=== PATIENT | male | born 1935 | race Caucasian/White ===

== ENCOUNTER 2016-10-02 17:12 | Inpatient (IN) | payer OTHER ==
[~2016-10-02] VITALS: Ht 175.3 cm; Wt 96.5 kg
[~2016-10-02 17:12] MED LIST: ACET-1256 PO; ALPR-385 PO; ASPI81TA28 PO; CALC1CAP36 PO; CHOL2000 PO; CLOP1TAB15 PO; CRD200 PO; ELQ25 PO; GLIM1TAB PO; ISORDIL PO; LEVO25TA5 PO; LISI-461 PO; LSX/40 PO; NTRGSL/4 UT; OXYC-57 PO; PRAV80TA2 PO; SPIR25TA PO
[2016-10-02] MEDS ORDERED: CRD200 PO (17:47)
[2016-10-02] MEDS ORDERED: TPRSR/25 PO (17:47)
[2016-10-02] MEDS ORDERED: ISOS10TA2 PO (17:47)
[2016-10-02 17:59] LABS: BASO % 0.2 %; BASO ABS # 0.02 K/uL (0-0.2); COMPLETE YES; EOS % 0.6 %; HEMATOCRIT 41.2 % (42-52); LYMPH % 8.2 %; LYMPH ABS # 0.88 K/uL (1.2-3.4); MEAN CELL VOLUME 95.4 fL (80-100); MEAN CORPUSCULAR HEMOGLOBIN 33.6 pg (25-34); MEAN CORPUSCULAR HGB CONC 35.2 g/dl (32-36); MEAN PLATELET VOLUME 9.1 fL (7.4-10.4); MONO % 8.3 %; NEUT % 81.7 %; PLATELET COUNT 209 K/uL (130-400); RED BLOOD COUNT 4.32 M/uL (4.7-6.1)
--- NOTE | 2016-10-02 18:11 | DIAGNOSTIC IMAGING REPORT ---
CHEST ONE VIEW PORTABLE CLINICAL HISTORY: Chest pain. Shortness of breath. COMPARISON STUDY: Chest radiograph July 29, 2016. FINDINGS: Note is made of a left subclavian biventricular pacer/AICD, median sternotomy wires and clips from bypass grafting. There is no pneumothorax. There are small bilateral pleural effusions. Mild interstitial thickening suggests mild pulmonary edema. Note is made of moderate cardiomegaly. IMPRESSION: 1. Mild pulmonary edema and small bilateral pleural effusions. 2. Stable moderate cardiomegaly. Electronically signed by: Venancio Kim M.D. 10/02/2016 6:09 PM Dictated Date/Time: 10/02/2016 6:08 PM
[2016-10-02 18:13] LABS: PROTHROMBIN TIME (PATIENT) 10.7 SECONDS (9.0-12.0)
[2016-10-02 18:16] LABS: BUN/CREATININE RATIO 19.6 (10-20); CALCIUM 9.3 mg/dl (8.5-10.1); CREATININE 2.4 mg/dl (0.60-1.40); POTASSIUM 4.9 mmol/L (3.5-5.1)
[2016-10-02] MEDS ORDERED: FUROSEMIDE 40 MG/4 ML VIAL IV SCH (19:09)
[2016-10-02] MEDS ORDERED: ONDANSETRON INJ 2 MG/ML 2 ML VIAL IV PRN (19:15)
[2016-10-02] MEDS ORDERED: NITROGLYCERIN 0.4 MG SL PER TAB CHARGE SL PRN (19:15)
[2016-10-02] MEDS ORDERED: ALPRAZOLAM 0.5 MG TAB PO PRN (19:15)
[2016-10-02] MEDS ORDERED: GLUCOSE 40% GEL 15 GM TUBE PO PRN (19:30)
[2016-10-02] MEDS ORDERED: GLUCAGON FOR INJ 1 MG VIAL SQ PRN (19:30)
[2016-10-02] MEDS ORDERED: DEXTROSE 50% 50 ML SYR IV PRN (19:30)
[2016-10-02] MEDS ORDERED: GLUCOSE 10 TABS/TUBE PO PRN (19:30)
--- NOTE | 2016-10-02 19:38 | History and Physical ---
History & Physical Date & Time of Service: Oct 02, 2016 at 19:20 Chief Complaint: Sob, Chest Pain, Nausea Primary Care Physician: Sobeida Cabrera M.D. History of Present Illness Source: patient, family, clinic records, hospital records Patient seen and examined. 80 year old male with PMHx of CAD s/p CABGx4, Severe systolic CHF EF<15% s/p BIV pacer defibrillator, HN, DM2, PAF on eliquis, PVD, CKD stage 3, Hypothyroidism and other problems listed below presents to the ED complaining of chest pain x 4 days. Patient reports he has had this chest pain off and on for years since he had a CABG in 1990. He states that he was told that the wires were too tight. He states that when he lifts something heavy sometimes this happens. He reports 5 days ago the patient lifted a 5 gallon bucket of corn. He states the neck day the bottom of his sternum was sore and since then he has had constant sternal pain that he describes as squeezing and rates as an 8/10. He reports ice packs help this pain for a short time. 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 He states distances he could usually walk he now needs to stop twice to catch his breath. This is what prompted him to come to the ED. He states he occasionally has pain in the area where the pacemaker is but denies any defibrillator shocks. He denies fevers, chills, dizziness, URI symptoms, palpitations, orthopnea, PND, nausea, vomiting, diarrhea, dysuria, calf pain and edema. He denies weight gain. In the ED patient is mildly tachycardic, Luiza are negative x1 , EKG shows ventricular paced rhythm, CXR shows mild pulmonary edema and effusions. The patient is currently resting comfortably and has not had any pain since arrival. Past Medical/Surgical History Medical Problems: (1) CKD (chronic kidney disease) stage 3, GFR 30-59 ml/min Status: Chronic (2) Coronary artery disease Permanent Comment: s/p ID s/p CABG x 4 1990 Status: Chronic (3) Diabetes mellitus, type II Status: Chronic (4) Dyslipidemia Status: Chronic (5) History of ventricular tachycardia Status: Chronic (6) Hypertension Status: Chronic (7) PAD (peripheral artery disease) Permanent Comment: s/p left FUEL ASSEMBLER / SFA / popliteal arthrectomy and angioplasty left SFA stent Status: Chronic (8) Spinal stenosis of lumbar region Status: Chronic (9) Systolic CHF, chronic Permanent Comment: LVEF 15-20% by echo 2002 LVEF 25-29% by echo 06/08/13 Status: Chronic Surgical Problems: (1) Status post cardiac pacemaker procedure Permanent Comment: initially had single chamber pacer AICD, upgraded to BiV device in 2008, generator change in 03/2015 Status: Chronic (2) Status post coronary artery bypass grafting Status: Chronic (3) Status post lumbar surgery Status: Chronic (4) Status post tonsillectomy Status: Chronic Family History FH: diabetes mellitus FATHER FH: lung cancer FATHER Social History Smoking Status: Former Smoker Alcohol Use: none Drug Use: none Marital Status: Housing status: lives with family Occupational Status: retired Immunizations History of Influenza Vaccine: Yes Influenza Vaccine Date: Jun 20, 2015 History of Tetanus Vaccine?: Yes Tetanus Immunization Date: Jun 09, 2013 History of Pneumococcal: Yes Pneumococcal Date: Feb 21, 2015 History of Hepatitis B Vaccine: No Multi-Drug Resistant Organisms History of MDRO: No Allergies Coded Allergies: Ciprofloxacin (Verified Allergy, Unknown, UNKNOWN, 10/02/16) FROM ENDO PRE-PROCEDURE ORDERSET Home Medications Scheduled Acetaminophen (Tylenol), 1,000 MG PO BID Amiodarone HCl (Amiodarone HCl), 200 MG PO BID Apixaban (Eliquis), 2.5 MG PO BID Calcitriol (Calcitriol), 0.25 MCG PO QAM Cholecalciferol (Vitamin D3), 2,000 INTUNIT PO QPM Clopidogrel (Plavix), 75 MG PO QAM Furosemide (Lasix), 40 MG PO QAM Glimepiride (Amaryl), 1 MG PO QAM Isosorbide Dinitrate (Isordil), 10 MG PO BID Levothyroxine Sodium (Levothyroxine Sodium), 25 MCG PO QAM Lisinopril (Zestril), 5 MG PO QPM Metoprolol Succinate (Metoprolol Succinate ER), 12.5 MG PO HS Pravastatin Sodium (Pravastatin Sodium), 80 MG PO QPM Spironolactone (Aldactone), 12.5 MG PO QPM Scheduled PRN Alprazolam (Xanax), 1 MG PO BID PRN for Anxiety Nitroglycerin (Nitrostat), 0.4 MG UT UD PRN for Chest Pain Review of Systems Constitutional: No chills, No fever Eyes: No worsening of vision ENT: No nasal symptoms Respiratory: + dyspnea on exertion, + shortness of breath, No cough, No dyspnea at rest Cardiovascular: + chest pain, No PND, No edema, No orthopnea, No palpitations Abdomen: No constipation, No diarrhea, No nausea, No pain, No vomiting Musculoskeletal: No calf pain, No swelling Genitourinary - Male: No dysuria Neurologic: No numbness/tingling, No vertigo Psychiatric: No anxiety Endocrine: No fatigue Hematologic / Lymphatic: No abnormal bleeding/bruising, No clotting problems Integumentary: No itch, No rash Allergic / Immunologic: No environmental allergies Physical Exam Vital Signs Date Time Temp Pulse Resp B/P Pulse Ox O2 Delivery O2 Flow Rate FiO2 10/02/16 17:50 96 Room Air 10/02/16 17:48 96 Room Air 10/02/16 17:37 110 10/02/16 17:17 36.4 111 20 108/75 94 Room Air General Appearance: + pertinent finding (Pleasant WD/WN 80 year old male lying in bed in NAD with at bedside ) Head: normocephalic, atraumatic Eyes: PERRL, EOMI, sclerae normal ENT: hearing grossly normal, pharynx normal Neck: supple, no JVD, trachea midline Respiratory/Chest: chest non-tender, lungs clear, normal breath sounds, no respiratory distress, no accessory muscle use Cardiovascular: no edema, no gallop, no JVD, no murmur, normal peripheral pulses, + tachycardia (low 100s, regular) Abdomen/GI: normal bowel sounds, non tender, soft Back: normal inspection, no muscle spasm Extremities/Musculoskelatal: no calf tenderness, normal capillary refill, no pedal edema Neurologic/Psych: alert, oriented x 3 Skin: normal color, warm/dry, no rash Lymphatic: no adenopathy Diagnostics Laboratory Results Results Past 24 Hours Test 10/02/16 17:45 10/02/16 17:50 Range/Units White Blood Count 10.70 4.8-10.8 K/uL Red Blood Count 4.32 4.7-6.1 M/uL Hemoglobin 14.5 14.0-18.0 g/dL Hematocrit 41.2 42-52 % Mean Corpuscular Volume 95.4 80-100 fL Mean Corpuscular Hemoglobin 33.6 25-34 pg Mean Corpuscular Hemoglobin Concent 35.2 32-36 g/dl Platelet Count 209 130-400 K/uL Mean Platelet Volume 9.1 7.4-10.4 fL Neutrophils (%) (Auto) 81.7 % Lymphocytes (%) (Auto) 8.2 % Monocytes (%) (Auto) 8.3 % Eosinophils (%) (Auto) 0.6 % Basophils (%) (Auto) 0.2 % Neutrophils # (Auto) 8.74 1.4-6.5 K/uL Lymphocytes # (Auto) 0.88 1.2-3.4 K/uL Monocytes # (Auto) 0.89 0.11-0.59 K/uL Eosinophils # (Auto) 0.06 0-0.5 K/uL Basophils # (Auto) 0.02 0-0.2 K/uL RDW Standard Deviation 47.6 36.4-46.3 fL RDW Coefficient of Variation 13.7 11.5-14.5 % Immature Granulocyte % (Auto) 1.0 % Immature Granulocyte # (Auto) 0.11 0.00-0.02 K/uL Prothrombin Time 10.7 9.0-12.0 SECONDS Prothromb Time International Ratio 1.0 0.9-1.1 Activated Partial Thromboplast Time 25.9 21.0-31.0 SECONDS Partial Thromboplastin Ratio 1.0 Sodium Level 139 136-145 mmol/L Potassium Level 4.9 3.5-5.1 mmol/L Chloride Level 105 98-107 mmol/L Carbon Dioxide Level 20 21-32 mmol/L Anion Gap 14.0 3-11 mmol/L Blood Urea Nitrogen 47 7-18 mg/dl Creatinine 2.40 0.60-1.40 mg/dl Est Creatinine Clear Calc Drug Dose 28.9 ml/min Estimated GFR () 28.7 Estimated GFR (Non- 24.7 BUN/Creatinine Ratio 19.6 10-20 Random Glucose 210 70-99 mg/dl Calcium Level 9.3 8.5-10.1 mg/dl Bedside Troponin I 0.010 0-0.045 ng/ml Diagnostic Radiology CXR Per radiologist read: IMPRESSION: 1. Mild pulmonary edema and small bilateral pleural effusions. 2. Stable moderate cardiomegaly. EKG Ventricular paced 115 BPM Impression Assessment and Plan 80 year old male with severe ischemic cardiomyopathy presents to the ED complaining of chest pain x 5 days, SOB x 2 days. ACUTE ON CHRONIC SYSTOLIC HEART FAILURE -Admit to tele -CXR: with mild pulmonary edema and effusions -Recent echo with EF<15% -Will diuresis with IV Lasix 40mg BID, first dose now -interrogate pacemaker -Low sodium, AHA diet -I&Os, Daily weights -Cardiology consult placed - defer repeat Echo to cardiology. CHEST PAIN - H/O CAD s/p CABG -Luiza negative x1 -Serial Luiza, EKGs -continue Plavix, BB, Statin, ACEI -cardiology consult placed - follows with Arie Bhupendra as outpatient PAROXYSMAL AFIB -currently in paced rhythm, but tachy -continue BB, Amiodarone and Eliquis -monitor in tele CKD STAGE 3 -Crea 2.4 today has been running around 2 -Increased crea could be secondary to CHF -Will diuresis with Lasix 40mg IV BID -follow PRP closely for renal function changes -avoid nephrotoxic agents as able DM2 -recent A1c 6.6 -Hold po diabetic agents -SSI coverage -BSG AC HS -consistent carb diet HTN -stable -continue Lisinopril, spironolactone -monitor in tele HYPOTHYROIDISM -continue Synthroid -check TSH HLD -continue Statin DVT PROPHYLAXIS: Eliquis CODE STATUS: FULL CODE per my discussion with the patient DISPO:In my clinical judgment this beneficiary meets acute admission criteria, established by [facility], that includes being hospitalized through two midnights. discharge planning eval Patient seen in collaboration with Dr. Sullivan VTE Prophylaxis VTE Risk Assessment Done? Y/N: Yes Risk Level: Moderate Note ATTENDING ADDENDUM Record reviewed. Patient interviewed and examined. Care coordinated with Marlene Ulloa PA-C. Please refer to her documentation for patient's history. Briefly, 80 YO male with history of ischemic cardiomyopathy and other problems as noted. Presented to ED with worsening ROBERTSON. No fever or cough. EXAM: General- no acute distress VS- as noted HEENT- Neck- + JVD Lungs- clear to auscultation Heart- RRR, ? apical S3 Abdomen- + BS, soft, nontender Extremities- trace pretibial edema; no calf tenderness Neuro- alert DATA: Hgb 14. Troponin < 0.015. BUN / creat 45/2.4. Other lab studies as noted. CXR- cardiomegaly, pulmonary edema, small pleural effusions. EKG- ventricular paced rhythm at 115/min. ASSESSMENT AND PLAN: Acute on chronic left ventricular systolic heart failure. Tachycardia- ? mechanism. Baseline LVEF ~ 15%. Manage initially with IV furosemide. Continue lisinopril and spironolactone with caution in light of elevated creatinine. Consult Cardiology. Please refer to GHADA Ulloa's documentation for discussion of other issues. Carlos Sullivan MD .
--- NOTE | 2016-10-02 20:31 | EMERGENCY ROOM VISIT NOTE ---
History Report prepared by Erick: Jo Ann Power Under the Supervision of: Dr. Rufus Liang M.D. First contact with patient: 17:20 Chief Complaint: CARDIAC ASSESSMENT Stated Complaint: SOB, CHEST PAIN, NAUSEA History of Present Illness The patient is a 80 year old male who presents to the Emergency Room with complaints of worsening shortness of breath over the past 2 days. His shortness of breath is worse with exertion. He also complains of intermittent tightness that shoots across his chest. Recently, the patient developed some epigastric abdominal pain after picking up a 5 lb gallon of corn. He states that this pain feels similar to when he was told his sternal wires were too tight 15 years ago. The patient has a history of heart disease and a-flutter. He is on Eliquis. He has a defibrillator/pacemaker. Denies fever, cough, leg swelling, or other complaints. Source of History: patient Onset: 2 days Position: other (Global - SOB) Timing: worsening Modifying Factors (Worsening): exertion Associated Symptoms: + abdominal pain, + chest pain, No cough, No fevers Review of Systems See HPI for pertinent positives & negatives. A total of 10 systems reviewed and were otherwise negative. Past Medical & Surgical Medical Problems: (1) Acute systolic CHF (congestive heart failure) (2) CKD (chronic kidney disease) stage 3, GFR 30-59 ml/min (3) Coronary artery disease (4) Diabetes mellitus, type II (5) Dyslipidemia (6) History of ventricular tachycardia (7) Hypertension (8) PAD (peripheral artery disease) (9) Spinal stenosis of lumbar region (10) Systolic CHF, chronic Surgical Problems: (1) Status post cardiac pacemaker procedure (2) Status post coronary artery bypass grafting (3) Status post lumbar surgery (4) Status post tonsillectomy Family History FH: diabetes mellitus FATHER FH: lung cancer FATHER Social History Smoking Status: Former Smoker Alcohol Use: other Drug Use: none Marital Status: Housing Status: lives with significant other Occupation Status: retired Current/Historical Medications Scheduled Acetaminophen (Tylenol), 1,000 MG PO BID Amiodarone HCl (Amiodarone HCl), 200 MG PO BID Apixaban (Eliquis), 2.5 MG PO BID Calcitriol (Calcitriol), 0.25 MCG PO QAM Cholecalciferol (Vitamin D3), 2,000 INTUNIT PO QPM Clopidogrel (Plavix), 75 MG PO QAM Furosemide (Lasix), 40 MG PO QAM Glimepiride (Amaryl), 1 MG PO QAM Isosorbide Dinitrate (Isordil), 10 MG PO BID Levothyroxine Sodium (Levothyroxine Sodium), 25 MCG PO QAM Lisinopril (Zestril), 5 MG PO QPM Metoprolol Succinate (Metoprolol Succinate ER), 12.5 MG PO HS Pravastatin Sodium (Pravastatin Sodium), 80 MG PO QPM Spironolactone (Aldactone), 12.5 MG PO QPM Scheduled PRN Alprazolam (Xanax), 1 MG PO BID PRN for Anxiety Nitroglycerin (Nitrostat), 0.4 MG UT UD PRN for Chest Pain Allergies Coded Allergies: Ciprofloxacin (Verified Allergy, Unknown, UNKNOWN, 10/02/16) FROM ENDO PRE-PROCEDURE ORDERSET Physical Exam Vital Signs Date Time Temp Pulse Resp B/P Pulse Ox O2 Delivery O2 Flow Rate FiO2 10/02/16 19:47 111 20 123/83 96 Room Air 10/02/16 17:50 96 Room Air 10/02/16 17:48 96 Room Air 10/02/16 17:37 110 10/02/16 17:17 36.4 111 20 108/75 94 Room Air Physical Exam Constitutional: Vital signs reviewed. Eyes: Pupils are equal round reactive to light. Conjunctiva are noninjected. ENT: Pharynx is clear without erythema or exudate. Mucous membranes are moist. Neck supple without meningeal signs. Respiratory: Clear to auscultation bilaterally. Breath sounds are equal bilaterally. Cardiovascular: Tachycardic heart rate at 110 and regular rhythm. . GI: Soft, nondistended and nontender. Bowel sounds are present. Musculoskeletal: No peripheral edema. No lower extremity tenderness. Integumentary: No cyanosis. Neurological: The patient is awake and alert. No focal deficits. Psychiatric: Normal affect. Medical Decision & Procedures ER Provider Diagnostic Interpretation: X-ray results as stated below per interpretation by me and the radiologist: CHEST ONE VIEW PORTABLE CLINICAL HISTORY: Chest pain. Shortness of breath. COMPARISON STUDY: Chest radiograph July 29, 2016. FINDINGS: Note is made of a left subclavian biventricular pacer/AICD, median sternotomy wires and clips from bypass grafting. There is no pneumothorax. There are small bilateral pleural effusions. Mild interstitial thickening suggests mild pulmonary edema. Note is made of moderate cardiomegaly. IMPRESSION: 1. Mild pulmonary edema and small bilateral pleural effusions. 2. Stable moderate cardiomegaly. Electronically signed by: Venancio Kim M.D. 10/02/2016 6:09 PM Dictated Date/Time: 10/02/2016 6:08 PM Laboratory Results 10/02/16 17:45 Red Blood Count 4.32, Mean Corpuscular Volume 95.4, Mean Corpuscular Hemoglobin 33.6, Mean Corpuscular Hemoglobin Concent 35.2, Mean Platelet Volume 9.1, Neutrophils (%) (Auto) 81.7, Lymphocytes (%) (Auto) 8.2, Monocytes (%) (Auto) 8.3, Eosinophils (%) (Auto) 0.6, Basophils (%) (Auto) 0.2, Neutrophils # (Auto) 8.74, Lymphocytes # (Auto) 0.88, Monocytes # (Auto) 0.89, Eosinophils # (Auto) 0.06, Basophils # (Auto) 0.02 10/02/16 17:45 Test 10/02/16 17:45 10/02/16 17:50 White Blood Count 10.70 K/uL (4.8-10.8) Red Blood Count 4.32 M/uL (4.7-6.1) Hemoglobin 14.5 g/dL (14.0-18.0) Hematocrit 41.2 % (42-52) Mean Corpuscular Volume 95.4 fL (80-100) Mean Corpuscular Hemoglobin 33.6 pg (25-34) Mean Corpuscular Hemoglobin Concent 35.2 g/dl (32-36) Platelet Count 209 K/uL (130-400) Mean Platelet Volume 9.1 fL (7.4-10.4) Neutrophils (%) (Auto) 81.7 % Lymphocytes (%) (Auto) 8.2 % Monocytes (%) (Auto) 8.3 % Eosinophils (%) (Auto) 0.6 % Basophils (%) (Auto) 0.2 % Neutrophils # (Auto) 8.74 K/uL (1.4-6.5) Lymphocytes # (Auto) 0.88 K/uL (1.2-3.4) Monocytes # (Auto) 0.89 K/uL (0.11-0.59) Eosinophils # (Auto) 0.06 K/uL (0-0.5) Basophils # (Auto) 0.02 K/uL (0-0.2) RDW Standard Deviation 47.6 fL (36.4-46.3) RDW Coefficient of Variation 13.7 % (11.5-14.5) Immature Granulocyte % (Auto) 1.0 % Immature Granulocyte # (Auto) 0.11 K/uL (0.00-0.02) Prothrombin Time 10.7 SECONDS (9.0-12.0) Prothromb Time International Ratio 1.0 (0.9-1.1) Activated Partial Thromboplast Time 25.9 SECONDS (21.0-31.0) Partial Thromboplastin Ratio 1.0 Anion Gap 14.0 mmol/L (3-11) Est Creatinine Clear Calc Drug Dose 28.9 ml/min Estimated GFR () 28.7 Estimated GFR (Non- 24.7 BUN/Creatinine Ratio 19.6 (10-20) Calcium Level 9.3 mg/dl (8.5-10.1) Bedside Troponin I 0.010 ng/ml (0-0.045) Laboratory results as reviewed by me. ECG Indication: SOB/dyspnea Rate (beats per minute): 115 Rhythm: other (ventricularly paced) Findings: no acute ischemic change, other (occasional atrial paced complexes) ED Course 1723: The patient was evaluated in room B6. A complete history and physical exam was performed. 1818: I reassessed the patient. He was not having any dyspnea or chest discomfort at this time. He agreed with the treatment plan. 1820: I discussed the case with [facility]. The patient will be evaluated for further management. Medical Decision This is a 80-year-old male presents with chest pain and shortness breath. Differential diagnoses include unstable angina, AK, pneumonia, pleurisy, pneumothorax, pleural effusion, CHF. I did perform a limited focused review of portions of the patient's old chart on the electronic medical record. He was admitted for chest pain July of last year. He has a history of severe cardiomyopathy and AK. He was put on Eliquis for atrial flutter. I did evaluate the patient as noted above. IV access was established. The patient was placed on a continuous court monitor. He is slightly tachycardic. He is not currently having any chest discomfort and is not short of breath at rest. He does have a history of significant CHF with a very low EF with ischemic cardiomyopathy. I did order and personally review the patient' s 12-lead EKG and chest x-ray as described above. His chest x-ray demonstrates congestive changes. I did order and review the patient's blood work as noted in the electronic medical record. Troponin is negative. Creatinine is slightly elevated above baseline. I did discuss the test results with the patient. He is not currently having any symptoms. I did recommend hospitalization for further evaluation. I did discuss the case with the hospitalist and director of casework. Consults Time Called: 1817 Consulting Physician: [facility] Returned Call: 1820 I discussed the case with her. The patient will be evaluated for further management. Impression Primary Impression: Exertional chest pain Additional Impression: Chronic kidney disease Scribe Attestation The scribe's documentation has been prepared under my direct and personally reviewed by me in its entirety. I confirm that the note above accurately reflects all work, treatment, procedures, and medical decision making performed by me. Departure Information Dispostion Being Evaluated By Hospitalist Referrals Sobeida Cabrera M.D. (PCP) Patient Instructions My [facility] Problem Qualifiers
[2016-10-02] MEDS ORDERED: METOPROLOL SUCC 25MG EXT REL TAB PO SCH (21:00)
[2016-10-02] MEDS ORDERED: SPIRONOLACTONE 25 MG TAB PO SCH (21:00)
[2016-10-02 21:15] VITALS: BP 121/83; PULSE 113; TEMP 36.7; O2SAT 93; Ht 175.3 cm; Wt 96.5 kg
[2016-10-02] MEDS: LISINOPRIL 5 MG TAB PO SCH (21:39)
[2016-10-02] MEDS: APIXABAN 2.5 MG TAB PO SCH (21:39)
[2016-10-02] MEDS: CHOLECALCIFEROL 1000 INTER.UNIT TAB PO SCH (21:41)
[2016-10-02] MEDS: ISOSORBIDE DINITRATE 10 MG TAB PO SCH (21:41)
[2016-10-02] MEDS: PRAVASTATIN SOD 40 MG TAB PO SCH (21:41)
[2016-10-02] MEDS: AMIODARONE 200 MG TAB PO SCH (21:42)
[2016-10-02] MEDS: INSULIN ASPART 100 UNITS/ML 3 ML PEN SC SCH (21:46)
[2016-10-02 23:48] VITALS: BP 107/69; PULSE 114; TEMP 36.8; O2SAT 94
[2016-10-03] VITALS (9 sets, daily range): BP systolic 81–108; BP diastolic 47–70; PULSE 60–117; TEMP 36.7–37.2; O2SAT 91–95
[2016-10-03 01:24] LABS: CKMB/CK RATIO 2.6 (0-3.0)
[2016-10-03] MEDS: LEVOTHYROXINE 25 MCG TAB PO SCH (05:30)
[2016-10-03 06:17] LABS: HEMATOCRIT 40.5 % (42-52); MEAN CELL VOLUME 97.1 fL (80-100); MEAN CORPUSCULAR HEMOGLOBIN 32.6 pg (25-34); MEAN CORPUSCULAR HGB CONC 33.6 g/dl (32-36); MEAN PLATELET VOLUME 8.9 fL (7.4-10.4); PLATELET COUNT 189 K/uL (130-400); RED BLOOD COUNT 4.17 M/uL (4.7-6.1); WHITE BLOOD COUNT 8.94 K/uL (4.8-10.8)
[2016-10-03 06:47] LABS: BLOOD UREA NITROGEN 45 mg/dl (7-18); BUN/CREATININE RATIO 18.9 (10-20); CALCIUM 9.5 mg/dl (8.5-10.1); CARBON DIOXIDE 26 mmol/L (21-32); CHLORIDE 104 mmol/L (98-107); GLUCOSE 122 mg/dl (70-99); MAGNESIUM 2.6 mg/dl (1.8-2.4); POTASSIUM 4.6 mmol/L (3.5-5.1); SODIUM 140 mmol/L (136-145)
[2016-10-03 06:57] LABS: CKMB/CK RATIO 2.3 (0-3.0)
[2016-10-03] MEDS: ISOSORBIDE DINITRATE 10 MG TAB PO SCH ×2 (08:38→12:20)
[2016-10-03] MEDS: INSULIN ASPART 100 UNITS/ML 3 ML PEN SC SCH ×4 (08:39→20:14)
[2016-10-03] MEDS: FUROSEMIDE INJ 40 MG in SYRINGE 0 ML IV SCH ×2 (09:01→17:00)
[2016-10-03] MEDS: AMIODARONE 200 MG TAB PO SCH ×4 (09:02→20:12)
[2016-10-03] MEDS: APIXABAN 2.5 MG TAB PO SCH ×2 (09:02→20:12)
[2016-10-03] MEDS: CALCITRIOL 0.25 MCG CAP PO SCH (09:02)
[2016-10-03] MEDS: CLOPIDOGREL BISULFATE 75 MG TAB PO SCH (09:02)
--- NOTE | 2016-10-03 10:55 | CARDIOLOGY CONSULTATION ---
DATE OF CONSULTATION: 10/03/2016 REFERRING: Dr. Sullivan. PRIMARY CARE PHYSICIAN: Dr. Cabrera. INDICATIONS: Congestive heart failure, chest discomfort. HISTORY OF PRESENT ILLNESS: The patient is a 80-year-old male well known to cardiology whose history is notable for: 1. Longstanding severe ischemic cardiomyopathy with severe LV dysfunction, EF less than 20% with compensated class 3 systolic congestive heart failure, history of remote coronary bypass grafting x4 in 1990, history of pacer defibrillator implantation with subsequent upgrade to biventricular pacer defibrillator device in July 2009 with high lead thresholds and premature battery depletion. Underlying medical problems include atherosclerotic peripheral vascular disease status post prior percutaneous intervention left lower extremity in 2006, 2013 and in June 2016. The patient's acute intervention and last hospitalization was in June with mechanical arthrectomy and aspiration thrombectomy of the left common femoral artery. Underlying medical problems also include chronic renal insufficiency, type 2 diabetes mellitus, dyslipidemia, history of chronic lumbar pain. The patient presents this admission noting having been relatively stable recently, but presented with approximately 2-day history of worsening shortness of breath and chest pressure pain. The patient carries a history of chronic chest wall pain and discomfort, but felt symptoms were more pronounced and noted decline in exercise capacity acutely with associated fatigue. He has recently had reduction in Isordil dosing and addition of low dose beta natalia and felt medications if only fairly tolerated with increased nightmares at night after taking Toprol in the evening. He denies fevers, chills or productive cough. Notes no bleeding. Notes no melena, hematochezia, dysuria or hematuria. Feels weight has been stable. Notes no overt edema. Denies headache or visual changes. ALLERGIES: None. MEDICATIONS PRIOR TO HOSPITALIZATION: Per list were clopidogrel 75 mg p.o. every day, glimepiride 1 mg p.o. every day, pravastatin 80 mg p.o. per day, metoprolol succinate 12.5 mg at bedtime, isosorbide dinitrate 10 mg twice per day, furosemide 40 mg p.o. every day, lisinopril 5 mg p.o. every day, apixaban 2.5 mg twice per day, alprazolam p.r.n., levothyroxine 25 mcg p.o. every day, Rocaltrol 0.25 mcg p.o. every day, nitroglycerin sublingually p.r.n., spironolactone 12.5 mg p.o. every day, amiodarone 200 mg p.o. b.i.d., vitamin D, and Tylenol. PAST SURGICAL HISTORY: Notable for as described, coronary bypass grafting x4 in 1990, prior pacemaker insertion, initially in 2002 with an upgrade to biventricular pacer defibrillator in 2010, replacement of pacer defibrillator in March 2015 with high LV threshold, history of lumbar decompressive surgery, remote tonsillectomy, and multiple peripheral revascularization procedures with atherectomy in 2006, 2013 and 2015. FAMILY HISTORY: Noncontributory. SOCIAL HISTORY: The patient is a nonsmoker, nondrinker. He is active about his home when tolerated. PHYSICAL EXAMINATION: VITAL SIGNS: Heart rate 110-115, blood pressure is 100/64. HEENT: Normocephalic, atraumatic. Nares without discharge. Throat was clear. NECK: Supple without thyromegaly, lymphadenopathy. There is no distinct jugular venous distention at 30 degrees. LUNGS: Reveal mildly diminished breath sounds at the bases with few scattered crackles. CARDIOVASCULAR: Regular but tachycardic. There is no S3 gallop audible. PMI is displaced laterally with mild apical heave. Pacer defibrillator sites with minimal tenderness. ABDOMEN: Soft, nontender. EXTREMITIES: Without cyanosis or clubbing. There is no peripheral edema on examination. LABORATORY AND IMAGING DATA: EKG reveals ventricular paced rhythm, rate of 115 likely presenting underlying AFib/flutter with rapid ventricular response, rapid ventricular tracking. Sodium is 140, potassium is 4.6, chloride is 104, bicarb is 26, BUN is 45, and creatinine is 2.4 up from usual baseline at 2.0. TSH is 4.6. White cell count is 8.9, hemoglobin is 13.6. Chest x-ray reveals mild congestive heart failure and bilateral pleural effusions. Echocardiogram last performed in July 2016 demonstrates severe LV dysfunction with severe global hypokinesis, EF less than 15%. IMPRESSION: A 80-year-old male presents with acute decompensated congestive heart failure secondary to likely lapsed into atrial fibrillation/flutter with rapid ventricular pacing. No overt signs of acute myocardial ischemia or coronary syndrome. PLAN: We will discontinue Toprol due to complaints of nightmares and poor tolerance. We will increase amiodarone dosing to 4 times per day. Pacer device interrogation will be performed and reprogrammed to limit ventricular tracking at higher level rates. Continue anticoagulation with apixaban. Consider resuming higher dose as isosorbide if blood pressure allows. The patient has received IV furosemide times single dose with good clinical response and greater than 1 liter diuresis. We will hold IV diuretics after this evening pending clinical response to changes as above. MTDD
[2016-10-03] MEDS: ACETAMINOPHEN 325 MG TAB PO PRN ×2 (12:25→23:19)
[2016-10-03] MEDS ORDERED: PHARMACY GLYCEMIC MGMT CONSULT PRN (14:21)
--- NOTE | 2016-10-03 14:27 | Progress Note ---
Medicine Progress Note Date & Time of Visit: Oct 03, 2016 at 14:06. Subjective 80 yo man who presents to the ER with decreased exercise tolerance and chest pain. He has chronic substernal chest wall pain since CABG in 1990, however, this is more in the anterior left chest wall and is described as a tightness. There are no associated symptoms of diaphoresis, lightheadedness, nausea, vomiting, diarrhea, URI symptoms, headaches, abdominal pain. He also denies palpitations. He doesn't know what triggers the chest pain, but does seem to have it on exertion. He quantifies his exercise intolerance by saying that he could walk 15- 20 minutes without stopping just a few weeks ago and in the last few days he couldn't walk more than a few steps as he couldn't breathe. He denies swelling or weight gain. He denies orthopnea or PND although has nocturia which does wake him up at night. Currently doing well Has a small headache after PM adjustment today-expected Reports no chest pain at this time. Feels he can walk a little further today Cards made adjustments to meds-changed amio and stopped Toprol CE negative overnight Objective Last 8 Hrs Date Time Temp Pulse Resp B/P Pulse Ox O2 Delivery O2 Flow Rate FiO2 10/03/16 11:20 36.7 117 20 88/62 95 Room Air 10/03/16 09:53 91 Room Air 10/03/16 08:00 Room Air 10/03/16 07:53 36.9 92 20 100/64 91 Room Air Physical Exam: GEN: WNWD, in no acute distress, alert and appropriate HEENT: NC/AT, normal sclerae CARDIO: tachy rate, S1/2 heard without m/g/r LUNGS: CTA bilaterally, no crackles, rales or wheezes, good diaphragmatic excursion ABD: soft, non-tender, non-distended, no rebound or guarding EXTREMITY: no LE swelling or edema, extremities are warm and well-perfused NEURO: CN 2-12 grossly intact, sensation intact throughout MUSC: strength intact throughout, no gross focal deficits SKIN: warm and dry Laboratory Results: Last 24 Hours Test 10/02/16 17:45 10/02/16 17:50 10/02/16 21:03 10/03/16 00:25 White Blood Count 10.70 K/uL Red Blood Count 4.32 M/uL Hemoglobin 14.5 g/dL Hematocrit 41.2 % Mean Corpuscular Volume 95.4 fL Mean Corpuscular Hemoglobin 33.6 pg Mean Corpuscular Hemoglobin Concent 35.2 g/dl Platelet Count 209 K/uL Mean Platelet Volume 9.1 fL Neutrophils (%) (Auto) 81.7 % Lymphocytes (%) (Auto) 8.2 % Monocytes (%) (Auto) 8.3 % Eosinophils (%) (Auto) 0.6 % Basophils (%) (Auto) 0.2 % Neutrophils # (Auto) 8.74 K/uL Lymphocytes # (Auto) 0.88 K/uL Monocytes # (Auto) 0.89 K/uL Eosinophils # (Auto) 0.06 K/uL Basophils # (Auto) 0.02 K/uL RDW Standard Deviation 47.6 fL RDW Coefficient of Variation 13.7 % Immature Granulocyte % (Auto) 1.0 % Immature Granulocyte # (Auto) 0.11 K/uL Prothrombin Time 10.7 SECONDS Prothromb Time International Ratio 1.0 Activated Partial Thromboplast Time 25.9 SECONDS Partial Thromboplastin Ratio 1.0 Sodium Level 139 mmol/L Potassium Level 4.9 mmol/L Chloride Level 105 mmol/L Carbon Dioxide Level 20 mmol/L Anion Gap 14.0 mmol/L Blood Urea Nitrogen 47 mg/dl Creatinine 2.40 mg/dl Est Creatinine Clear Calc Drug Dose 28.9 ml/min Estimated GFR () 28.7 Estimated GFR (Non- 24.7 BUN/Creatinine Ratio 19.6 Random Glucose 210 mg/dl Calcium Level 9.3 mg/dl Bedside Troponin I 0.010 ng/ml Bedside Glucose 207 mg/dl Total Creatine Kinase 128 U/L Creatine Kinase MB 3.3 ng/ml Creatine Kinase MB Ratio 2.6 Troponin I < 0.015 ng/ml Test 10/03/16 06:00 10/03/16 06:44 10/03/16 10:48 White Blood Count 8.94 K/uL Red Blood Count 4.17 M/uL Hemoglobin 13.6 g/dL Hematocrit 40.5 % Mean Corpuscular Volume 97.1 fL Mean Corpuscular Hemoglobin 32.6 pg Mean Corpuscular Hemoglobin Concent 33.6 g/dl RDW Standard Deviation 48.7 fL RDW Coefficient of Variation 13.9 % Platelet Count 189 K/uL Mean Platelet Volume 8.9 fL Sodium Level 140 mmol/L Potassium Level 4.6 mmol/L Chloride Level 104 mmol/L Carbon Dioxide Level 26 mmol/L Anion Gap 10.0 mmol/L Blood Urea Nitrogen 45 mg/dl Creatinine 2.40 mg/dl Est Creatinine Clear Calc Drug Dose 28.6 ml/min Estimated GFR () 28.7 Estimated GFR (Non- 24.7 BUN/Creatinine Ratio 18.9 Random Glucose 122 mg/dl Calcium Level 9.5 mg/dl Magnesium Level 2.6 mg/dl Total Creatine Kinase 115 U/L Creatine Kinase MB 2.6 ng/ml Creatine Kinase MB Ratio 2.3 Troponin I < 0.015 ng/ml Thyroid Stimulating Hormone (TSH) 4.650 uIu/ml Bedside Glucose 135 mg/dl 204 mg/dl Assessment & Plan 80 year old male with severe ischemic cardiomyopathy presents to the ED complaining of chest pain x 5 days, SOB x 2 days. ACUTE ON CHRONIC SYSTOLIC HEART FAILURE -cont monitor on tele -CXR: with mild pulmonary edema and effusions -defer repeat TTE to Cardiology -Cont Lasix 40mg tonight, then hold on further diuresis per Cards recs -interrogated pacemaker and adjustments made today -Low sodium, AHA diet -I&Os, Daily standing weights -appreciate Cards team seeing him and making recs -adjust amio and Toprol was stopped -will increase Isordil as BP tolerates-currently SBP around 100 so will hold at current dose CHEST PAIN - H/O CAD s/p CABG -serial enzymes negative -EKG A-sensing, V-pacing with HR 117 and QTc 488 -continue Plavix, Statin, ACEI--BB held because of nightmares per cards team ( above) -defer workup to Cards team PAROXYSMAL AFIB -currently in paced rhythm, but tachy -continue BB, Amiodarone and Eliquis -adjustments made to pacer and amio today CKD STAGE 3 -Crea 2.4 today has been running around 2 -Increased crea could be secondary to CHF -cont with diuresis -follow PRP in am -avoid nephrotoxic agents as able DM2 -recent A1c 6.6 -Hold po diabetic agents -SSI coverage -BSG AC HS -consistent carb diet HTN -controlled and slightly low -continue low doses of Lisinopril, spironolactone -monitor in tele HYPOTHYROIDISM -continue Synthroid -check TSH HLD -continue Statin DVT PROPHYLAXIS: Eliquis CODE STATUS: FULL CODE per my discussion with the patient DO Joe Allison Hospitalist Current Inpatient Medications: Current Inpatient Medications Medications (Trade) Dose Ordered Sig/Mireille Route Start Time Stop Time Status Last Admin Dose Admin Acetaminophen (Tylenol Tab) 650 mg Q4H PRN PO 10/02/16 19:15 11/01/16 19:14 10/03/16 12:25 650 MG Ondansetron HCl (Zofran Inj) 4 mg Q6H PRN IV 10/02/16 19:15 11/01/16 19:14 Nitroglycerin 0.4 mg 0.4 mg UD PRN SL 10/02/16 19:15 11/01/16 19:14 Furosemide/Syringe (Lasix Inj/ Syringe) 4 ml @ 4 mls/min BID17 IV 10/03/16 09:00 11/02/16 08:59 Future Hold 10/03/16 09:01 4 MLS/MIN Alprazolam (Xanax Tab) 1 mg BID PRN PO 10/02/16 19:15 11/01/16 19:14 Apixaban (Eliquis Tab) 2.5 mg BID PO 10/02/16 21:00 11/01/16 20:59 10/03/16 09:02 2.5 MG Calcitriol (Rocaltrol Cap) 0.25 mcg QAM PO 10/03/16 09:00 11/02/16 08:59 10/03/16 09:02 0.25 MCG Clopidogrel Bisulfate (plAVix TAB) 75 mg QAM PO 10/03/16 09:00 11/02/16 08:59 10/03/16 09:02 75 MG Isosorbide Dinitrate (Isordil Tab) 10 mg BID@0700,1200 PO 10/02/16 21:00 11/01/16 20:59 10/03/16 12:20 10 MG Levothyroxine Sodium (Synthroid Tab) 25 mcg DAILYBB PO 10/03/16 06:00 11/02/16 08:59 10/03/16 05:30 25 MCG Spironolactone (Aldactone Tab) 12.5 mg DAILY@1700 PO 10/02/16 21:00 11/01/16 20:59 10/02/16 21:40 12.5 MG Cholecalciferol (Vitamin D Tab) 2,000 inter.unit QPM PO 10/02/16 21:00 11/01/16 20:59 10/02/16 21:41 2,000 INTER.UNIT Pravastatin Sodium (Pravachol Tab) 80 mg QPM PO 10/02/16 21:00 11/01/16 20:59 10/02/16 21:41 80 MG Insulin Aspart (novoLOG ASPART) SLIDING SCALE If C... ACHS SC 10/02/16 21:00 11/01/16 20:59 10/03/16 12:21 6 UNITS Glucose (Glucose 40% Gel) 15-30 GRAMS 15 GRAMS... UD PRN PO 10/02/16 19:30 11/01/16 19:29 Glucose (Glucose Chew Tab) 4-8 Tablets 4 Tabl... UD PRN PO 10/02/16 19:30 11/01/16 19:29 Dextrose (Dextrose 50% 50ML Syringe) 25-50ML OF 50% DW IV FOR... UD PRN IV 10/02/16 19:30 11/01/16 19:29 Glucagon (Glucagon Inj) 1 mg UD PRN SQ 10/02/16 19:30 11/01/16 19:29 Lisinopril (Zestril Tab) 5 mg QPM PO 10/02/16 21:00 11/01/16 20:59 10/02/16 21:39 5 MG Amiodarone HCl (Cordarone Tab) 200 mg QID PO 10/03/16 13:00 11/02/16 12:59
--- NOTE | 2016-10-03 15:03 | Pharmacy Progress Note ---
Glycemic Control Intl Consult Date of Service Oct 03, 2016. Scope Glycemic Pharmacist consulted by Dr Ojeda on 10/03/2016 for glycemic control and to write orders per [facility] inpatient glycemic control protocol Objective Weight (Kilograms): 96.700 Accuchecks BSG (last 24hrs): Test 10/02/16 17:45 10/02/16 21:03 10/03/16 06:00 10/03/16 06:44 Random Glucose 210 mg/dl (70-99) 122 mg/dl (70-99) Bedside Glucose 207 mg/dl (70-99) 135 mg/dl (70-99) Test 10/03/16 10:48 Bedside Glucose 204 mg/dl (70-99) Laboratory Data (last 24hrs) Test 10/02/16 17:45 10/03/16 06:00 Anion Gap 14.0 mmol/L 10.0 mmol/L BUN/Creatinine Ratio 19.6 18.9 Blood Urea Nitrogen 47 mg/dl 45 mg/dl Creatinine 2.40 mg/dl 2.40 mg/dl Potassium Level 4.9 mmol/L 4.6 mmol/L Sodium Level 139 mmol/L 140 mmol/L White Blood Count 10.70 K/uL 8.94 K/uL Red Blood Count 4.32 M/uL Hemoglobin 14.5 g/dL Hematocrit 41.2 % Mean Corpuscular Volume 95.4 fL Mean Corpuscular Hemoglobin 33.6 pg Mean Corpuscular Hemoglobin Concent 35.2 g/dl Platelet Count 209 K/uL Mean Platelet Volume 9.1 fL Neutrophils (%) (Auto) 81.7 % Lymphocytes (%) (Auto) 8.2 % Monocytes (%) (Auto) 8.3 % Eosinophils (%) (Auto) 0.6 % Basophils (%) (Auto) 0.2 % Neutrophils # (Auto) 8.74 K/uL Lymphocytes # (Auto) 0.88 K/uL Monocytes # (Auto) 0.89 K/uL Eosinophils # (Auto) 0.06 K/uL Basophils # (Auto) 0.02 K/uL HbA1c 6.6% on 07/29/2016 Recent Pertinent Medications Outpatient Anti-diabetic Regimen: * glimepiride 1 mg daily * A1c = 6.6 % 07/29/16 The patient is currently receiving: * Correctional Insulin: Novolog Correction per scale ACHS Goal Range: Low 100 mg/dL - High 140 mg/dL Correction Factor: 45 mg/dL/unit * Prandial insulin: Per carb ratio of 1 unit per 15 grams CHO consumed Risk Factors for Insulin Resistance: * Steroids: * Infection: * Pressors: * IVF: * Recent Surgery * Diet: type 2 diabetic diet, changing to NPO after midnight * Mechanical Ventilation: Assessment & Plan ASSESSMENT: * ADA & AACE recommend a goal blood sugar range 140-180 mg/dl for the majority of critically ill & non-critically ill patients. However, more stringent targets may be selected in individual cases. PLAN FOR INPATIENT GLYCEMIC CONTROL: * Holding outpatient oral diabetes medications * Correctional Insulin with NOVOLOG per scale ACHS or Q6hrs while NPO * Goal Range: Low 100 mg/dL - High 140 mg/dL * Correction Factor: 30 mg/dL/unit * Nutritional / Prandial insulin per carb ratio of 1 unit per 12 grams CHO consumed * Please note that the plan above was derived based on current level of insulin resistance and hospital stress. These recommendations are appropriate for inpatient admission only. Plan of care upon discharge will need to be reassessed to avoid potential outpatient hypo/hyperglycemia. Thank you.
[2016-10-03] MEDS: CHOLECALCIFEROL 1000 INTER.UNIT TAB PO SCH (20:13)
[2016-10-03] MEDS: PRAVASTATIN SOD 40 MG TAB PO SCH (20:13)
[2016-10-03] MEDS: LISINOPRIL 5 MG TAB PO SCH (20:14)
[2016-10-04 04:00] VITALS: BP 109/69; PULSE 67; TEMP 37.2; O2SAT 94
[2016-10-04] MEDS: LEVOTHYROXINE 25 MCG TAB PO SCH (05:11)
[2016-10-04 06:28] LABS: MEAN CELL VOLUME 95.7 fL (80-100); MEAN CORPUSCULAR HEMOGLOBIN 32.5 pg (25-34); MEAN CORPUSCULAR HGB CONC 33.9 g/dl (32-36); MEAN PLATELET VOLUME 9.2 fL (7.4-10.4); PLATELET COUNT 174 K/uL (130-400); RED BLOOD COUNT 3.97 M/uL (4.7-6.1); WHITE BLOOD COUNT 7.84 K/uL (4.8-10.8)
[2016-10-04 06:51] LABS: BUN/CREATININE RATIO 21.1 (10-20); CALCIUM 9.1 mg/dl (8.5-10.1); CREATININE 2.6 mg/dl (0.60-1.40); POTASSIUM 4.2 mmol/L (3.5-5.1)
[2016-10-04] MEDS: INSULIN ASPART 100 UNITS/ML 3 ML PEN SC SCH ×4 (07:00→21:03)
[2016-10-04 07:56] VITALS: BP 109/69; PULSE 73; TEMP 36.5; O2SAT 92
[2016-10-04] MEDS: APIXABAN 2.5 MG TAB PO SCH ×2 (08:33→21:01)
[2016-10-04] MEDS: AMIODARONE 200 MG TAB PO SCH ×2 (08:33→21:00)
[2016-10-04] MEDS: CLOPIDOGREL BISULFATE 75 MG TAB PO SCH (08:33)
[2016-10-04] MEDS: CALCITRIOL 0.25 MCG CAP PO SCH (08:34)
--- NOTE | 2016-10-04 10:36 | Pharmacy Progress Note ---
Glycemic: Assessment & Plan Date of Service Oct 04, 2016. Assessment & Plan Assessment * BSG's decreased from 204 to 140 mg/dL at dinner yesterday prior to tightening regimen * BSG's decreased from 140 to 108 mg/dL after one dose at current tighter regimen * Will loosen both correction factor and carb ratio slightly, but not quire to regimen that caused BSG's to increase to 204 mg/dL * No basal insulin needed for now Plan * Basal insulin: None * Correctional Insulin: Novolog Correction per scale ACHS Goal Range: Low 100 mg/dL - High 140 mg/dL Loosen Correction Factor: 35 mg/dL/unit * Prandial insulin: Loosen carb ratio of 1 unit per 14 grams CHO consumed Pharmacy will continue to monitor patient daily and write orders per [facility] inpatient glycemic control protocol. Thanks. * Please note that the plan above was derived based on current level of insulin resistance and hospital stress. These recommendations are appropriate for inpatient admission only. Plan of care upon discharge will need to be reassessed to avoid potential outpatient hypo/hyperglycemia.
[2016-10-04] MEDS: ACETAMINOPHEN 325 MG TAB PO PRN (10:43)
[2016-10-04 12:03] VITALS: BP 124/75; PULSE 62; TEMP 36.7; O2SAT 91
--- NOTE | 2016-10-04 12:56 | CARDIOLOGY PROGRESS NOTE ---
DATE: 10/04/2016 The patient seen and examined. Chart, medications, telemetry reviewed. OBJECTIVE: VITAL SIGNS: Heart rate is 62-80. Blood pressure is 124/75, O2 saturation is 91% on room air. NECK: Thick. There is no distinct jugular venous distention. LUNGS: Reveal diminished breath sounds, but no rhonchi, rale or wheeze. CARDIOVASCULAR: Regular with paced rhythm. ABDOMEN: Soft. EXTREMITIES: Without cyanosis or clubbing. Edema has significantly improved. LABORATORY DATA: Sodium is 140, potassium is 4.2, chloride is 105, bicarbonate 24, BUN is 55, creatinine is 2.6. EKG reveals ventricular paced rhythm with biventricular pacing rate 62. IMPRESSION: A 80-year-old male with history of severe ischemic cardiomyopathy and class III congestive heart failure, presented with acute decompensated systolic heart failure in part secondary to poor tolerance of atrial arrhythmia. Pacemaker has been reprogrammed with appropriate pacing, now rates in the 60s and 70s. Hold diuretics for time being given worsening renal insufficiency. We will resume isosorbide. Continue to hold spironolactone. Will continue amiodarone at 200 mg twice per day. Increase activity in hospital. The patient is anxious to be discharged, though overnight observation 1 more day may be warranted given worsening creatinine.
[2016-10-04] MEDS: ISOSORBIDE DINITRATE 10 MG TAB PO SCH (13:10)
[2016-10-04 15:30] VITALS: BP 137/75; PULSE 62; TEMP 36.8; O2SAT 94
[2016-10-04 19:38] VITALS: BP 135/79; PULSE 66; TEMP 36.7; O2SAT 93
[2016-10-04] MEDS: LISINOPRIL 5 MG TAB PO SCH (21:00)
[2016-10-04] MEDS: CHOLECALCIFEROL 1000 INTER.UNIT TAB PO SCH (21:00)
[2016-10-04] MEDS: PRAVASTATIN SOD 40 MG TAB PO SCH (21:01)
--- NOTE | 2016-10-04 21:27 | Progress Note ---
Medicine Progress Note Date & Time of Visit: Oct 04, 2016 at 16:37. Subjective feeling well denies CP/SOB has chronic substernal CP [place] adjusted meds and PM adjustment yesterday Ambulatory without walker at baseline and now Sugars are at goal Nephro consult pending with worsened creatinine. Saw [facility] last month in office baseline creat 1.6-1.8, now 2.6-->off lasix and spironolactone. Objective Last 8 Hrs Date Time Temp Pulse Resp B/P Pulse Ox O2 Delivery O2 Flow Rate FiO2 10/04/16 15:30 36.8 62 18 137/75 94 Room Air 10/04/16 12:03 36.7 62 22 124/75 91 Room Air 10/04/16 12:00 Room Air Physical Exam: GEN: WNWD, in no acute distress, alert and appropriate HEENT: NC/AT, normal sclerae CARDIO:reg rate, S1/2 heard without m/g/r LUNGS: CTA bilaterally, no crackles, rales or wheezes, good diaphragmatic excursion ABD: soft, non-tender, non-distended, no rebound or guarding EXTREMITY: no LE swelling or edema, extremities are warm and well-perfused NEURO: CN 2-12 grossly intact, sensation intact throughout MUSC: strength intact throughout, no gross focal deficits SKIN: warm and dry Laboratory Results: Last 24 Hours Test 10/03/16 20:04 10/04/16 05:20 10/04/16 06:26 10/04/16 10:48 Bedside Glucose 108 mg/dl 105 mg/dl 168 mg/dl White Blood Count 7.84 K/uL Red Blood Count 3.97 M/uL Hemoglobin 12.9 g/dL Hematocrit 38.0 % Mean Corpuscular Volume 95.7 fL Mean Corpuscular Hemoglobin 32.5 pg Mean Corpuscular Hemoglobin Concent 33.9 g/dl RDW Standard Deviation 47.9 fL RDW Coefficient of Variation 13.8 % Platelet Count 174 K/uL Mean Platelet Volume 9.2 fL Sodium Level 140 mmol/L Potassium Level 4.2 mmol/L Chloride Level 105 mmol/L Carbon Dioxide Level 24 mmol/L Anion Gap 11.0 mmol/L Blood Urea Nitrogen 55 mg/dl Creatinine 2.60 mg/dl Est Creatinine Clear Calc Drug Dose 26.4 ml/min Estimated GFR () 26.0 Estimated GFR (Non- 22.4 BUN/Creatinine Ratio 21.1 Random Glucose 107 mg/dl Calcium Level 9.1 mg/dl Test 10/04/16 16:20 Bedside Glucose 182 mg/dl Assessment & Plan 80 year old male with severe ischemic cardiomyopathy presents to the ED complaining of chest pain x 5 days, SOB x 2 days. ACUTE ON CHRONIC SYSTOLIC HEART FAILURE -CXR: with mild pulmonary edema and effusions -PM reprogrammed yesterday -continue holding Lasix and spironolactone in setting of acute renal insufficiency -Isosorbide was restarted by [employer] today, however, this does give him headaches , and he has been complaining of this. -defer to outpatient cards appointment to decrease dosage/frequency of this medication as needed -Low sodium, AHA diet -I&Os, Daily standing weights -Cont amio at 200mg PO BID and Toprol was stopped CHEST PAIN - H/O CAD s/p CABG-resolved -serial enzymes negative -EKG A-sensing, V-pacing with HR 117 and QTc 488 -continue Plavix, Statin, ACEI--BB held because of nightmares per cards team ( above) -no further workup necessary at this time PAROXYSMAL AFIB -currently in paced rhythm, but tachy -continue BB, Amiodarone and Eliquis -adjustments made to pacer and amio 10/03 CKD STAGE 3 -Crea 2.4, then 2.6 today with baseline 1.6-1.8 -hold diuretics -Nephro consult -follow PRP in am -avoid nephrotoxic agents as able DM2 -recent A1c 6.6 -Hold po diabetic agents -SSI coverage -BSG AC HS -consistent carb diet HTN -controlled and slightly low -hold lisinopril, sprionolactone and Lasix with renal insuff -monitor in tele HYPOTHYROIDISM -continue Synthroid -check TSH HLD -continue Statin DVT PROPHYLAXIS: Eliquis CODE STATUS: FULL CODE per my discussion with the patient Juani Ojeda DO [facility] Hospitalist Current Inpatient Medications: Current Inpatient Medications Medications (Trade) Dose Ordered Sig/Mireille Route Start Time Stop Time Status Last Admin Dose Admin Acetaminophen (Tylenol Tab) 650 mg Q4H PRN PO 10/02/16 19:15 11/01/16 19:14 10/04/16 10:43 650 MG Ondansetron HCl (Zofran Inj) 4 mg Q6H PRN IV 10/02/16 19:15 11/01/16 19:14 Nitroglycerin 0.4 mg 0.4 mg UD PRN SL 10/02/16 19:15 11/01/16 19:14 Furosemide/Syringe (Lasix Inj/ Syringe) 4 ml @ 4 mls/min BID17 IV 10/03/16 09:00 11/02/16 08:59 Future Hold 10/03/16 09:01 4 MLS/MIN Alprazolam (Xanax Tab) 1 mg BID PRN PO 10/02/16 19:15 11/01/16 19:14 Apixaban (Eliquis Tab) 2.5 mg BID PO 10/02/16 21:00 11/01/16 20:59 10/04/16 08:33 2.5 MG Calcitriol (Rocaltrol Cap) 0.25 mcg QAM PO 10/03/16 09:00 11/02/16 08:59 10/04/16 08:34 0.25 MCG Clopidogrel Bisulfate (plAVix TAB) 75 mg QAM PO 10/03/16 09:00 11/02/16 08:59 10/04/16 08:33 75 MG Isosorbide Dinitrate (Isordil Tab) 10 mg BID@0700,1200 PO 10/02/16 21:00 11/01/16 20:59 Future hold 10/04/16 13:10 10 MG Levothyroxine Sodium (Synthroid Tab) 25 mcg DAILYBB PO 10/03/16 06:00 11/02/16 08:59 10/04/16 05:11 25 MCG Cholecalciferol (Vitamin D Tab) 2,000 inter.unit QPM PO 10/02/16 21:00 11/01/16 20:59 10/03/16 20:13 2,000 INTER.UNIT Pravastatin Sodium (Pravachol Tab) 80 mg QPM PO 10/02/16 21:00 11/01/16 20:59 10/03/16 20:13 80 MG Insulin Aspart (novoLOG ASPART) SLIDING SCALE If C... ACHS SC 10/02/16 21:00 11/01/16 20:59 10/04/16 12:15 3 UNITS Glucose (Glucose 40% Gel) 15-30 GRAMS 15 GRAMS... UD PRN PO 10/02/16 19:30 11/01/16 19:29 Glucose (Glucose Chew Tab) 4-8 Tablets 4 Tabl... UD PRN PO 10/02/16 19:30 11/01/16 19:29 Dextrose (Dextrose 50% 50ML Syringe) 25-50ML OF 50% DW IV FOR... UD PRN IV 10/02/16 19:30 11/01/16 19:29 Glucagon (Glucagon Inj) 1 mg UD PRN SQ 10/02/16 19:30 11/01/16 19:29 Lisinopril (Zestril Tab) 5 mg QPM PO 10/02/16 21:00 11/01/16 20:59 10/03/16 20:14 5 MG Miscellaneous Information (Consult Glycemic Management Pharmacy) 1 ea UD PRN N/A 10/03/16 14:21 11/02/16 14:20 Amiodarone HCl (Cordarone Tab) 200 mg BID PO 10/04/16 21:00 11/03/16 20:59
[2016-10-05 00:22] VITALS: BP 107/68; PULSE 61; TEMP 36.9; O2SAT 92
[2016-10-05 03:52] VITALS: BP 115/73; PULSE 66; TEMP 36.8; O2SAT 91
[2016-10-05] MEDS: LEVOTHYROXINE 25 MCG TAB PO SCH (06:04)
[2016-10-05 06:10] LABS: HEMATOCRIT 40.7 % (42-52); MEAN CELL VOLUME 95.1 fL (80-100); MEAN CORPUSCULAR HEMOGLOBIN 32.5 pg (25-34); MEAN CORPUSCULAR HGB CONC 34.2 g/dl (32-36); MEAN PLATELET VOLUME 9.2 fL (7.4-10.4); PLATELET COUNT 199 K/uL (130-400); RED BLOOD COUNT 4.28 M/uL (4.7-6.1); WHITE BLOOD COUNT 12.53 K/uL (4.8-10.8)
[2016-10-05 06:38] LABS: BUN/CREATININE RATIO 22.2 (10-20); CALCIUM 8.9 mg/dl (8.5-10.1); CREATININE 2.6 mg/dl (0.60-1.40); POTASSIUM 4.7 mmol/L (3.5-5.1)
[2016-10-05 07:48] VITALS: BP 128/80; PULSE 72; TEMP 36.6; O2SAT 90
[2016-10-05] MEDS: ISOSORBIDE DINITRATE 10 MG TAB PO SCH ×2 (07:50→12:08)
--- NOTE | 2016-10-05 08:17 | NEPHROLOGY CONSULTATION ---
DATE OF CONSULTATION: 10/05/2016 ATTENDING OF RECORD: Dr. Ojeda. REASON FOR CONSULTATION: MIREILLE on kidney disease. HISTORY OF PRESENT ILLNESS: This is a 80-year-old male who I had last seen in my office 08/28/2016 for CKD stage 3 with creatinine in the 2s with no proteinuria and no hematuria with right kidney 11.2 cm and the left kidney 11.2 cm with mild cortical thinning. No history of myeloma. No tobacco history. The patient with CKD presumed to be from diabetes and hypertension as well as advanced age. The patient diabetes for over 10 years, hypertension for over 20 years, and does not have diabetic retinopathy. Does have significant heart disease with an IA about 20 years ago with defibrillator for over 10 years, bypass x3 about 20 years ago, does have significant history of spinal stenosis with 2 back surgeries in the past. The patient presented suddenly during this presentation with acute shortness of breath. The patient has had intermittent chest pain which he states that Dr. Morrell who did his surgery in the past thought it was associated with the wires. The patient stated to me that he was walking to the garage and developed acute shortness of breath and chest pain but is feeling much better. Latest echo showed EF of less than 15% and was given IV Lasix and a pacemaker was interrogated. Cardiology was consulted for the chest pain. Cardiology stated that the patient has a history of severe ischemic cardiomyopathy and class 3 congestive heart failure and presented with acute decompensated systolic heart failure in part secondary to poor tolerance of an atrial arrhythmia, pacemaker has been reprogrammed and now has a rate in the 60s-70s, resumed isosorbide, holding the spironolactone and was going to continue the amiodarone. REVIEW OF SYSTEMS: Positive intermittent chest pain. Positive shortness of breath which has improved. No fevers or chills. Did have a headache last night but blamed it on not eating. No nausea, vomiting; no diarrhea or constipation; no dysuria. Does have chronic back pain from spinal stenosis. No rash or itching. No blurry vision. All other review of systems otherwise negative. PAST MEDICAL HISTORY: CKD stage III with baseline creatinine in the low 2s, coronary artery disease with CABG, atrial fibrillation with a pacemaker, hypertension, diabetes, spinal stenosis. PAST SURGICAL HISTORY: AICD, CABG, spinal surgery, and tonsillectomy. FAMILY HISTORY: Significant for diabetes. SOCIAL HISTORY: Former smoker, no alcohol, no drugs. He and lives with family. CURRENT MEDICATIONS: Amiodarone 200 mg p.o. b.i.d., calcitriol 0.25 mcg daily, Plavix 75 mg daily, Synthroid 25 mcg daily, Eliquis 2.5 mg p.o. b.i.d., Isordil 10 mg p.o. b.i.d., vitamin D 2000 units daily, Pravachol 80 mg at night, sliding scale insulin. PHYSICAL EXAMINATION: VITAL SIGNS: Temperature 36.8, pulse 66, respiratory rate 18, blood pressure is 115/73, and satting 91% on room air. GENERAL: Awake, alert, oriented x3. EYES: No scleral icterus. ENT: Moist mucous membranes. NECK: Supple. PULMONARY: Clear to auscultation. CARDIAC: Irregularly irregular. ABDOMEN: Bowel sounds positive, soft, nontender. EXTREMITIES: No clubbing, cyanosis or edema. NEUROLOGIC: Nonfocal. DERM: No rash or ulcers noted. LABORATORIES: Sodium was 138, potassium 4.7, chloride is 104, bicarbonate is 24, BUN is 58, creatinine is 2.6, glucose is 161, and calcium 8.9. White count is 12, H\T\H 13 and 40, platelet count 199. INR is 1. IMAGING DATA: Chest x-ray shows mild pulmonary edema and small bilateral pleural effusion, stable moderate cardiomegaly. ASSESSMENT AND PLAN: MIREILLE on Chronic kidney disease with the patient who came in with creatinine 2.4 and has trended up to 2.6. The patient's baseline is 2. Diuretics are currently on hold. The patient was on Lasix 40 mg a day and spironolactone 12.5 mg a day. The patient does have a depressed ejection fraction and concerned if we continue to hold the diuretics that the patient may start to retain fluid. We would like to continue to hold the spironolactone for now and restart the Lasix at half the dose at 20 mg instead of 40 and have him recheck lab work on Saturday. If creatinine is trending down and/or stable, we will increase the Lasix to 40 mg a day and follow lab work and then eventually hopefully restart the spironolactone. Okay from the kidney standpoint for the patient to be discharged. The patient is very anxious to leave, stating that he has a wedding in [place] tomorrow. I did warn him of the fact that he just had significant shortness of breath during this hospitalization requiring appropriate diuresis and that if he develops any more shortness breath or chest pain to go to the local ER in [place]. I appreciate consultation. HAILEY
[2016-10-05] MEDS: APIXABAN 2.5 MG TAB PO SCH (08:31)
[2016-10-05] MEDS: CALCITRIOL 0.25 MCG CAP PO SCH (08:31)
[2016-10-05] MEDS: AMIODARONE 200 MG TAB PO SCH (08:31)
[2016-10-05] MEDS: CLOPIDOGREL BISULFATE 75 MG TAB PO SCH (08:31)
[2016-10-05] MEDS: INSULIN ASPART 100 UNITS/ML 3 ML PEN SC SCH ×2 (08:34→12:10)
[2016-10-05] MEDS ORDERED: FURO-85 PO (10:36)
--- NOTE | 2016-10-05 10:45 | Discharge Instructions ---
Discharge Instructions Admission Reason for Admission: Acute Systolic Chf, Chest Pain Discharge Discharge Diagnosis / Problem: CHF, chest pain Discharge Goals Goal(s): Prevent Disease Progression Activity Recommendations Activity Limitations: resume your previous activity . Instructions / Follow-Up Instructions / Follow-Up Call your Primary Care doctor if any of the following symptoms or problems start or get worse: * Shortness of breath or difficulty breathing * Wake up at night short of breath * Chest pain * Cough * Swelling of your hands, feet, or legs * More fatigued or tired with your normal activity * Palpitations - sudden fast heart beats WEIGHT * Weigh yourself every morning after using the bathroom. * Use the same scale. * Wear the same amount of clothing. * Write your weight down on a chart. * Call your Primary Care doctor if you gain more than 2-3 pounds in 1-2 days. MEDICATIONS * Use this discharge instruction sheet for medication instructions. * Take your medications at the time your doctor ordered. * Do not skip a dose of your medicines. * If you miss a dose of medicine, take it as soon as possible, but DO NOT DOUBLE A DOSE. * Read your medicine information when you get home. * Know all of the side effects of your medicine. If in doubt, ask your pharmacist * Call your Primary Care doctor's office if you have any side effects. * Be sure all of your doctors know what medicine and herbs you take (including cold, flu, and herbal medicine). Take the following with you to your follow-up doctor appointments: * Weight Chart * Medication List * List of questions Do not drink excessive alcohol, beer or wine. ADDITIONAL PROVIDER INSTRUCTIONS: 1. Please take all medications as instructed. 2. Your LASIX has been reduced to 20mg daily until further instructed by your kidney specialist, Dr. Dale, who will notify you after reviewing your bloodwork. 3. You will need to get non-fasting bloodwork taken sometime on Saturday, which will be sent to Dr. Dale's office in [place] where you are seen. 4. As you are travelling out of town this weekend, please remember you are on a reduced dose of diuretic and will need to seek immediate medical attention if you become acutely short of breath, or if your chest pain returns. 5. You were scheduled for a follow-up appointment with PCP, Dr. Cabrera, [place], 1/31 @ 12:50pm. Please bring all paperwork from this hospitalization to that appointment. 6. Please follow-up with your Group Fitness Manager as instructed after adjustments were made to your pacemaker settings. 7. It was a pleasure taking care of you! Call if you have any questions or problems. You can reach a [facility] hospitalist on duty at [facility] 24 hours a day by calling [phone]. Take care of yourself. Juani Ojeda, [facility] Hospitalist Current Hospital Diet Patient's current hospital diet: AHA Diet (Heart Healthy), Low Sodium Diet (2gm Na), Diabetes Type 2 Diet Discharge Diet Recommended Diet: AHA Diet (Heart Healthy), Low Sodium Diet (2gm Na), Diabetes Type 2 Diet Procedures Procedures Performed: Pacemaker adjustment Pending Studies Studies pending at discharge: no Laboratory Results Hemoglobin A1c Test 07/29/16 06:35 Range/Units Estimated Average Glucose 143 mg/dl Hemoglobin A1c 6.6 H 4.5-5.6 % Lipid Panel Test 07/29/16 06:35 Range/Units Triglycerides Level 251 H 0-150 mg/dl Cholesterol Level 146 0-200 mg/dl HDL Cholesterol 48 mg/dl Cholesterol/HDL Ratio 3.0 LDL Cholesterol, Calculated 48 mg/dl Medical Emergencies . Who to Call and When: Call 911 or go to the Emergency Room if: * If at any time you feel your situation is an emergency * You have tightness or pain in your chest that does not go away with rest or Nitroglycerin * You are very short of breath even with rest . Non-Emergent Contact Non-Emergency issues call your: Primary Care Provider . . "Provider Documentation" section prepared by Juani Ojeda. VTE Core Measure Inpt VTE Proph given/why not?: Other Anticoagulation (Eliquis)
--- NOTE | 2016-10-05 11:16 | PROGRESS NOTE ---
DATE: 10/05/2016 The patient seen and examined. Chart, medications, telemetry reviewed. SUBJECTIVE: He feels well, he has been ambulatory, walked in the hallway last night, notes substantial improvement from prehospitalization state. Dyspnea is much, much better. Notes no fevers, chills or productive cough. OBJECTIVE: VITAL SIGNS: Heart rate is 72, blood pressure is 128/80. NECK: Thick. There is no distinct jugular venous distention. LUNGS: Reveal diminished breath sounds but are predominantly clear. CARDIOVASCULAR: Regular. There is no S3 gallop. ABDOMEN: Soft. EXTREMITIES: Without cyanosis or clubbing. There is no peripheral edema. Pacer defibrillator site is without irritation. LABORATORY DATA: Sodium is 138, potassium is 4.7, chloride is 104, bicarb is 24, BUN is 58, creatinine is 2.6, glucose is 161. IMPRESSION: A 80-year-old male admitted with acute decompensated systolic heart failure as a response to poorly tolerated atrial arrhythmias. Defibrillator has been reprogrammed with appropriate heart rate response. Creatinine is stabilized at 2.6. RECOMMENDATIONS: We would recommend patient be discharged on prehospital medications with notable discontinuation of spironolactone. Emphasized CHF instructions in detail with the patient. He is already scheduled with [facility] on October 11. [facility]
[2016-10-05 11:35] VITALS: BP 102/61; PULSE 60; TEMP 36.6; O2SAT 94
--- NOTE | 2016-10-05 13:28 | Pharmacy Progress Note ---
Glycemic: Assessment & Plan Date of Service Oct 05, 2016. Assessment & Plan The patient received 12 units of insulin yesterday, with BSGs ranging from 105 - 220 mg/dL. It appears as though patient's insulin needs are somewhere around 15 units/day. Novolog parameters tightened slightly this morning to provide better glycemic control throughout the day. * Basal insulin: None required at this time * Correctional Insulin: Novolog Correction per scale ACHS Goal Range: Low 100 mg/dL - High 140 mg/dL Correction Factor: 30 mg/dL/unit * Prandial insulin: Per carb ratio of 1 unit per 12 grams CHO consumed Pharmacy will continue to monitor patient daily and write orders per [facility] inpatient glycemic control protocol. Thanks. * Please note that the plan above was derived based on current level of insulin resistance and hospital stress. These recommendations are appropriate for inpatient admission only. Plan of care upon discharge will need to be reassessed to avoid potential outpatient hypo/hyperglycemia.
--- NOTE | 2016-10-12 06:53 | Discharge Summary ---
Discharge Summary Admission Date: Oct 02, 2016 at 19:09 Discharge Date: Oct 05, 2016 Discharge Disposition: Home Principal Diagnosis: Acute on chronic systolic heart failure Severe ischemic cardiomyopathy s/p ICD h/o CAD s/p CABG Paroxysmal Atrial fibrillation Renal insufficiency (acute) in setting of CKD-Stage III Diabetes Mellitus II Hypertension Hyperlipidemia Hypothyroidism Procedures: PM adjustment Vaccinations: None. Consultations: Cardiology, Nephrology Pending Studies/Follow-Up: see instructions below Medication Reconciliation New Medications: Furosemide (Lasix) 20 Mg Tab 20 MG PO DAILY for 30 Days, #30 TAB Take this reduced Lasix dose until contacted by [facility], x. Continued Medications: Acetaminophen (Tylenol) 500 Mg Tab 1000 MG PO BID, TAB Alprazolam (Xanax) 1 Mg Tab 1 MG PO BID PRN for Anxiety, TAB Amiodarone HCl (Amiodarone HCl) 200 Mg Tab 200 MG PO BID, TAB Apixaban (Eliquis) 2.5 Mg Tab 2.5 MG PO BID for 30 Days, #60 TAB 6 Refills Calcitriol (Calcitriol) 0.25 Mcg Cap 0.25 MCG PO QAM Cholecalciferol (Vitamin D3) 2,000 Unit Cap 2000 INTUNIT PO QPM Clopidogrel (Plavix) 75 Mg Tab 75 MG PO QAM, TAB Glimepiride (Amaryl) 1 Mg Tab 1 MG PO QAM, TAB Isosorbide Dinitrate (Isordil) 10 Mg Tab 10 MG PO BID, #90 Levothyroxine Sodium (Levothyroxine Sodium) 25 Mcg Tab 25 MCG PO QAM Lisinopril (Zestril) 10 Mg Tab 5 MG PO QPM, TAB Nitroglycerin (Nitrostat) 0.4 Mg Tab 0.4 MG UT UD PRN for Chest Pain, BTL PLACE ONE TABLET UNDER THE TONGUE EVERY 5 MINUTES FOR UP TO 3 DOSES IF NEEDED FOR CHEST PAIN. Pravastatin Sodium (Pravastatin Sodium) 80 Mg Tab 80 MG PO QPM Discontinued Medications: Furosemide (Lasix) 40 Mg Tab 40 MG PO QAM, TAB Metoprolol Succinate (Metoprolol Succinate ER) 25 Mg Tabcr 12.5 MG PO HS, #16 Spironolactone (Aldactone) 25 Mg Tab 12.5 MG PO QPM, TAB Admission Information HPI (per Admitting provider): Patient seen and examined. 80 year old male with PMHx of CAD s/p CABGx4, Severe systolic CHF EF<15% s/p BIV pacer defibrillator, HN, DM2, PAF on eliquis, PVD, CKD stage 3, Hypothyroidism and other problems listed below presents to the ED complaining of chest pain x 4 days. Patient reports he has had this chest pain off and on for years since he had a CABG in 1990. He states that he was told that the wires were too tight. He states that when he lifts something heavy sometimes this happens. He reports 5 days ago the patient lifted a 5 gallon bucket of corn. He states the neck day the bottom of his sternum was sore and since then he has had constant sternal pain that he describes as squeezing and rates as an 8/10. He reports ice packs help this pain for a short time. 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 He states distances he could usually walk he now needs to stop twice to catch his breath. This is what prompted him to come to the ED. He states he occasionally has pain in the area where the pacemaker is but denies any defibrillator shocks. He denies fevers, chills, dizziness, URI symptoms, palpitations, orthopnea, PND, nausea, vomiting, diarrhea, dysuria, calf pain and edema. He denies weight gain. In the ED patient is mildly tachycardic, Luiza are negative x1 , EKG shows ventricular paced rhythm, CXR shows mild pulmonary edema and effusions. The patient is currently resting comfortably and has not had any pain since arrival. Physical Exam (per Admitting): General Appearance: + pertinent finding (Pleasant WD/WN 80 year old male lying in bed in NAD with at bedside ) Head: normocephalic, atraumatic Eyes: PERRL, EOMI, sclerae normal ENT: hearing grossly normal, pharynx normal Neck: supple, no JVD, trachea midline Respiratory/Chest: chest non-tender, lungs clear, normal breath sounds, no respiratory distress, no accessory muscle use Cardiovascular: no edema, no gallop, no JVD, no murmur, normal peripheral pulses, + tachycardia (low 100s, regular) Abdomen/GI: normal bowel sounds, non tender, soft Back: normal inspection, no muscle spasm Extremities/Musculoskelatal: no calf tenderness, normal capillary refill, no pedal edema Neurologic/Psych: alert, oriented x 3 Skin: normal color, warm/dry, no rash Lymphatic: no adenopathy Hospital Course 80 year old male with severe ischemic cardiomyopathy presents to the ED complaining of chest pain x 5 days, SOB x 2 days. ACUTE ON CHRONIC SYSTOLIC HEART FAILURE -CXR: with mild pulmonary edema and effusions -PM reprogrammed yesterday (as inpatient) -continue holding Lasix and spironolactone in setting of acute renal insufficiency -Isosorbide was restarted by TCHO today, however, this does give him headaches , and he has been complaining of this. -defer to outpatient cards appointment to decrease dosage/frequency of this medication as needed -Low sodium, AHA diet -I&Os, Daily standing weights -Cont amio at 200mg PO BID and Toprol was stopped 2/2 a side effect of nightmares CHEST PAIN - H/O CAD s/p CABG-resolved -serial enzymes negative -EKG A-sensing, V-pacing with HR 117 and QTc 488 -continue Plavix, Statin, ACEI--BB held because of nightmares per cards team ( above) -no further workup necessary at this time per Cardiology team PAROXYSMAL AFIB -currently in paced rhythm, but tachy --improved to the 60s with adjustment and continued amio -continue Amiodarone and Eliquis -adjustments made to pacer and amio 10/03 MIREILLE in CKD STAGE 3 -Crea 2.4, then 2.6 today with baseline 1.6-1.8 -hold diuretics -Nephro consult with recommendations to restart the Lasix at half of his home dose as there was concern that he may start to retain fluid if diuretics were held completely in the setting of his depressed ejection fraction. -Spironolactone was held to be restarted as an outpatient and labwork was ordered for Saturday (discharged on a Saturday) DM2 -recent A1c 6.6 -Hold po diabetic agents -SSI coverage -BSG AC HS -consistent carb diet HTN -controlled and slightly low -hold lisinopril, sprionolactone and Lasix with renal insuff HYPOTHYROIDISM -continue Synthroid -check TSH HLD -continue Statin On day of discharge the patient was asymptomatic, denying chest pain, shortness of breath or any headaches. He was tolerating PO and ambulating at baseline. He was afebrile and hemodynamically stable. He was asking to leave the hospital. He was cleared by both Cardiology and Nephrology to leave. Physical exam was unremarkable. As he was known to be going out of town for a wedding both myself and the Optoelectronic Technician warned him that he was just hospitalized for heart failure, and should he develop any more shortness of breath or chest pain , he would need to seek immediate medical attention. He verbalized understanding with intent to comply if that were the case. He was discharged home with instructions for labwork next week and close PCP follow-up. Total time spent on discharge = 60 minutes This includes examination of the patient, discharge planning, medication reconciliation, and communication with other providers. Discharge Instructions Discharge Instructions Admission Reason for Admission: Acute Systolic Chf, Chest Pain Discharge Discharge Diagnosis / Problem: CHF, chest pain Discharge Goals Goal(s): Prevent Disease Progression Activity Recommendations Activity Limitations: resume your previous activity . Instructions / Follow-Up Instructions / Follow-Up Call your Primary Care doctor if any of the following symptoms or problems start or get worse: * Shortness of breath or difficulty breathing * Wake up at night short of breath * Chest pain * Cough * Swelling of your hands, feet, or legs * More fatigued or tired with your normal activity * Palpitations - sudden fast heart beats WEIGHT * Weigh yourself every morning after using the bathroom. * Use the same scale. * Wear the same amount of clothing. * Write your weight down on a chart. * Call your Primary Care doctor if you gain more than 2-3 pounds in 1-2 days. MEDICATIONS * Use this discharge instruction sheet for medication instructions. * Take your medications at the time your doctor ordered. * Do not skip a dose of your medicines. * If you miss a dose of medicine, take it as soon as possible, but DO NOT DOUBLE A DOSE. * Read your medicine information when you get home. * Know all of the side effects of your medicine. If in doubt, ask your pharmacist * Call your Primary Care doctor's office if you have any side effects. * Be sure all of your doctors know what medicine and herbs you take (including cold, flu, and herbal medicine). Take the following with you to your follow-up doctor appointments: * Weight Chart * Medication List * List of questions Do not drink excessive alcohol, beer or wine. ADDITIONAL PROVIDER INSTRUCTIONS: 1. Please take all medications as instructed. 2. Your LASIX has been reduced to 20mg daily until further instructed by your kidney specialist, Dr. Dale, who will notify you after reviewing your bloodwork. 3. You will need to get non-fasting bloodwork taken sometime on Saturday, which will be sent to Dr. Dale's office in [place] where you are seen. 4. As you are travelling out of town this weekend, please remember you are on a reduced dose of diuretic and will need to seek immediate medical attention if you become acutely short of breath, or if your chest pain returns. 5. You were scheduled for a follow-up appointment with PCP, Dr. Cabrera, for , 10/09 @ 12:50pm. Please bring all paperwork from this hospitalization to that appointment. 6. Please follow-up with your Speed Belt Sander Tender as instructed after adjustments were made to your pacemaker settings. 7. It was a pleasure taking care of you! Call if you have any questions or problems. You can reach a [facility] Hospitalist on duty at [facility] 24 hours a day by calling [phone]. Take care of yourself. Juani Ojeda DO [facility] Additional Copies To Momo Dale DO; Sobeida Cabrera M.D.
[2016-11-11] MEDS ORDERED: LSX40 PO (12:09)
[2016-11-11] MEDS ORDERED: MCRK20 PO (12:09)
[2016-11-11] MEDS ORDERED: SPR25 PO (12:09)
[2016-12-01] MEDS ORDERED: LSX40 PO (09:39)
== END 2016-10-05 13:15 | disposition home or self-care (01) | DRG 291 ==
LOC: ENRESERVTM → ENRESERVDT → C.EDB 17:13 → C.2T 19:09
PROVIDERS: ADMIT Hospitalist; ATTEND Hospitalist
DX: I13.0 Hypertensive heart and chronic kidney disease with heart failure and stage 1 through stage 4 chronic kidney disease, or unspecified chronic kidney disease (principal); I50.23 Acute on chronic systolic (congestive) heart failure; N17.9 Acute kidney failure, unspecified; N18.3 Chronic kidney disease, stage 3 (moderate); I25.5 Ischemic cardiomyopathy; E11.9 Type 2 diabetes mellitus without complications; I25.10 Atherosclerotic heart disease of native coronary artery without angina pectoris; E78.5 Hyperlipidemia, unspecified; I73.9 Peripheral vascular disease, unspecified; M48.06 Spinal stenosis, lumbar region; E03.9 Hypothyroidism, unspecified; I48.0 Paroxysmal atrial fibrillation; I25.2 Old myocardial infarction; Z95.1 Presence of aortocoronary bypass graft; Z95.810 Presence of automatic (implantable) cardiac defibrillator; Z87.891 Personal history of nicotine dependence; Z83.3 Family history of diabetes mellitus; Z80.1 Family history of malignant neoplasm of trachea, bronchus and lung

== ENCOUNTER 2016-11-08 05:10 | Inpatient (IN) | payer OTHER ==
[~2016-11-08] VITALS: Ht 175.3 cm; Wt 92.4 kg
[~2016-11-08 05:10] MED LIST changes: -ASPI81TA28 PO; -ISORDIL PO; +ISOS10TA2 PO; -LSX/40 PO; -OXYC-57 PO; -SPIR25TA PO
[2016-11-08] MEDS ORDERED: APIX1TAB PO (05:55)
[2016-11-08] MEDS ORDERED: FRS/40 PO (05:58)
[2016-11-08 06:09] LABS: BUN/CREATININE RATIO 13.3 (10-20); CALCIUM 8.8 mg/dl (8.5-10.1); CREATININE 1.8 mg/dl (0.60-1.40); POTASSIUM 3.4 mmol/L (3.5-5.1)
[2016-11-08 06:15] LABS: ALB/GLOB RATIO 0.9 (0.9-2); CKMB/CK RATIO 1.7 (0-3.0)
--- NOTE | 2016-11-08 06:29 | DIAGNOSTIC IMAGING REPORT ---
CHEST ONE VIEW PORTABLE CLINICAL HISTORY: cough, sob COMPARISON STUDY: 10/02/2016 FINDINGS: There are postsurgical changes of midline sternotomy. The heart remains enlarged. There is a left subclavian pacer/defibrillator present. There is continued radiographic evidence of congestive failure with bilateral pleural effusions. There is no lobar consolidation.[ IMPRESSION: Stable cardiomegaly congestive failure and small bilateral pleural effusions. Electronically signed by: Abdi Cook M.D. 11/08/2016 6:27 AM Dictated Date/Time: 11/08/2016 6:27 AM
[2016-11-08 06:41] LABS: BASO % 0.2 %; BASO ABS # 0.02 K/uL (0-0.2); COMPLETE YES; EOS % 0.8 %; HEMATOCRIT 39.7 % (42-52); IG% 0.8 %; LYMPH % 4.1 %; LYMPH ABS # 0.49 K/uL (1.2-3.4); MEAN CELL VOLUME 95.2 fL (80-100); MEAN CORPUSCULAR HEMOGLOBIN 32.1 pg (25-34); MEAN CORPUSCULAR HGB CONC 33.8 g/dl (32-36); MEAN PLATELET VOLUME 8.3 fL (7.4-10.4); MONO % 9.2 %; NEUT % 84.9 %; PLATELET COUNT 204 K/uL (130-400); RED BLOOD COUNT 4.17 M/uL (4.7-6.1); WHITE BLOOD COUNT 11.93 K/uL (4.8-10.8)
[2016-11-08] MEDS ORDERED: FUROSEMIDE 40 MG/4 ML VIAL IV STA (07:21)
--- NOTE | 2016-11-08 07:34 | EMERGENCY ROOM VISIT NOTE ---
ED Visit Note First contact with patient: 05:23 I saw this patient with Raissa Bernabe PA-C. I agree with her decision making and treatment plan.
--- NOTE | 2016-11-08 07:39 | EMERGENCY ROOM VISIT NOTE ---
History First contact with patient: 05:23 Chief Complaint: RESPIRATORY PROBLEMS Stated Complaint: HARD TO BREATHE Nursing Triage Summary: Pt has had shortness of breath and cough for past week. History of Present Illness The patient is a 80 year old male who presents to the Emergency Room with complaints of trouble breathing for the past one week. The patient states that he has had a cough which is productive of greenish phlegm as well as shortness of breath over the past week. He states that when he is up getting dressed and performing normal daily activities, he has become winded much quicker than usual. He states he has had some pain across the front of his chest with coughing. He reports he has a defibrillator/pacemaker and was told that wires in the box would need to be replaced. His symptoms have gradually worsened over the past few days. He denies any history of asthma or COPD. He does not use oxygen at home. He denies any fevers/chills, abdominal pain, nausea, vomiting, headache or neck pain. He denies any leg pain or swelling. Review of Systems A complete 10-point Review of Systems was discussed with the patient, with pertinent positives and negatives listed in the History of Present Illness. All remaining Review of Systems questions can be considered negative unless otherwise specified. Past Medical/Surgical History Medical Problems: (1) Acute systolic CHF (congestive heart failure) (2) CKD (chronic kidney disease) stage 3, GFR 30-59 ml/min (3) Coronary artery disease (4) Diabetes mellitus, type II (5) Dyslipidemia (6) History of ventricular tachycardia (7) Hypertension (8) PAD (peripheral artery disease) (9) Spinal stenosis of lumbar region (10) Systolic CHF, chronic Surgical Problems: (1) Status post cardiac pacemaker procedure (2) Status post coronary artery bypass grafting (3) Status post lumbar surgery (4) Status post tonsillectomy Family History FH: diabetes mellitus FATHER FH: lung cancer FATHER Social History Smoking Status: Former Smoker Alcohol Use: other Drug Use: none Marital Status: Housing Status: lives with significant other Occupation Status: retired Current/Historical Medications Scheduled Acetaminophen (Tylenol), 1,000 MG PO BID Amiodarone HCl (Amiodarone HCl), 200 MG PO BID Apixaban (Eliquis), 2.5 MG PO BID Calcitriol (Calcitriol), 0.25 MCG PO QAM Cholecalciferol (Vitamin D3), 2,000 INTUNIT PO QPM Clopidogrel (Plavix), 75 MG PO QAM Furosemide (Lasix), 40 MG PO DAILY Glimepiride (Amaryl), 1 MG PO QAM Levothyroxine Sodium (Levothyroxine Sodium), 25 MCG PO QAM Lisinopril (Zestril), 5 MG PO QPM Pravastatin Sodium (Pravastatin Sodium), 80 MG PO QPM Scheduled PRN Alprazolam (Xanax), 1 MG PO BID PRN for Anxiety Nitroglycerin (Nitrostat), 0.4 MG UT UD PRN for Chest Pain Allergies Coded Allergies: Ciprofloxacin (Verified Allergy, Unknown, UNKNOWN, 11/08/16) FROM ENDO PRE-PROCEDURE ORDERSET Physical Exam Vital Signs Date Time Temp Pulse Resp B/P Pulse Ox O2 Delivery O2 Flow Rate FiO2 11/08/16 07:15 61 20 131/61 96 Nasal Cannula 2.0 11/08/16 06:08 60 20 140/75 94 Nasal Cannula 2.0 11/08/16 05:55 Nasal Cannula 2.0 11/08/16 05:37 Nasal Cannula 11/08/16 05:32 69 11/08/16 05:30 88 Room Air 11/08/16 05:16 36.6 81 22 131/75 94 Room Air Physical Exam VITALS: Vitals are noted on the nurse's note and reviewed by myself. Vital signs stable. GENERAL: This is a 80-year-old male, in no acute distress, nondiaphoretic, well- developed well-nourished. SKIN: Capillary reflex less than 2 seconds. HEENT: Normocephalic. PERRLA. EOMI. Nares patent. Mucous membranes moist. Neck is supple without nuchal rigidity. HEART: Regular rate and rhythm without murmurs gallops or rubs. LUNGS: Lungs sounds decreased in bilateral bases. No retractions or accessory muscle use. ABDOMEN: Positive bowel sounds x 4. Soft, nontender to palpation. NEURO: Patient was alert and oriented to person place and time. Medical Decision & Procedures ER Provider Diagnostic Interpretation: CHEST ONE VIEW PORTABLE FINDINGS: There are postsurgical changes of midline sternotomy. The heart remains enlarged. There is a left subclavian pacer/defibrillator present. There is continued radiographic evidence of congestive failure with bilateral pleural effusions. There is no lobar consolidation.[ IMPRESSION: Stable cardiomegaly congestive failure and small bilateral pleural effusions. Laboratory Results Test 11/08/16 05:40 11/08/16 05:52 Nucleated RBC Absolute Count (auto) 0.00 K/uL (0-0) Nucleated Red Blood Cells % 0.0 % Total Bilirubin 0.5 mg/dl (0.2-1) Aspartate Amino Transf (AST/SGOT) 15 U/L (15-37) Alanine Aminotransferase (ALT/SGPT) 19 U/L (12-78) Alkaline Phosphatase 70 U/L (45-117) Pro-B-Type Natriuretic Peptide 5923 pg/ml (0-1800) Total Protein 6.6 gm/dl (6.4-8.2) Albumin 3.2 gm/dl (3.4-5.0) Globulin 3.4 gm/dl (2.5-4.0) Albumin/Globulin Ratio 0.9 (0.9-2) Influenza Type A Antigen Neg for Influ A (NEG) Influenza Type B Antigen Neg for Influ B (NEG) Medications Administered Medications (Trade) Dose Ordered Sig/Mireille Route Start Time Stop Time Status Last Admin Dose Admin Furosemide (Lasix Inj) 40 mg NOW STAT IV 11/08/16 07:21 11/08/16 07:22 DC 11/08/16 07:36 40 MG Acetaminophen (Tylenol Tab) 650 mg Q4H PRN PO 11/08/16 08:45 12/08/16 08:44 11/10/16 01:35 650 MG Alprazolam (Xanax Tab) 1 mg BID PRN PO 11/08/16 08:45 12/08/16 08:44 11/10/16 01:35 1 MG ECG Rate (beats per minute): 61 Rhythm: other (paced rhythm) Findings: no acute ischemic change Medical Decision Differential diagnosis includes pneumonia, influenza, CHF exacerbation, COPD exacerbation, metabolic abnormality, pulmonary embolism, among others. The patient was evaluated as above. Labs were drawn and IV access obtained. He was placed on the cardiac cath rn. The patient is a 80-year-old male who presents complaining of shortness of breath. His O2 saturations did drop to 87% on room air, which is unusual for the patient. He was placed on 2 liters of oxygen. Chest X-ray showed evidence of CHF. BNP was significantly elevated. Labs were otherwise unremarkable. Decision was made to admit the patient and case was discussed with the hospitalist. The patient was independently evaluated by Dr. Thompson, ED attending physician, who agreed with my assessment and treatment plan. Impression Primary Impression: CHF exacerbation Departure Information Referrals Sobeida Cabrera M.D. (PCP) Patient Instructions My [facility] Problem Qualifiers Primary Impression: CHF exacerbation Congestive heart failure type: systolic Qualified Codes: I50.23 - Acute on chronic systolic (congestive) heart failure
[2016-11-08] MEDS ORDERED: ALUMINUM/MAGNESIUM/SIMETH (MAALOX MAX) 30 ML UDC PO PRN (08:45)
[2016-11-08] MEDS ORDERED: NITROGLYCERIN 0.4 MG SL PER TAB CHARGE UT PRN (08:45)
[2016-11-08] MEDS ORDERED: NITROGLYCERIN 0.4 MG SL PER TAB CHARGE SL PRN (08:45)
[2016-11-08] MEDS ORDERED: MAGNESIUM HYDROXIDE SUSP 30 ML UDC PO PRN (08:45)
[2016-11-08] MEDS ORDERED: ALPRAZOLAM 0.5 MG TAB PO PRN (08:45)
[2016-11-08] MEDS ORDERED: ONDANSETRON INJ 2 MG/ML 2 ML VIAL IV PRN (08:45)
[2016-11-08] MEDS ORDERED: GLUCOSE 10 TABS/TUBE PO PRN (09:15)
[2016-11-08] MEDS ORDERED: GLUCOSE 40% GEL 15 GM TUBE PO PRN (09:15)
[2016-11-08] MEDS ORDERED: GLUCAGON FOR INJ 1 MG VIAL SQ PRN (09:15)
[2016-11-08] MEDS ORDERED: DEXTROSE 50% 50 ML SYR IV PRN (09:15)
--- NOTE | 2016-11-08 09:39 | HISTORY & PHYSICAL EXAMINATION ---
DATE OF ADMISSION: 11/08/2016 CHIEF COMPLAINT: Shortness of breath. HISTORY OF PRESENT ILLNESS: This is a 80-year-old male with past medical history significant for chronic systolic CHF with EF of around 15%, status post biventricular defibrillator, history of CAD status post CABG, history of diabetes, hypertension, paroxysmal atrial fibrillation on Eliquis, peripheral vascular disease, chronic kidney disease stage III, hypothyroidism, diabetes, history of ventricular tachycardia presents with shortness of breath. The patient says for about last 1 week he is progressively getting short of breath which is worsening. In the last 2 days even getting up and dressing is making short of breath, has orthopnea. Not much swelling in the legs, has some cough but denies any fevers, chills, no dizziness, no blurred vision, no nausea, no vomiting, no abdominal pain, no diarrhea or constipation. Normal bladder movements. Appetite is not that great. He also says that his pacemaker battery life is low and also some of his pacer wires are not working as per him. Currently patient was hypoxic on room air when he came to the ER, saturating 88% on room air, on 2 liters nasal cannula saturating in mid 90s. ALLERGIES: CIPROFLOXACIN. PAST MEDICAL HISTORY: As mentioned above. PAST SURGICAL HISTORY: CABG in 1990, femoral popliteal artery revascularization with arthrectomy, status post biventricular pacemaker and defibrillator, tonsillectomy and adenoidectomy. MEDICATIONS: The patient is on amiodarone 200 mg p.o. b.i.d., Lasix 40 mg p.o. daily, Plavix 75 mg p.o. daily, glimepiride 1 mg p.o. daily, pravastatin 80 mg p.o. daily, lisinopril 5 mg p.o. daily, Eliquis 2.5 mg p.o. b.i.d., Xanax 1 mg p.o. q. 12 hours p.r.n., levothyroxine 25 mcg p.o. daily, calcitriol 0.25 1 capsule p.o. daily, Nitrostat 0.4 mg sublingual p.r.n., vitamin D 2000 units p.o. daily, Tylenol Extra-Strength 500 mg 1-2 tablets every 4-6 hours p.r.n. FAMILY HISTORY: Significant for father from lung cancer at age 75. Mother at age 76, had abdominal aortic aneurysm. Sister has breast cancer. SOCIAL HISTORY: . Former smoker, quit in . Smoked 2 packs a day for 15 years. . Quit alcohol in 1990. No drug use. REVIEW OF SYMPTOMS: As per HPI. Rest of review of systems negative. PHYSICAL EXAMINATION: GENERAL: The patient of moderate build, not in distress. VITAL SIGNS: Temperature 36.6, pulse 61, respiratory rate 20, blood pressure 131/61, oxygen 98% on room air and 96% on 2 liters. HEAD, EYES, EARS, NOSE, AND THROAT: No pallor, no icterus. Pupils equal, round, and reactive to light. NECK: No JVD, no neck masses, no carotid bruits. CARDIOVASCULAR: S1, S2 heard, regular rate and rhythm, no murmur, no gallop. RESPIRATORY SYSTEM: Normal AP diameter. No accessory muscle use. No wheezing, bibasilar crackles present. ABDOMEN: Soft, bowel sounds present. Nontender. No distention. CENTRAL NERVOUS SYSTEM: Cranial nerves II-XII grossly intact. Nonfocal. EXTREMITIES: Trace pedal edema present, no erythema seen. LABORATORIES: WBC 11.9, hemoglobin 13.4, hematocrit 39.7, platelets 204. sodium 145, potassium 3.4, chloride 107, CO2 27, BUN 34, creatinine 1.8, serum glucose 167, calcium 8.8, total bilirubin 0.5, AST 15, ALT 19, alkaline phosphatase 70, total creatinine kinase 86, troponin I less than 0.02. BNP 5900, influenza negative. Chest x-ray shows congestive failure and small bilateral pleural effusions. ASSESSMENT AND PLAN: This is a 80-year-old male who presents with shortness of breath. 1. Shortness of breath, hypoxia on room air, acute systolic congestive heart failure exacerbation, baseline EF around 15%, status post biventricular pacemaker. Last time in the hospital his Lasix was cut back from 40 to 20 secondary to renal failure and was placed back on 40 mg daily as an outpatient, but since about a week the patient is progressively getting short of breath and chest x-ray consistent with CHF exacerbation. We will place him on IV Lasix 40 twice daily and daily I's and O's and daily weights. Consult cardiology for further recommendation. The patient also has biventricular pacemaker and defibrillator implantation. As per the patient's , the battery is low and also some of the pacemaker wires are not working so we will do the pacemaker interrogation and further recommendations as per cardiology. 2. History of paroxysmal atrial fibrillation, rate controlled with amiodarone. Dose of amiodarone as per cardiology and is on Eliquis. 3. Diabetes. We will hold the glipizide. Place him on insulin sliding scale. Monitor blood sugars. 4. History of coronary artery disease status post coronary artery bypass graft. Continue his home medications of pravastatin, Plavix and nitrates p.r.n. His Toprol and Isordil on hold for side effects. 5. Hypothyroidism. Continue Synthroid. 6. Hyperlipidemia. Continue statin. 7. Hypertension. Continue lisinopril. 8. Chronic kidney disease stage III, baseline creatinine 1.8. We will monitor kidney function while on IV Lasix. If worsens, we will consult nephrology. 9. Deep venous thrombosis prophylaxis. On Eliquis. DISPOSITION: Admit to tele floor. PT and OT and social service help with discharge planning. LEVEL 1 FULL CODE only if the chance of recovery. MTDD
[2016-11-08 10:38] VITALS: BP 116/62; PULSE 60; TEMP 36.7; O2SAT 93; Ht 175.3 cm; Wt 92.4 kg
[2016-11-08] MEDS ORDERED: POTASSIUM CHLORIDE 20 MEQ TABCR PO ONE (10:47)
[2016-11-08] MEDS: APIXABAN 2.5 MG TAB PO SCH ×2 (12:27→20:55)
[2016-11-08] MEDS: AMIODARONE 200 MG TAB PO SCH ×2 (12:27→20:55)
[2016-11-08] MEDS: CALCITRIOL 0.25 MCG CAP PO SCH (12:28)
[2016-11-08] MEDS: LEVOTHYROXINE 25 MCG TAB PO SCH (12:28)
[2016-11-08] MEDS: CLOPIDOGREL BISULFATE 75 MG TAB PO SCH (12:28)
[2016-11-08] MEDS: INSULIN ASPART 100 UNITS/ML 3 ML PEN SC SCH ×3 (12:58→20:58)
--- NOTE | 2016-11-08 13:37 | Cardiology Consultation ---
Cardiology Consultation Date of Service Nov 08, 2016. (Neha Londono, CLAIR) Cardiology Consultation History of Present Illness: Ernst Cortez is a complex 80 year old male with significant past medical history for ischemic cardiomyopathy LVEF < 15%, chronic systolic HF, remote CABG, paroxysmal atrial fib/flutter on chronic anticoagulation, BiVICD in place with elevated lead thresholds causing depleted battery, currently at 5 months, significant peripheral vascular disease. He underwent nuclear stress testing last yaer in 11/2015 demonstrating old anterior, apical and anteroseptal and distal inferior infarct without sicklemia. Patient was Admitted to [facility] in Sep 2016 with tachypalpitations, chest pain, acute decompensated heart failure. Oral amiodarone increased. Toprol XL discontinued secondary to vivid dreams. Device reprogrammed due to atrial tach. He was given two doses of 40 mg IV furosemide; acute on chronic renal dysfunction observed. Furosemide decreased to 20 mg/day on discharge. Spironolactone held. He stopped secondary to lightheadedness and headaches. At cardio f/u, due to symptoms of acute CHF, furosemide was subsequently increased back to 40 mg daily. F/U appt volume status appeared improved/back to baseline. he was down 3 lbs without overt symptoms of volume overload. Patient reports over the last week worsening of his shortness of breath associated with cough and sputum production. He still PCP yesterday and was diagnosed with acute bronchitis and was given a prescription for an antibiotic. He started the antibiotic yesterday. However in the middle of the night the patient developed acute worsening of his shortness of breath resulting in transfer to the ER. Chest x-ray revealed small bilateral pleural effusions consistent with pulmonary vascular congestion similar to a chest x-ray in September,. he was mildly hypoxic on room air improved with supplemental O2. EKG demonstrated AV sequential pacing. His WBC is mildly elevated on admission. BNP elevated. renal dysfunction was stable. He was started on furosemide 40 mg IV twice daily. Pacemaker interrogation was completed this morning due to depleting battery and lead malfunction. rate response was adjusted to hopefully 80 and dyspnea. It appeared the patient was in persistent atrial tach with an atrial rate of 117 and a ventricular rate of 60. at time of consult patient is resting in bed comfortably. He states his shortness of breath has improved since admission. He notes mild substernal chest pressure but states this is not a new symptom for him. Chronic class II- III angina. Cardiac enxyames negative. No radiation of his discomfort. No sense of palpitations or tachy palpitations. Dizziness has resolved since stopping isosorbide last month. According to weight scales he has gained approx 8 lbs since discharge, but patient denies weight gain at home. He denies LE edema, orthopnea, PND. He notes abdominal fullness. No fever or chills. Review of Systems: See HPI for pertinent positives. All other 10 point review of systems is negative. Problem List: 1.Longstanding severe ischemic cardiomyopathy 2.Remote coronary bypass grafting x 4 in 1990 following myocardial infarction 3.Severe left ventricular systolic dysfunction with NYHA Class III+ congestive heart failure 4.Status post single chamber pacer defibrillator with upgrade to a BiV pacer defibrillator in 07/18 (Stroho device). Device with high RV/LV lead thresholds, resultant premature battery depletion. 5.Paroxysmal atrial fibrillation and flutter. 6.History of ventricular tachycardia. 7.Peripheral vascular disease status post percutaneous intervention of the left lower extremity in 2006, 05/2014, and 06/2016 percutaneous intervention, mechanical arthrectomy and aspiration thrombectomy of the left common femoral artery and 8.superficial femoral artery and left popliteal artery via right femoral access. 9.Status post lumbar spinal intervention times two, last by Dr. Reyna in May 2012 with multiple postoperative complications including delirium, SBO /ileus, and acute on chronic renal dysfunction. 10.Chronic renal insufficiency 11.Type 2 diabetes mellitus 12.Dyslipidemia. Additional Past Medical History: Cholelithiasis. Type II diabetes mellitus and lumbar spinal stenosis. Diverticulosis. Anxiety. Past Surgical History: Notable for T/A, bypass surgery, pacer & defibrillator implants, and lumbar spinal surgery x 2. Family History: Father with lung cancer at 75. Mother with what sounds like a ruptured AAA at 76. One sister with breast cancer. Social History: Prior smoker having quit in 1990 at the time of the [place]. He smoked up to 1 ppd x 10 years. Quit drinking alcohol in 1990. No illegal drug use. Retired from [employer]. . Five children without known CAD. Review of patient's allergies indicates: Ciprofloxacin Current Outpatient Prescriptions Reported Home Medications Medications Dose Route/Sig Max Daily Dose Days Date Category Dose Instructions Lasix (Furosemide) 40 Mg Tab 40 Mg PO DAILY 11/08/16 Reported Eliquis (Apixaban) 2.5 Mg Tab 2.5 Mg PO BID 11/08/16 Reported Amiodarone HCl 200 Mg Tab 200 Mg PO BID 10/02/16 Reported Xanax (Alprazolam) 1 Mg Tab 1 Mg PO BID PRN 10/31/15 Reported Vitamin D3 (Cholecalciferol) 2,000 Unit Cap 2,000 Intunit PO QPM 11/02/14 Reported Levothyroxine Sodium 25 Mcg Tab 25 Mcg PO QAM 11/02/14 Reported Plavix (Clopidogrel Bisulfate) 75 Mg Tab 75 Mg PO QAM 11/02/14 Reported Tylenol (Acetaminophen) 500 Mg Tab 1,000 Mg PO BID 11/02/14 Reported Nitrostat (Nitroglycerin) 0.4 Mg Tab 0.4 Mg UT UD PRN 04/05/[address] ONE TABLET UNDER THE TONGUE EVERY 5 MINUTES FOR UP TO 3 DOSES IF NEEDED FOR CHEST PAIN. Pravastatin Sodium 80 Mg Tab 80 Mg PO QPM 04/05/14 Reported Calcitriol 0.25 Mcg Cap 0.25 Mcg PO QAM 03/25/14 Reported Amaryl (Glimepiride) 1 Mg Tab 1 Mg PO QAM 05/19/12 Reported Zestril (Lisinopril) 10 Mg Tab 5 Mg PO QPM 04/25/12 Reported PHYSICAL EXAMINATION: Last 8 Hrs Date Time Temp Pulse Resp B/P Pulse Ox O2 Delivery O2 Flow Rate FiO2 11/08/16 09:35 60 18 120/70 95 11/08/16 09:00 60 24 136/70 96 Nasal Cannula 2.0 11/08/16 08:54 61 11/08/16 07:15 61 20 131/61 96 Nasal Cannula 2.0 11/08/16 06:08 60 20 140/75 94 Nasal Cannula 2.0 11/08/16 05:55 Nasal Cannula 2.0 11/08/16 05:37 Nasal Cannula 11/08/16 05:32 69 11/08/16 05:30 88 Room Air 11/08/16 05:16 36.6 81 22 131/75 94 Room Air General: A&Ox3. NAD. Moderately obese. L HEENT: Normocephalic. Atraumatic. PER. Neck: +JVD at 30-40 degrees. No carotid bruits. Heart: RRR at 60 bpm. Soft systolic murmur. No rub. No gallop. Lungs: Diminished but possible faint rales b/l bases. Abdomen: +BS. Soft. No masses or organomegaly. Extremities: No clubbing, cyanosis, or edema. Pulses: radial=2/4. No lower extremity pulses appreciated. Data: EKG on admission: AV dual-paced rhythm Abnormal ECG When compared with ECG of 04-OCT-2016 06:30, No significant change was found Chest Xray On admission: IMPRESSION: Stable cardiomegaly congestive failure and small bilateral pleural effusions. device interrogation completed today per [employer] rep demonstrates approximate 5 months of battery longevity with persistent atrial tachycardia with atrial rate of 117 beats per minute and ventricular rate of approximately 60 beats per minute with intermittently elevated rates ranging 90-110. Rate activity response was adjusted per [employer] rep to try and 8 with dyspnea on exertion. Chronically elevated RV and LV lead thresholds noted. July 28, 2016 TTE Interpretation Summary ([facility]): The left ventricle is moderately dilated. Left ventricular systolic function is severely reduced. There is severe global hypokinesis of the left ventricle. Apical wall motion abnormality may reflect pacemaker activation. Ejection Fraction = <15%. MPRESSION: Markedly complex 80 year old male 1. Acute on chronic biventricular heart failure with LVEF < 15% -continue supplemetnal O2 -continue IV furosemide today -monitor I+O's -low salt/sodium diet -fluid restriction of 1500 ml 2. Atrial tach, persistent, noted on device interrogation -atrial rate approx 117 -ventricular rate 60 -consider EP eval with cardioversion? On chronic anticoagulation therapy with history of PAF 3. Ischemic cardiomyopathy with BiV ICD in place and elevated RV/LV thresholds. -5 months battery longevity until gen change needed -high risk to replace/add leads 4. CAD - remote CABG -intolerant of past beta blockers - Metoprolol -intolerant of isordil -on lisinopril, ASA, Plavix -chronic angina -non ischemic nuclear stress test 11/2015. Case discussed with Dr. Villalpando. Will follow as hospital course progresses. (Neha Londono, PAVivianeC) Cardiology Attending Physician: Patient seen and examined at the bedside. Resting comfortably and lying flat. Easily awakens to verbal stimuli. Feeling better since admission. Received one dose of IV lasix. ICD interrogation reveals persistent atrial tachycardia with atrial rate of approximately 117 BPM. Patient denies chest discomfort or palpitations. No atrial therapies were delivered because current atrial rate is below detection threshold. PE: VSS, Gen NAD, chronically ill. Heart: Irregular, Normal S1S2, 1/6 DRAKE. Lungs : clear B/L, no rales or wheeze. Abd: soft , NT, ND, normal BS. Ext: trace B/L pedal edema. A/P: Agree with above PA-C history, physical exam, assessment and plan. Continue IV diuretic therapy. Case discussed with lot worker. Will attempt over-drive pacing of atrial tachycardia with [employer] rep in AM to restore sinus rhythm. Continue amiodarone BID. No need for repeat echocardiogram at this time. David Villalpando DO, FACC (Rufus Villalpando, DO)
[2016-11-08 14:50] VITALS: BP 90/54; PULSE 60; TEMP 36.8; O2SAT 90
[2016-11-08 17:22] LABS: CKMB/CK RATIO 2.8 (0-3.0)
[2016-11-08] MEDS: FUROSEMIDE INJ 40 MG in SYRINGE 0 ML IV SCH (17:52)
[2016-11-08 18:02] VITALS: BP 159/88
[2016-11-08] MEDS: PRAVASTATIN SOD 40 MG TAB PO SCH (20:55)
[2016-11-08] MEDS: CHOLECALCIFEROL 1000 INTER.UNIT TAB PO SCH (20:56)
[2016-11-08] MEDS: LISINOPRIL 5 MG TAB PO SCH (20:56)
[2016-11-08 23:13] VITALS: BP 146/78; PULSE 69; TEMP 37.3; O2SAT 92
[2016-11-09] VITALS (8 sets, daily range): BP systolic 112–138; BP diastolic 72–83; PULSE 64–75; TEMP 36.7–37.1; O2SAT 90–95
[2016-11-09 01:04] LABS: CKMB/CK RATIO 1.9 (0-3.0)
[2016-11-09] MEDS: ACETAMINOPHEN 325 MG TAB PO PRN (04:15)
[2016-11-09] MEDS: LEVOTHYROXINE 25 MCG TAB PO SCH (06:22)
[2016-11-09 08:22] LABS: BASO % 0.2 %; BASO ABS # 0.02 K/uL (0-0.2); COMPLETE YES; EOS % 1.5 %; HEMATOCRIT 38.8 % (42-52); IG% 0.6 %; LYMPH ABS # 0.76 K/uL (1.2-3.4); MEAN CELL VOLUME 95.3 fL (80-100); MEAN CORPUSCULAR HEMOGLOBIN 31.9 pg (25-34); MEAN CORPUSCULAR HGB CONC 33.5 g/dl (32-36); MEAN PLATELET VOLUME 8.3 fL (7.4-10.4); MONO % 5.6 %; NEUT % 85.1 %; PLATELET COUNT 209 K/uL (130-400); RED BLOOD COUNT 4.07 M/uL (4.7-6.1); WHITE BLOOD COUNT 10.83 K/uL (4.8-10.8)
[2016-11-09 08:59] LABS: BUN/CREATININE RATIO 15.2 (10-20); CALCIUM 9.2 mg/dl (8.5-10.1); CREATININE 1.6 mg/dl (0.60-1.40); MAGNESIUM 2.3 mg/dl (1.8-2.4); POTASSIUM 3.7 mmol/L (3.5-5.1)
[2016-11-09] MEDS: INSULIN ASPART 100 UNITS/ML 3 ML PEN SC SCH ×4 (09:11→20:59)
[2016-11-09] MEDS: FUROSEMIDE INJ 40 MG in SYRINGE 0 ML IV SCH ×2 (09:11→17:27)
[2016-11-09] MEDS: CALCITRIOL 0.25 MCG CAP PO SCH (09:12)
[2016-11-09] MEDS: CLOPIDOGREL BISULFATE 75 MG TAB PO SCH (09:12)
[2016-11-09] MEDS: APIXABAN 2.5 MG TAB PO SCH ×2 (09:12→20:57)
[2016-11-09] MEDS: AMIODARONE 200 MG TAB PO SCH ×2 (09:12→20:57)
[2016-11-09] MEDS: POTASSIUM CHLORIDE 20 MEQ TABCR PO SCH (09:13)
[2016-11-09 09:25] LABS: ESTIMATED AVERAGE GLUCOSE 146 mg/dl; HA1C FLAG Normal (Normal)
--- NOTE | 2016-11-09 09:33 | Cardiology Follow-Up ---
Subjective General Date of Service: Nov 09, 2016. Chief Complaint: SOB Pt evaluation today including: conversation w/ patient, physical exam, chart review, lab review, review of studies, conversation w/ learning and development consultant, review of inpatient medication list History of Present Illness Patient feeling better today. Less dyspneic with exertion. No SOB at rest. No chest pain. Abdominal bloating improved. Edema improved and at baseline. No orthopnea, PND. Minimal cough. No sputum production Allergies Coded Allergies: Ciprofloxacin (Verified Allergy, Unknown, UNKNOWN, 11/08/16) FROM ENDO PRE-PROCEDURE ORDERSET Social History Smoking Status: Former Smoker Hx Tobacco Use In Past Year?: Yes Hx Alcohol Use - Type And Amou: No Hx Substance Use - Type And Am: No Problem List Medical Problems: (1) CHF exacerbation Status: Acute (2) Chronic kidney disease Status: Acute (3) Exertional chest pain Status: Acute (4) Left sided chest pain Status: Acute Review of Systems Respiratory: + cough, + dyspnea on exertion, + shortness of breath, No dyspnea at rest, No hemoptysis, No sputum, No wheezing Cardiac: No PND, No chest pain, No edema, No orthopnea, No palpitations Physical Exam Vital Signs Last Vital Signs Documentation Date Time Temp Pulse Resp B/P Pulse Ox O2 Delivery O2 Flow Rate FiO2 11/09/16 07:52 37.1 64 16 121/72 94 11/09/16 04:05 Nasal Cannula 2.0 Physical Exam Constitutional: General Apperance: overweight Level of Distress: NAD, chronically ill Psychiatric: Mental Status: active & alert Orientation: to time, to place, to person Head: normocephalic, atraumatic Eyes: Pupils: PERRLA ENMT: normal ENT inspection Neck: supple Lungs: Auscultation: no rales/crackles, deminished air movement, inspiratory wheezing, expiratory wheezing Cardiovascular: Heart Auscultation: RRR, II/ DRAKE Peripheral Pulses: Bruits: none appreciated Dorsalis Pedis Pulse: normal on the left, normal on the right Abdomen: Bowel Sounds: normal Inspection & Palpation: soft, non-distended Extremities: edema (trace ankle edema L>R) Assessment and Plan Assessment and Plan Markedly complex 80 year old male 1. Acute on chronic biventricular heart failure with LVEF < 15% -Improving with good diuresis. -Down 7 kg since admission ? accuracy. Unfortunately I+O's have not been measured. -continue IV furosemide today -monitor I+O's -low salt/sodium diet -fluid restriction of 1500 ml -likely will need higher dose diuretics on discharge (home dose furosemide 40 mg daily) -previously on spironolactone, discontinue due to prior [place]. Consider resuming and reducing potassium 2. Atrial tach, persistent, noted on device interrogation. history of afib/ flutter -atrial rate approx 117 -ventricular rate 60 -EP consult placed and evaluated this AM with medtronic rep. Adjustments made. Unable to convert to NSR. Lower rate increased to 70 bpm See consult. -continue Amiodarone 200 mg BID. continue anticoagulation. Intolerant of past trials of beta blockers. 3. Ischemic cardiomyopathy with BiV ICD in place and elevated RV/LV thresholds. -5 months battery longevity until gen change needed -continue home meds 4. CAD - remote CABG -intolerant of past beta blockers - Metoprolol -intolerant of isordil -on lisinopril, ASA, Plavix -chronic angina -non ischemic nuclear stress test 11/2015 with large scar. Case discussed with Dr. Villalpando. Will follow as hospital course progresses. Cardiology Attending Physician: Patient seen and examined at the bedside. Unable to overdrive pace via ICD this AM. Base rate increased to 70 BPM and LV lead out put increased. Patient denies chest discomfort or palpitations. Overall feels better. ROBERTSON improved. No orthopnea or PND. PE: VSS, Gen NAD, chronically ill. Heart: Irregular, Normal S1S2, 1/6 DRAKE. Lungs : clear B/L, no rales or wheeze. Abd: soft , NT, ND, normal BS. Ext: trace B/L pedal edema. A/P: Agree with above PA-C history, physical exam, assessment and plan. Increase outpatient oral lasix to 40mg BID. Close outpatient heart failure clinic follow up next week in [place] with repeat BMP. Consider resuming aldactone pending review of repeat BMP. David Villalpando DO, [facility] Laboratory Results Last 24 Hours Test 11/08/16 11:38 11/08/16 16:25 11/08/16 16:51 11/08/16 20:20 Bedside Glucose 145 mg/dl 113 mg/dl 179 mg/dl Total Creatine Kinase 88 U/L Creatine Kinase MB 2.5 ng/ml Creatine Kinase MB Ratio 2.8 Troponin I 0.026 ng/ml Test 11/09/16 00:30 11/09/16 07:17 11/09/16 08:01 Total Creatine Kinase 86 U/L Creatine Kinase MB 1.6 ng/ml Creatine Kinase MB Ratio 1.9 Troponin I 0.024 ng/ml Bedside Glucose 145 mg/dl White Blood Count 10.83 K/uL Red Blood Count 4.07 M/uL Hemoglobin 13.0 g/dL Hematocrit 38.8 % Mean Corpuscular Volume 95.3 fL Mean Corpuscular Hemoglobin 31.9 pg Mean Corpuscular Hemoglobin Concent 33.5 g/dl Platelet Count 209 K/uL Mean Platelet Volume 8.3 fL Neutrophils (%) (Auto) 85.1 % Lymphocytes (%) (Auto) 7.0 % Monocytes (%) (Auto) 5.6 % Eosinophils (%) (Auto) 1.5 % Basophils (%) (Auto) 0.2 % Neutrophils # (Auto) 9.21 K/uL Lymphocytes # (Auto) 0.76 K/uL Monocytes # (Auto) 0.61 K/uL Eosinophils # (Auto) 0.16 K/uL Basophils # (Auto) 0.02 K/uL RDW Standard Deviation 47.8 fL RDW Coefficient of Variation 13.7 % Immature Granulocyte % (Auto) 0.6 % Immature Granulocyte # (Auto) 0.07 K/uL Sodium Level 143 mmol/L Potassium Level 3.7 mmol/L Chloride Level 106 mmol/L Carbon Dioxide Level 27 mmol/L Anion Gap 10.0 mmol/L Blood Urea Nitrogen 24 mg/dl Creatinine 1.60 mg/dl Est Creatinine Clear Calc Drug Dose 42.3 ml/min Estimated GFR () 46.8 Estimated GFR (Non- 40.4 BUN/Creatinine Ratio 15.2 Random Glucose 133 mg/dl Calcium Level 9.2 mg/dl Magnesium Level 2.3 mg/dl
--- NOTE | 2016-11-09 14:52 | CARDIOLOGY CONSULTATION ---
DATE OF CONSULTATION: 11/09/2016 REFERRING PHYSICIAN: Dr. Villalpando. REASON FOR CONSULTATION: Persistent atrial tachycardia BiV defibrillator not functioning right. HISTORY OF PRESENT ILLNESS: This is a 80-year-old gentleman who we know well from our office. He has a significant past medical history for ischemic cardiomyopathy with an ejection fraction about 5%, chronic systolic heart failure, [place] Heart Association Class 3, remote CABG, biventricular ICD placed with elevated RV and LV thresholds causing significant quick early battery depletion, peripheral vascular disease, paroxysmal atrial fibrillation flutter, on Eliquis as well as recently started on amiodarone. He was admitted to the [facility] secondary to acute heart failure. He was found to be also in persistent atrial tachycardia. Fortunately though he is no longer tracking it as he has reprogrammed his defibrillator back in October to DDIR so he is no longer tracking the atrial tach, which is at an atrial rate of 117 beats per minute. He has been successfully diuresed and is almost ready for discharge; however electrophysiology was consulted due to thoughts about maybe if we can get him out of this atrial tachycardia. PAST MEDICAL AND SURGICAL HISTORY: Ischemic cardiomyopathy, ejection fraction less than 5%; coronary artery disease, history of CABG in 1990, chronic systolic congestive heart failure, [place] Heart Association Class 3-4; biventricular pacemaker initially implanted in July 2009 with elevated RV and LV thresholds recent gen change about 2 years ago. Paroxysmal atrial flutter, atrial fib on Eliquis. History of ventricular tachycardia. Peripheral vascular disease, history of PCI to the left lower extremity in 2006, 2013 and 2015. Spinal lumbar interventions in May 2012, chronic kidney disease, type 2 diabetes, hyperlipidemia, also had postoperative complications from the spinal intervention, delirium, small-bowel obstruction due to an ileus and acute on chronic renal dysfunction, cholelithiasis, diverticulosis and anxiety. FAMILY HISTORY: Father of lung cancer at 75. Mother due to AAA rupture in 1975. He has 1 sister with breast cancer. SOCIAL HISTORY: Prior tobacco use, quit in 1990. Alcohol use, quit in 1990. No illegal drug use. ALLERGIES: CIPRO. OUTPATIENT MEDICATIONS: Include Lasix, Eliquis, amiodarone, Xanax, vitamin D3, Synthroid, Plavix, Tylenol, pravastatin, calcium, glyburide and lisinopril. REVIEW OF SYSTEMS: All other 10-point review of systems were reviewed and are essentially negative. See HPI for pertinent positives, which include fatigue, shortness of breath, lower extremity swelling. No chest pain, lightheadedness or dizziness. PHYSICAL EXAMINATION: VITAL SIGNS: Temperature 37.1 degrees Celsius, heart rate 64, respirations 16, blood pressure 121/72, oxygen saturation 94% on 2 liters nasal cannula. On telemetry, he is ventricular pacing, but there is intermittent BiV capture and RV only capture. GENERAL: Awake, alert and oriented x3 in no acute distress, lying on the bed comfortably. HEENT: Normocephalic, atraumatic. Extraocular motion intact. Sclerae are nonicteric. Mucous membranes moist. NECK: Supple, no JVD appreciated. CARDIOVASCULAR: On telemetry, he is paced. PULMONARY: No acute respiratory distress upon appearance, no using secondary respiratory muscles. ABDOMEN: Obese. EXTREMITIES: No edema. SKIN: Intact. PERTINENT TESTING: Biventricular ICD interrogation done today performed by me along with the local rep and interpreted independently by me. The patient has a [employer] XT ASSIST[employer] SCIENTIST-D [employer] BiV ICD, which was implanted in March 2015. His RV lead is from 2004 and his LV and atrial lead are from 2008. On presenting rhythm, he was in atrial tachycardia with the atrial rate at 510 milliseconds, which is about 117 beats per minute and ventricular pacing with some fusion complexes coming through. His base rate is 60, upper tracking rate is 120. He is programmed DDIR. With lead testing today we tested the LV lead and found that he is with 6 volts and 1.5 milliseconds threshold, which is right where it is programmed at, so I think there is some undersensing failure to LV capture going on as well. What I initially did was try to burst pace the atrium at a faster rate than his atrial tach to see if we could break it; however, I was not able to do this after multiple attempts at 480, 495 and 500 milliseconds. We even tried doing ramp and burst giving extra stimuli and there was no success in breaking his atrial tachycardia. I did reprogram his lower rate from 60-70 which allowed for the less fusion and more ventricular pacing and then we reprogrammed his LV output 8 and 1.2 milliseconds as he was having intermittent LV capture and this allowed for a better LV BiV pacing. LABORATORY STUDIES: Hematology, WBC is 10.8, hemoglobin 13, hematocrit 38.8, platelets 209. Chemistry with sodium 143, potassium 3.7, chloride 106, carbon dioxide 27, BUN 24, creatinine 1.6, magnesium 2.3, calcium 9.2. Chest x-ray from November 08 reveals stable cardiomegaly and small bilateral effusions. EKG on admission is AV paced. Echocardiogram from July 2016, moderately dilated LV with severely reduced dysfunction, pretty much global, ejection fraction is about 5%. IMPRESSION: 1. Persistent probably permanent atrial tachycardia at an atrial rate of 117 beats per minute. 2. Intermittent LV capture thereby reducing the amount of biventricular pacing secondary to worsening LV capture threshold. 3. Elevated RV capture threshold. 4. Ischemic cardiomyopathy, ejection fraction less than 5% with a biventricular ICD with early depletion occurring. 5. Coronary artery disease. 6. PAF and flutter on amiodarone and Eliquis. PLAN: I have reprogrammed the patient's device to increase his base rate to 70, which allowed for less fusion beats to occur and promoting ventricular pacing. In addition, I increased the program rate of his LV to 8 and 1.25 since his thresholds today is at 6 and 1.5. This will promote more BiV pacing. Lastly, I was unable to break his atrial tachycardia by trying to burst pace today. He will follow up with me in the office when it comes close to generator change, it is going to be a complicated decision since he has low EF, he is at a high risk, even if we could try to alter his leads and add an LV lead, not sure if his current LV lead is chronically in there and will not come out as nicely, he can be at increased morbidity for this, but we should look at some type of option. I will probably recommend doing a peripheral venogram at first, so we can ensure that his subclavian vein is even patent, but we will discuss this further with the patient as time gets closer towards the generator change. Thank you for allowing me to participate in this patient's care. HAILEY
--- NOTE | 2016-11-09 18:27 | Progress Note ---
Internal Med Progress Note Date of Service: Nov 09, 2016. Provider Documentation: SUBJECTIVE: resting comfortably ambulating in room says sob is better denies chest pain afebrile wants to go home OBJECTIVE: Vital Signs-as noted below Exam: General-alert and awake and oriented. Not in distress ENT-normal hearing Neck-no neck masses Lungs-cta b/l no wheezing bibasilar crackles present Heart-s1 and s2 heard, regular rate and rhythm no murmurs Abdomen-soft bowel sounds present non tender no distension Extremities-mild pedal edema no erythema Neuro-alert and awake moves extremities Lab data as noted below. ASSESSMENT & PLAN: This is a 80-year-old male who presents with shortness of breath. 1. Shortness of breath, hypoxia on room air, acute systolic congestive heart failure exacerbation, baseline EF around 15%, status post biventricular pacemaker. started on iv Lasix 40mg bid improving plan to increase out patient Lasix to 40mg bid daily weights appreciate cardiology inputs to follow up with EP for ICD battery change pt/ot 2. History of paroxysmal atrial fibrillation, rate controlled with amiodarone. Dose of amiodarone as per cardiology and is on Eliquis. stable. 3. Diabetes. We will hold the glipizide. Place him on insulin sliding scale. Monitor blood sugars.Fairly controlled. 4. History of coronary artery disease status post coronary artery bypass graft. Continue his home medications of pravastatin, Plavix and nitrates p.r.n. His Toprol and Isordil on hold for side effects.stable. 5. Hypothyroidism. Continue Synthroid. 6. Hyperlipidemia. Continue statin. 7. Hypertension. Continue lisinopril. 8. Chronic kidney disease stage III, baseline creatinine 1.8. We will monitor kidney function while on IV Lasix. If worsens, we will consult nephrology.Cr 1.6 today. 9. Deep venous thrombosis prophylaxis. On Eliquis. DISPOSITION monitor in tele to be determined await pt/ot Vital Signs: Date Time Temp Pulse Resp B/P Pulse Ox O2 Delivery O2 Flow Rate FiO2 11/09/16 16:00 93 Room Air 11/09/16 15:26 36.7 73 20 138/74 90 Room Air 11/09/16 12:00 95 Room Air 11/09/16 11:31 36.8 71 16 128/83 92 11/09/16 08:00 94 Nasal Cannula 2.0 11/09/16 07:52 37.1 64 16 121/72 94 11/09/16 04:05 Nasal Cannula 2.0 11/09/16 04:00 36.9 71 18 134/75 90 Room Air 11/09/16 00:05 Nasal Cannula 2.0 11/08/16 23:13 37.3 69 18 146/78 92 Nasal Cannula 2.0 11/08/16 20:00 Nasal Cannula 2.0 Lab Results: Results Past 24 Hours Test 11/08/16 20:20 11/09/16 00:30 11/09/16 07:17 11/09/16 08:01 Range/Units Bedside Glucose 179 145 70-99 mg/dl Total Creatine Kinase 86 39-308 U/L Creatine Kinase MB 1.6 0.5-3.6 ng/ml Creatine Kinase MB Ratio 1.9 0-3.0 Troponin I 0.024 0-0.045 ng/ml White Blood Count 10.83 4.8-10.8 K/uL Red Blood Count 4.07 4.7-6.1 M/uL Hemoglobin 13.0 14.0-18.0 g/dL Hematocrit 38.8 42-52 % Mean Corpuscular Volume 95.3 80-100 fL Mean Corpuscular Hemoglobin 31.9 25-34 pg Mean Corpuscular Hemoglobin Concent 33.5 32-36 g/dl Platelet Count 209 130-400 K/uL Mean Platelet Volume 8.3 7.4-10.4 fL Neutrophils (%) (Auto) 85.1 % Lymphocytes (%) (Auto) 7.0 % Monocytes (%) (Auto) 5.6 % Eosinophils (%) (Auto) 1.5 % Basophils (%) (Auto) 0.2 % Neutrophils # (Auto) 9.21 1.4-6.5 K/uL Lymphocytes # (Auto) 0.76 1.2-3.4 K/uL Monocytes # (Auto) 0.61 0.11-0.59 K/uL Eosinophils # (Auto) 0.16 0-0.5 K/uL Basophils # (Auto) 0.02 0-0.2 K/uL RDW Standard Deviation 47.8 36.4-46.3 fL RDW Coefficient of Variation 13.7 11.5-14.5 % Immature Granulocyte % (Auto) 0.6 % Immature Granulocyte # (Auto) 0.07 0.00-0.02 K/uL Sodium Level 143 136-145 mmol/L Potassium Level 3.7 3.5-5.1 mmol/L Chloride Level 106 98-107 mmol/L Carbon Dioxide Level 27 21-32 mmol/L Anion Gap 10.0 3-11 mmol/L Blood Urea Nitrogen 24 7-18 mg/dl Creatinine 1.60 0.60-1.40 mg/dl Est Creatinine Clear Calc Drug Dose 42.3 ml/min Estimated GFR () 46.8 Estimated GFR (Non- 40.4 BUN/Creatinine Ratio 15.2 10-20 Random Glucose 133 70-99 mg/dl Estimated Average Glucose 146 mg/dl Hemoglobin A1c 6.7 4.5-5.6 % Calcium Level 9.2 8.5-10.1 mg/dl Magnesium Level 2.3 1.8-2.4 mg/dl Test 11/09/16 11:28 11/09/16 16:28 Range/Units Bedside Glucose 124 141 70-99 mg/dl
[2016-11-09] MEDS: CHOLECALCIFEROL 1000 INTER.UNIT TAB PO SCH (20:57)
[2016-11-09] MEDS: LISINOPRIL 5 MG TAB PO SCH (20:57)
[2016-11-09] MEDS: PRAVASTATIN SOD 40 MG TAB PO SCH (20:57)
[2016-11-10] VITALS (9 sets, daily range): BP systolic 105–131; BP diastolic 57–82; PULSE 64–73; TEMP 36.5–37; O2SAT 90–98
[2016-11-10] MEDS: ACETAMINOPHEN 325 MG TAB PO PRN (01:35)
[2016-11-10] MEDS: LEVOTHYROXINE 25 MCG TAB PO SCH (06:04)
[2016-11-10 07:44] LABS: BASO % 0.3 %; BASO ABS # 0.03 K/uL (0-0.2); COMPLETE YES; EOS % 1.4 %; HEMATOCRIT 39.7 % (42-52); IG% 0.7 %; LYMPH % 9.2 %; LYMPH ABS # 0.96 K/uL (1.2-3.4); MEAN CELL VOLUME 96.8 fL (80-100); MEAN CORPUSCULAR HEMOGLOBIN 32.4 pg (25-34); MEAN CORPUSCULAR HGB CONC 33.5 g/dl (32-36); MEAN PLATELET VOLUME 8.6 fL (7.4-10.4); MONO % 6.9 %; NEUT % 81.5 %; PLATELET COUNT 211 K/uL (130-400); WHITE BLOOD COUNT 10.46 K/uL (4.8-10.8)
[2016-11-10 08:16] LABS: BUN/CREATININE RATIO 15.5 (10-20); CALCIUM 8.9 mg/dl (8.5-10.1); CREATININE 1.6 mg/dl (0.60-1.40); MAGNESIUM 2.4 mg/dl (1.8-2.4); POTASSIUM 3.4 mmol/L (3.5-5.1)
[2016-11-10] MEDS: CLOPIDOGREL BISULFATE 75 MG TAB PO SCH (08:16)
[2016-11-10] MEDS: FUROSEMIDE INJ 40 MG in SYRINGE 0 ML IV SCH (08:16)
[2016-11-10] MEDS: POTASSIUM CHLORIDE 20 MEQ TABCR PO SCH (08:17)
[2016-11-10] MEDS: APIXABAN 2.5 MG TAB PO SCH ×2 (08:17→22:34)
[2016-11-10] MEDS: CALCITRIOL 0.25 MCG CAP PO SCH (08:17)
[2016-11-10] MEDS: AMIODARONE 200 MG TAB PO SCH ×2 (08:17→22:34)
[2016-11-10] MEDS: INSULIN ASPART 100 UNITS/ML 3 ML PEN SC SCH ×4 (08:24→22:36)
--- NOTE | 2016-11-10 11:32 | CARDIOLOGY PROGRESS NOTE ---
DATE: 11/10/2016 DATE: 11/10/2016. The patient seen and examined. Chart, medications, telemetry reviewed. SUBJECTIVE: The patient feels improved this morning is lying flat, comfortable without worsening shortness of breath. Notes no dizziness or lightheadedness. Notes no sense of tachypalpitations. Has been ambulatory in room without difficulty. Telemetry and EKG demonstrates biventricular pacing, intermittent atrial pacing. OBJECTIVE: VITAL SIGNS: Heart rate 70, blood pressure is 130/82. NECK: Thick. There is no jugular venous distention. No carotid bruits. LUNGS: Clear to auscultation. CARDIOVASCULAR EXAMINATION: Regular with paced rhythm. ABDOMEN: Soft. EXTREMITIES: Reveal trivial pedal edema only. LABORATORY DATA: Sodium is 144, potassium is 3.4, chloride is 105, bicarbonate is 28, BUN is 25, creatinine is 1.6, glucose is 134, hemoglobin is 13.3. IMPRESSION: Complex 80-year-old male admitted with acute on chronic biventricular heart failure with severe LV dysfunction, now improved after IV diuretics, atrial arrhythmia adjustments and increase in baseline rate of biventricular pacing. RECOMMENDATIONS: Increase oral furosemide to 40 mg twice per day. Reduce potassium supplement 20 mEq per day with reinstitution if spironolactone at 12.5 mg per day. Anticipates follow up through heart failure clinic on Saturday at [facility]. As patient ambulates in room he may be discharged to home if clinically stable from cardiac standpoint.
[2016-11-10] MEDS ORDERED: SPIRONOLACTONE 25 MG TAB PO ONE (13:00)
[2016-11-10] MEDS: FUROSEMIDE 40 MG TAB PO SCH (17:47)
--- NOTE | 2016-11-10 18:57 | Progress Note ---
Internal Med Progress Note Date of Service: Nov 10, 2016. Provider Documentation: SUBJECTIVE: resting comfortably says ambulating in room fine no chest pain no nausea want to go home OBJECTIVE: Vital Signs-as noted below Exam: General-alert and awake and oriented. Not in distress ENT-normal hearing Neck-no neck masses Lungs-cta b/l no wheezing mild bibasilar crackles present Heart-s1 and s2 heard, regular rate and rhythm no murmurs Abdomen-soft bowel sounds present non tender no distension Extremities-mild pedal edema no erythema Neuro-alert and awake moves extremities Lab data as noted below. ASSESSMENT & PLAN: This is a 80-year-old male who presents with shortness of breath. 1. Shortness of breath, hypoxia on room air, acute systolic congestive heart failure exacerbation, baseline EF around 15%, status post biventricular pacemaker. started on iv Lasix 40mg bid improving plan to increase out patient Lasix to 40mg bid daily weights appreciate cardiology inputs to follow up with EP for ICD battery change Lasix changed to p 40mg bid today spirolactone added pt/ot 2. History of paroxysmal atrial fibrillation, rate controlled with amiodarone. Dose of amiodarone as per cardiology and is on Eliquis. stable. 3. Diabetes. We will hold the glipizide. Place him on insulin sliding scale. Monitor blood sugars.147/134/148/143 4. History of coronary artery disease status post coronary artery bypass graft. Continue his home medications of pravastatin, Plavix and nitrates p.r.n. His Toprol and Isordil on hold for side effects.stable. 5. Hypothyroidism. Continue Synthroid. 6. Hyperlipidemia. Continue statin. 7. Hypertension. Continue lisinopril. 8. Chronic kidney disease stage III, baseline creatinine 1.8. We will monitor kidney function while on IV Lasix. If worsens, we will consult nephrology.Cr 1.6 today. 9. Deep venous thrombosis prophylaxis. On Eliquis. DISPOSITION monitor in tele possible d/c in am or Saturday Vital Signs: Date Time Temp Pulse Resp B/P Pulse Ox O2 Delivery O2 Flow Rate FiO2 11/10/16 16:00 98 Nasal Cannula 2.0 11/10/16 15:32 36.8 71 16 127/71 94 Room Air 11/10/16 12:00 97 Nasal Cannula 2.0 11/10/16 11:24 36.5 70 16 128/77 95 11/10/16 08:00 98 Nasal Cannula 2.0 11/10/16 07:35 36.8 70 16 130/82 91 Nasal Cannula 2.0 11/10/16 04:00 36.7 73 20 106/65 91 Room Air 11/10/16 00:09 37.0 64 18 105/57 97 Room Air 11/10/16 00:00 Room Air 11/09/16 20:00 Room Air 11/09/16 19:33 37.1 75 20 112/73 90 Room Air Lab Results: Results Past 24 Hours Test 11/09/16 20:26 11/10/16 07:18 11/10/16 07:19 11/10/16 11:09 Range/Units Bedside Glucose 164 134 148 70-99 mg/dl White Blood Count 10.46 4.8-10.8 K/uL Red Blood Count 4.10 4.7-6.1 M/uL Hemoglobin 13.3 14.0-18.0 g/dL Hematocrit 39.7 42-52 % Mean Corpuscular Volume 96.8 80-100 fL Mean Corpuscular Hemoglobin 32.4 25-34 pg Mean Corpuscular Hemoglobin Concent 33.5 32-36 g/dl Platelet Count 211 130-400 K/uL Mean Platelet Volume 8.6 7.4-10.4 fL Neutrophils (%) (Auto) 81.5 % Lymphocytes (%) (Auto) 9.2 % Monocytes (%) (Auto) 6.9 % Eosinophils (%) (Auto) 1.4 % Basophils (%) (Auto) 0.3 % Neutrophils # (Auto) 8.53 1.4-6.5 K/uL Lymphocytes # (Auto) 0.96 1.2-3.4 K/uL Monocytes # (Auto) 0.72 0.11-0.59 K/uL Eosinophils # (Auto) 0.15 0-0.5 K/uL Basophils # (Auto) 0.03 0-0.2 K/uL RDW Standard Deviation 48.6 36.4-46.3 fL RDW Coefficient of Variation 13.7 11.5-14.5 % Immature Granulocyte % (Auto) 0.7 % Immature Granulocyte # (Auto) 0.07 0.00-0.02 K/uL Sodium Level 144 136-145 mmol/L Potassium Level 3.4 3.5-5.1 mmol/L Chloride Level 105 98-107 mmol/L Carbon Dioxide Level 28 21-32 mmol/L Anion Gap 11.0 3-11 mmol/L Blood Urea Nitrogen 25 7-18 mg/dl Creatinine 1.60 0.60-1.40 mg/dl Est Creatinine Clear Calc Drug Dose 42.7 ml/min Estimated GFR () 46.8 Estimated GFR (Non- 40.4 BUN/Creatinine Ratio 15.5 10-20 Random Glucose 147 70-99 mg/dl Calcium Level 8.9 8.5-10.1 mg/dl Magnesium Level 2.4 1.8-2.4 mg/dl Test 11/10/16 16:00 Range/Units Bedside Glucose 143 70-99 mg/dl
[2016-11-10] MEDS: PRAVASTATIN SOD 40 MG TAB PO SCH (22:34)
[2016-11-10] MEDS: CHOLECALCIFEROL 1000 INTER.UNIT TAB PO SCH (22:35)
[2016-11-10] MEDS: LISINOPRIL 5 MG TAB PO SCH (22:35)
[2016-11-11 00:16] VITALS: BP 143/79; PULSE 71; TEMP 36.9; O2SAT 92
[2016-11-11 04:00] VITALS: BP 110/62; PULSE 71; TEMP 36.9; O2SAT 97
[2016-11-11] MEDS: LEVOTHYROXINE 25 MCG TAB PO SCH (06:02)
[2016-11-11 07:07] VITALS: BP 99/64; PULSE 70; TEMP 36.6; O2SAT 92
[2016-11-11 07:37] LABS: BASO % 0.4 %; BASO ABS # 0.05 K/uL (0-0.2); COMPLETE YES; EOS % 1.6 %; HEMATOCRIT 42.1 % (42-52); IG% 1.2 %; LYMPH % 11.2 %; LYMPH ABS # 1.37 K/uL (1.2-3.4); MEAN CELL VOLUME 96.1 fL (80-100); MEAN CORPUSCULAR HEMOGLOBIN 32.9 pg (25-34); MEAN CORPUSCULAR HGB CONC 34.2 g/dl (32-36); MEAN PLATELET VOLUME 8.5 fL (7.4-10.4); NEUT % 78.6 %; PLATELET COUNT 296 K/uL (130-400); RED BLOOD COUNT 4.38 M/uL (4.7-6.1); WHITE BLOOD COUNT 12.23 K/uL (4.8-10.8)
[2016-11-11] MEDS: CLOPIDOGREL BISULFATE 75 MG TAB PO SCH (07:47)
[2016-11-11] MEDS: APIXABAN 2.5 MG TAB PO SCH (07:48)
[2016-11-11] MEDS: AMIODARONE 200 MG TAB PO SCH (07:48)
[2016-11-11] MEDS: INSULIN ASPART 100 UNITS/ML 3 ML PEN SC SCH ×2 (07:53→12:01)
[2016-11-11] MEDS: CALCITRIOL 0.25 MCG CAP PO SCH (08:20)
[2016-11-11] MEDS: FUROSEMIDE 40 MG TAB PO SCH (08:20)
[2016-11-11 08:21] LABS: BLOOD UREA NITROGEN 29 mg/dl (7-18); BUN/CREATININE RATIO 16.8 (10-20); CARBON DIOXIDE 25 mmol/L (21-32); CHLORIDE 104 mmol/L (98-107); GLUCOSE 207 mg/dl (70-99); SODIUM 141 mmol/L (136-145)
[2016-11-11] MEDS ORDERED: POTASSIUM CHLORIDE 20 MEQ TABCR PO SCH (09:00)
[2016-11-11] MEDS ORDERED: SPIRONOLACTONE 25 MG TAB PO SCH (09:00)
[2016-11-11 09:03] LABS: MAGNESIUM 2.4 mg/dl (1.8-2.4)
[2016-11-11 11:24] VITALS: BP 114/70; PULSE 72; TEMP 36.9; O2SAT 94
[2016-11-11] MEDS ORDERED: LSX40 PO (12:09)
[2016-11-11] MEDS ORDERED: SPR25 PO (12:09)
[2016-11-11] MEDS ORDERED: MCRK20 PO (12:09)
--- NOTE | 2016-11-11 12:13 | Discharge Instructions ---
Discharge Instructions Admission Reason for Admission: Acute Systolic Chf Discharge Discharge Diagnosis / Problem: ACUTE SYSTOLIC CHF Discharge Goals Goal(s): Decrease discomfort, Improve function Activity Recommendations Activity Limitations: resume your previous activity . Instructions / Follow-Up Instructions / Follow-Up FOLLOWUP WITH FAMILY DOCTOR Sobeida Metz ON November AT 2:50PM. FOLLOWUP WITH CARDIOLOGY SCHEDULED ON SATURDAY. LAB: BMP WITH MG LEVELS IN ONE WEEK AND FOLLOW RESULTS WITH FAMILY DOCTOR Call your Primary Care doctor if any of the following symptoms or problems start or get worse: * Shortness of breath or difficulty breathing * Wake up at night short of breath * Chest pain * Cough * Swelling of your hands, feet, or legs * More fatigued or tired with your normal activity * Palpitations - sudden fast heart beats WEIGHT * Weigh yourself every morning after using the bathroom. * Use the same scale. * Wear the same amount of clothing. * Write your weight down on a chart. * Call your Primary Care doctor if you gain more than 2-3 pounds in 1-2 days. MEDICATIONS * Use this discharge instruction sheet for medication instructions. * Take your medications at the time your doctor ordered. * Do not skip a dose of your medicines. * If you miss a dose of medicine, take it as soon as possible, but DO NOT DOUBLE A DOSE. * Read your medicine information when you get home. * Know all of the side effects of your medicine. If in doubt, ask your pharmacist * Call your Primary Care doctor's office if you have any side effects. * Be sure all of your doctors know what medicine and herbs you take (including cold, flu, and herbal medicine). Take the following with you to your follow-up doctor appointments: * Weight Chart * Medication List * List of questions Do not drink excessive alcohol, beer or wine. Current Hospital Diet Patient's current hospital diet: AHA Diet (Heart Healthy), Diabetes Type 2 Diet Discharge Diet Recommended Diet: AHA Diet (Heart Healthy), Diabetes Type 2 Diet Pending Studies Studies pending at discharge: no Laboratory Results Hemoglobin A1c Test 11/09/16 08:01 Range/Units Estimated Average Glucose 146 mg/dl Hemoglobin A1c 6.7 H 4.5-5.6 % Medical Emergencies . Who to Call and When: Call 911 or go to the Emergency Room if: * If at any time you feel your situation is an emergency * You have tightness or pain in your chest that does not go away with rest or Nitroglycerin * You are very short of breath even with rest . Non-Emergent Contact Non-Emergency issues call your: Primary Care Provider . . "Provider Documentation" section prepared by Darius Quinones. VTE Core Measure Inpt VTE Proph given/why not?: Other Anticoagulation (ELIQUIS)
[2016-11-11 12:26] VITALS: BP 114/70; PULSE 72; TEMP 36.9; O2SAT 94
--- NOTE | 2016-11-11 12:47 | PROGRESS NOTE ---
DATE: 11/11/2016 CARDIOLOGY CONSULTATION FOLLOWUP NOTE The patient seen and examined. Chart, medications, telemetry reviewed. SUBJECTIVE: He had a good night. No complaints, sleeping, lying flat without difficulty. Notes no worsening shortness of breath. Notes no dizziness or lightheadedness. OBJECTIVE: VITAL SIGNS: Heart rate is 70 and paced, blood pressure is 99/64. NECK: Thin. There is no jugular venous distention. LUNGS: Clear to auscultation. CARDIOVASCULAR: Regular. There is no S3 gallop. ABDOMEN: Soft. EXTREMITIES: Free of edema. LABORATORY DATA: Sodium is 141, potassium is 4.0, chloride is 104, bicarb is 25, BUN is 29, creatinine is 1.7. IMPRESSION: A 80-year-old male with history of severe ischemic cardiomyopathy and severe left ventricular dysfunction with class 3-4 congestive heart failure, admitted with acute decompensated systolic heart failure, now clinically improved. Pacer defibrillator has been adjusted to optimize therapies. PLAN: Discharge to home on increased diuretic dosing at 40 mg furosemide twice per day, resumption of low-dose spironolactone at 12.5 mg per day and 20 mg potassium per day is anticipated. Follow up with cardiology congestive heart failure clinic on Saturday in [place]. [facility]
--- NOTE | 2016-11-11 19:28 | Progress Note ---
Internal Med Progress Note Date of Service: Nov 11, 2016. Provider Documentation: SUBJECTIVE: resting comfortably ambulating in room fine denies chest pain or sob Ok to go home OBJECTIVE: Vital Signs-as noted below Exam: General-alert and awake and oriented. Not in distress ENT-normal hearing Neck-no neck masses Lungs-cta b/l no wheezing mild bibasilar crackles present Heart-s1 and s2 heard, regular rate and rhythm no murmurs Abdomen-soft bowel sounds present non tender no distension Extremities-mild pedal edema no erythema Neuro-alert and awake moves extremities Lab data as noted below. ASSESSMENT & PLAN: This is a 80-year-old male who presents with shortness of breath. 1. Shortness of breath, hypoxia on room air, acute systolic congestive heart failure exacerbation, baseline EF around 15%, status post biventricular pacemaker. started on iv Lasix 40mg bid improving plan to increase out patient Lasix to 40mg bid daily weights appreciate cardiology inputs to follow up with EP for ICD battery change Lasix changed to p 40mg bid today spirolactone added f/u labs with pcp. stable 2. History of paroxysmal atrial fibrillation, rate controlled with amiodarone. Dose of amiodarone as per cardiology and is on Eliquis. stable. 3. Diabetes. We will hold the glipizide. Place him on insulin sliding scale. Monitor blood sugars.147/134/148/143 4. History of coronary artery disease status post coronary artery bypass graft. Continue his home medications of pravastatin, Plavix and nitrates p.r.n. His Toprol and Isordil on hold for side effects.stable. 5. Hypothyroidism. Continue Synthroid. 6. Hyperlipidemia. Continue statin. 7. Hypertension. Continue lisinopril. 8. Chronic kidney disease stage III, baseline creatinine 1.8. We will monitor kidney function while on IV Lasix. If worsens, we will consult nephrology.Cr 1.7 today. 9. Deep venous thrombosis prophylaxis. On Eliquis. Discharged home Vital Signs: Date Time Temp Pulse Resp B/P Pulse Ox O2 Delivery O2 Flow Rate FiO2 11/11/16 12:26 36.9 72 17 94 Room Air 11/11/16 11:24 36.9 72 17 114/70 94 Room Air 11/11/16 08:00 Room Air 11/11/16 07:07 36.6 70 17 99/64 92 Nasal Cannula 2.0 11/11/16 04:11 Nasal Cannula 2.0 11/11/16 04:00 36.9 71 18 110/62 97 11/11/16 00:16 36.9 71 18 143/79 92 2.0 11/11/16 00:02 Nasal Cannula 2.0 11/10/16 20:00 Room Air 11/10/16 19:32 36.8 72 16 131/67 90 Room Air Lab Results: Results Past 24 Hours Test 11/10/16 20:34 11/11/16 06:37 11/11/16 06:41 11/11/16 08:39 Range/Units Bedside Glucose 148 213 70-99 mg/dl White Blood Count 12.23 4.8-10.8 K/uL Red Blood Count 4.38 4.7-6.1 M/uL Hemoglobin 14.4 14.0-18.0 g/dL Hematocrit 42.1 42-52 % Mean Corpuscular Volume 96.1 80-100 fL Mean Corpuscular Hemoglobin 32.9 25-34 pg Mean Corpuscular Hemoglobin Concent 34.2 32-36 g/dl Platelet Count 296 130-400 K/uL Mean Platelet Volume 8.5 7.4-10.4 fL Neutrophils (%) (Auto) 78.6 % Lymphocytes (%) (Auto) 11.2 % Monocytes (%) (Auto) 7.0 % Eosinophils (%) (Auto) 1.6 % Basophils (%) (Auto) 0.4 % Neutrophils # (Auto) 9.61 1.4-6.5 K/uL Lymphocytes # (Auto) 1.37 1.2-3.4 K/uL Monocytes # (Auto) 0.86 0.11-0.59 K/uL Eosinophils # (Auto) 0.19 0-0.5 K/uL Basophils # (Auto) 0.05 0-0.2 K/uL RDW Standard Deviation 48.4 36.4-46.3 fL RDW Coefficient of Variation 13.8 11.5-14.5 % Immature Granulocyte % (Auto) 1.2 % Immature Granulocyte # (Auto) 0.15 0.00-0.02 K/uL Sodium Level 141 136-145 mmol/L Potassium Level 4.0 3.5-5.1 mmol/L Chloride Level 104 98-107 mmol/L Carbon Dioxide Level 25 21-32 mmol/L Anion Gap 12.0 3-11 mmol/L Blood Urea Nitrogen 29 7-18 mg/dl Creatinine 1.70 0.60-1.40 mg/dl Est Creatinine Clear Calc Drug Dose 39.6 ml/min Estimated GFR () 43.5 Estimated GFR (Non- 37.5 BUN/Creatinine Ratio 16.8 10-20 Random Glucose 207 70-99 mg/dl Calcium Level 9.0 8.5-10.1 mg/dl Magnesium Level 2.4 1.8-2.4 mg/dl Test 11/11/16 11:00 Range/Units Bedside Glucose 141 70-99 mg/dl
--- NOTE | 2016-11-11 19:30 | Discharge Summary ---
Discharge Summary Date of Service Nov 11, 2016. Discharge Summary Admission Date: Nov 08, 2016 at 08:49 Discharge Date: Nov 11, 2016 Discharge Disposition: Home Principal Diagnosis: ACUTE ON CHRONIC SYSTOLIC CHF Secondary Diagnoses/Problems: chronic systolic CHF with EF of around 15%, status post biventricular defibrillator, history of CAD status post CABG, history of diabetes, hypertension, paroxysmal atrial fibrillation on Eliquis, peripheral vascular disease, chronic kidney disease stage III, hypothyroidism, diabetes, history of ventricular tachycardia Procedures: CXR: Stable cardiomegaly congestive failure and small bilateral pleural effusions. Consultations: CARDIOLOGY Medication Reconciliation New Medications: Furosemide (Furosemide) 40 Mg Tab 40 MG PO BID17, #60 TAB 2 Refills Potassium Chloride (Klor-Con M20) 20 Meq Tabcr 20 MEQ PO QAM, #30 2 Refills Spironolactone (Spironolactone) 25 Mg Tab 12.5 MG PO QAM for 30 Days, #15 TAB 2 Refills Continued Medications: Acetaminophen (Tylenol) 500 Mg Tab 1000 MG PO BID, TAB Alprazolam (Xanax) 1 Mg Tab 1 MG PO BID PRN for Anxiety, TAB Amiodarone HCl (Amiodarone HCl) 200 Mg Tab 200 MG PO BID, TAB Apixaban (Eliquis) 2.5 Mg Tab 2.5 MG PO BID, TAB Calcitriol (Calcitriol) 0.25 Mcg Cap 0.25 MCG PO QAM Cholecalciferol (Vitamin D3) 2,000 Unit Cap 2000 INTUNIT PO QPM Clopidogrel (Plavix) 75 Mg Tab 75 MG PO QAM, TAB Glimepiride (Amaryl) 1 Mg Tab 1 MG PO QAM, TAB Levothyroxine Sodium (Levothyroxine Sodium) 25 Mcg Tab 25 MCG PO QAM Lisinopril (Zestril) 10 Mg Tab 5 MG PO QPM, TAB Nitroglycerin (Nitrostat) 0.4 Mg Tab 0.4 MG UT UD PRN for Chest Pain, BTL PLACE ONE TABLET UNDER THE TONGUE EVERY 5 MINUTES FOR UP TO 3 DOSES IF NEEDED FOR CHEST PAIN. Pravastatin Sodium (Pravastatin Sodium) 80 Mg Tab 80 MG PO QPM Discontinued Medications: Furosemide (Lasix) 40 Mg Tab 40 MG PO DAILY, TAB Admission Information HPI (per Admitting provider): This is a 80-year-old male with past medical history significant for chronic systolic CHF with EF of around 15%, status post biventricular defibrillator, history of CAD status post CABG, history of diabetes, hypertension, paroxysmal atrial fibrillation on Eliquis, peripheral vascular disease, chronic kidney disease stage III, hypothyroidism, diabetes, history of ventricular tachycardia presents with shortness of breath. The patient says for about last 1 week he is progressively getting short of breath which is worsening. In the last 2 days even getting up and dressing is making short of breath, has orthopnea. Not much swelling in the legs, has some cough but denies any fevers, chills, no dizziness, no blurred vision, no nausea, no vomiting, no abdominal pain, no diarrhea or constipation. Normal bladder movements. Appetite is not that great. He also says that his pacemaker battery life is low and also some of his pacer wires are not working as per him. Currently patient was hypoxic on room air when he came to the ER, saturating 88% on room air, on 2 liters nasal cannula saturating in mid 90s. Physical Exam (per Admitting): GENERAL: The patient of moderate build, not in distress. VITAL SIGNS: Temperature 36.6, pulse 61, respiratory rate 20, blood pressure 131/61, oxygen 98% on room air and 96% on 2 liters. HEAD, EYES, EARS, NOSE, AND THROAT: No pallor, no icterus. Pupils equal, round, and reactive to light. NECK: No JVD, no neck masses, no carotid bruits. CARDIOVASCULAR: S1, S2 heard, regular rate and rhythm, no murmur, no gallop. RESPIRATORY SYSTEM: Normal AP diameter. No accessory muscle use. No wheezing, bibasilar crackles present. ABDOMEN: Soft, bowel sounds present. Nontender. No distention. CENTRAL NERVOUS SYSTEM: Cranial nerves II-XII grossly intact. Nonfocal. EXTREMITIES: Trace pedal edema present, no erythema seen. Hospital Course This is a 80-year-old male who presents with shortness of breath. 1. Shortness of breath, hypoxia on room air, acute systolic congestive heart failure exacerbation, baseline EF around 15%, status post biventricular pacemaker. started on iv Lasix 40mg bid improving plan to increase out patient Lasix to 40mg bid daily weights appreciate cardiology inputs to follow up with EP for ICD battery change Lasix changed to p 40mg bid today spirolactone added f/u labs with pcp. stable 2. History of paroxysmal atrial fibrillation, rate controlled with amiodarone. Dose of amiodarone as per cardiology and is on Eliquis. stable. 3. Diabetes. We will hold the glipizide. Place him on insulin sliding scale. Monitor blood sugars.147/134/148/143 4. History of coronary artery disease status post coronary artery bypass graft. Continue his home medications of pravastatin, Plavix and nitrates p.r.n. His Toprol and Isordil on hold for side effects.stable. 5. Hypothyroidism. Continue Synthroid. 6. Hyperlipidemia. Continue statin. 7. Hypertension. Continue lisinopril. 8. Chronic kidney disease stage III, baseline creatinine 1.8. We will monitor kidney function while on IV Lasix. If worsens, we will consult nephrology.Cr 1.7 today. 9. Deep venous thrombosis prophylaxis. On Eliquis. Discharged home Total time spent on discharge = 40MINUTES This includes examination of the patient, discharge planning, medication reconciliation, and communication with other providers. Discharge Instructions Please take this sheet to every appointment for the next month Discharge Instructions Admission Reason for Admission: Acute Systolic Chf Discharge Discharge Diagnosis / Problem: ACUTE SYSTOLIC CHF Discharge Goals Goal(s): Decrease discomfort, Improve function Activity Recommendations Activity Limitations: resume your previous activity . Instructions / Follow-Up Instructions / Follow-Up FOLLOWUP WITH FAMILY DOCTOR Sobeida Metz ON November AT 2:50PM. FOLLOWUP WITH CARDIOLOGY SCHEDULED ON SATURDAY. LAB: BMP WITH MG LEVELS IN ONE WEEK AND FOLLOW RESULTS WITH FAMILY DOCTOR Call your Primary Care doctor if any of the following symptoms or problems start or get worse: * Shortness of breath or difficulty breathing * Wake up at night short of breath * Chest pain * Cough * Swelling of your hands, feet, or legs * More fatigued or tired with your normal activity * Palpitations - sudden fast heart beats WEIGHT * Weigh yourself every morning after using the bathroom. * Use the same scale. * Wear the same amount of clothing. * Write your weight down on a chart. * Call your Primary Care doctor if you gain more than 2-3 pounds in 1-2 days. MEDICATIONS * Use this discharge instruction sheet for medication instructions. * Take your medications at the time your doctor ordered. * Do not skip a dose of your medicines. * If you miss a dose of medicine, take it as soon as possible, but DO NOT DOUBLE A DOSE. * Read your medicine information when you get home. * Know all of the side effects of your medicine. If in doubt, ask your pharmacist * Call your Primary Care doctor's office if you have any side effects. * Be sure all of your doctors know what medicine and herbs you take (including cold, flu, and herbal medicine). Take the following with you to your follow-up doctor appointments: * Weight Chart * Medication List * List of questions Do not drink excessive alcohol, beer or wine. Current Hospital Diet Patient's current hospital diet: AHA Diet (Heart Healthy), Diabetes Type 2 Diet Discharge Diet Recommended Diet: AHA Diet (Heart Healthy), Diabetes Type 2 Diet Pending Studies Studies pending at discharge: no Laboratory Results Hemoglobin A1c Test 11/09/16 08:01 Range/Units Estimated Average Glucose 146 mg/dl Hemoglobin A1c 6.7 H 4.5-5.6 % Medical Emergencies . Who to Call and When: Call 911 or go to the Emergency Room if: * If at any time you feel your situation is an emergency * You have tightness or pain in your chest that does not go away with rest or Nitroglycerin * You are very short of breath even with rest . Non-Emergent Contact Non-Emergency issues call your: Primary Care Provider . . "Provider Documentation" section prepared by Darius Quinones. VTE Core Measure Inpt VTE Proph given/why not?: Other Anticoagulation (ELIQUIS)
[2016-12-01] MEDS ORDERED: LSX40 PO (09:39)
== END 2016-11-11 14:29 | disposition home or self-care (01) | DRG 291 ==
LOC: ENRESERVTM → ENRESERVDT → C.EDB 05:11 → C.MED 08:49 → C.2T 11-10 18:50
PROVIDERS: ADMIT Internal Medicine; ATTEND Internal Medicine
PROC: 4B02XSZ Measurement of Cardiac Pacemaker, External Approach (ICD-10-PCS; principal; 2016-11-08)
PROC: 4B02XSZ Measurement of Cardiac Pacemaker, External Approach (ICD-10-PCS; 2016-11-09)
DX: I13.0 Hypertensive heart and chronic kidney disease with heart failure and stage 1 through stage 4 chronic kidney disease, or unspecified chronic kidney disease (principal); I50.23 Acute on chronic systolic (congestive) heart failure; I47.1 Supraventricular tachycardia; T82.111A Breakdown (mechanical) of cardiac pulse generator (battery), initial encounter; I48.92 Unspecified atrial flutter; I12.9 Hypertensive chronic kidney disease with stage 1 through stage 4 chronic kidney disease, or unspecified chronic kidney disease; N18.3 Chronic kidney disease, stage 3 (moderate); I48.0 Paroxysmal atrial fibrillation; E03.9 Hypothyroidism, unspecified; I25.10 Atherosclerotic heart disease of native coronary artery without angina pectoris; E11.22 Type 2 diabetes mellitus with diabetic chronic kidney disease; I25.5 Ischemic cardiomyopathy; I73.9 Peripheral vascular disease, unspecified; E78.5 Hyperlipidemia, unspecified; Y83.1 Surgical operation with implant of artificial internal device as the cause of abnormal reaction of the patient, or of later complication, without mention of misadventure at the time of the procedure; Z87.891 Personal history of nicotine dependence; Z95.1 Presence of aortocoronary bypass graft; Z90.89 Acquired absence of other organs; Z98.890 Other specified postprocedural states; Z83.3 Family history of diabetes mellitus; Z80.3 Family history of malignant neoplasm of breast; Z80.1 Family history of malignant neoplasm of trachea, bronchus and lung; Z82.49 Family history of ischemic heart disease and other diseases of the circulatory system; Z79.01 Long term (current) use of anticoagulants; Z79.02 Long term (current) use of antithrombotics/antiplatelets; Z79.84 Long term (current) use of oral hypoglycemic drugs; Z79.899 Other long term (current) drug therapy

== ENCOUNTER 2016-11-28 09:45 | Inpatient (IN) | payer OTHER ==
[~2016-11-28] VITALS: Ht 175.3 cm; Wt 91.3 kg
[~2016-11-28 09:45] MED LIST changes: +APIX1TAB PO; -ELQ25 PO; -ISOS10TA2 PO; +LSX40 PO; +MCRK20 PO; +SPR25 PO
--- NOTE | 2016-11-28 10:14 | EMERGENCY ROOM VISIT NOTE ---
History Report prepared by Erick: Liborio Oakes Under the Supervision of: Dr. Rodolfo Crowell M.D. First contact with patient: 09:55 Chief Complaint: ABNORMAL LABS Stated Complaint: ABNORMAL LAB TESTS FROM [facility] History of Present Illness The patient is an 81 year old male who presents to the Emergency Room with complaints of abnormal labs drawn yesterday. He states that he is currently in minimal discomfort. The patient states that he was at [facility] yesterday, and they called him today saying that he should come to the ED for evaluation. The patient states that he has been feeling poor the past couple of weeks leading him to get evaluated. He is additionally complaining bilateral flank pain and some diarrhea. The patient denies any fevers, chills, nausea, or vomiting. Per his , the patient has been very weak, and he has been sleeping a lot. The patient additionally states that he was recently put on Lasix, and he is worried if he has been taking all of the correct medications. Source of History: patient, spouse/significant other Onset: yesterday Position: other (global) Symptom Intensity: minimal Quality: other (abnormal labs) Timing: constant Associated Symptoms: + diarrhea, + weakness, No chills, No fevers, No nausea , No vomiting Note: Associated symptoms: flank pain Review of Systems All systems have been listed, reviewed, and are negative other than those previously mentioned. Please see Additional Medical History Sheet. Past Medical & Surgical Medical Problems: (1) Acute systolic CHF (congestive heart failure) (2) MIREILLE (acute kidney injury) (3) CKD (chronic kidney disease) stage 3, GFR 30-59 ml/min (4) Coronary artery disease (5) Diabetes mellitus, type II (6) Dyslipidemia (7) History of ventricular tachycardia (8) Hypertension (9) PAD (peripheral artery disease) (10) Spinal stenosis of lumbar region (11) Systolic CHF, chronic Surgical Problems: (1) Status post cardiac pacemaker procedure (2) Status post coronary artery bypass grafting (3) Status post lumbar surgery (4) Status post tonsillectomy Family History FH: diabetes mellitus FATHER FH: lung cancer FATHER Social History Smoking Status: Former Smoker Alcohol Use: other Drug Use: none Marital Status: Housing Status: lives with significant other Occupation Status: retired Current/Historical Medications Scheduled Acetaminophen (Tylenol), 1,000 MG PO BID Amiodarone HCl (Amiodarone HCl), 200 MG PO BID Apixaban (Eliquis), 2.5 MG PO BID Calcitriol (Calcitriol), 0.25 MCG PO QAM Cholecalciferol (Vitamin D3), 2,000 INTUNIT PO QPM Clopidogrel (Plavix), 75 MG PO QAM Furosemide (Furosemide), 40 MG PO BID17 Glimepiride (Amaryl), 1 MG PO QAM Levothyroxine Sodium (Levothyroxine Sodium), 25 MCG PO QAM Lisinopril (Zestril), 5 MG PO QPM Potassium Chloride (Klor-Con M20), 20 MEQ PO QAM Pravastatin Sodium (Pravastatin Sodium), 80 MG PO QPM Spironolactone (Spironolactone), 12.5 MG PO QAM Scheduled PRN Alprazolam (Xanax), 1 MG PO BID PRN for Anxiety Nitroglycerin (Nitrostat), 0.4 MG UT UD PRN for Chest Pain Allergies Coded Allergies: Ciprofloxacin (Verified Allergy, Unknown, UNKNOWN, 11/08/16) FROM ENDO PRE-PROCEDURE ORDERSET Physical Exam Vital Signs Date Time Temp Pulse Resp B/P Pulse Ox O2 Delivery O2 Flow Rate FiO2 11/28/16 14:15 70 21 11/28/16 14:00 99/61 11/28/16 13:45 71 22 100 11/28/16 13:43 73 18 100/66 94 Room Air 11/28/16 13:42 100/66 11/28/16 13:36 70 11/28/16 13:15 70 19 11/28/16 13:00 98/64 11/28/16 12:45 70 21 11/28/16 12:30 96/63 11/28/16 12:15 70 19 97 11/28/16 12:01 70 16 101/51 97 Room Air 11/28/16 12:01 101/51 11/28/16 11:45 71 16 94/54 97 11/28/16 11:30 79/42 11/28/16 11:15 70 21 95 11/28/16 10:59 93/55 11/28/16 10:30 85/55 11/28/16 10:15 71 21 98 11/28/16 10:14 72 11/28/16 10:11 130/64 11/28/16 09:48 36.7 74 103/61 97 Room Air Physical Exam GENERAL: Patient awake, alert, oriented x 3. Patient follows commands. Patient does not appear toxic. Patient is adequately hydrated and well- nourished. SKIN: No erythema, pallor, cyanosis or rash HEENT: Normal head, pupils equal, reactive to light and accommodation. Ears normal. Oral cavity has upper and lower dentures. Posterior pharynx appears normal. Neck: Without adenopathy, no neck vein distention. CHEST: Midsternal well healed scar. Pacemaker defibrillator on the left upper chest wall. LUNGS: Clear to auscultation. No wheezes, no rales, no rhonchi. HEART: No murmurs. No gallops. No rubs ABDOMEN: Mid abdominal hernia. No rebound, no hepatomegaly or splenomegaly. EXTREMITIES: Chronic bruising of both arms. No signs of trauma. No pedal or pretibial edema. No calf or thigh tenderness. NEUROLOGIC: Cranial nerves II-XII within normal limits. No gross motor sensory function deficits. Medical Decision & Procedures ER Provider Diagnostic Interpretation: X ray results are stated below per my interpretation and the radiologist's interpretation. CHEST 2 VIEWS ROUTINE HISTORY: weakness COMPARISON: Chest 11/08/2016. FINDINGS: No pneumothorax. Right midlung zone calcified granulomas. The heart remains enlarged. Poststernotomy changes and a left-sided pacemaker/defibrillator. The pulmonary edema has essentially resolved. No new focal lung consolidations to suggest pneumonia. Bibasilar interstitial thickening which is likely chronic. Lumbar spine fusion hardware is partially visualized. There is an old anterior wedge-shaped compression deformity at T12. IMPRESSION: Stable cardiomegaly. The pulmonary edema has resolved in the interval. Electronically signed by: Dinh Veras M.D. 11/28/2016 10:50 AM Dictated Date/Time: 11/28/2016 10:48 AM Laboratory Results 11/28/16 10:20 Red Blood Count 4.48, Mean Corpuscular Volume 95.8, Mean Corpuscular Hemoglobin 33.5, Mean Corpuscular Hemoglobin Concent 35.0, Mean Platelet Volume 9.3, Neutrophils (%) (Auto) 83.3, Lymphocytes (%) (Auto) 5.1, Monocytes (%) (Auto) 9.6, Eosinophils (%) (Auto) 0.9, Basophils (%) (Auto) 0.2, Neutrophils # (Auto) 11.81, Lymphocytes # (Auto) 0.72, Monocytes # (Auto) 1.36, Eosinophils # (Auto) 0.13, Basophils # (Auto) 0.03 11/28/16 10:20 Test 11/28/16 10:10 11/28/16 10:20 11/28/16 13:21 Urine Color YELLOW Urine Appearance CLEAR (CLEAR) Urine pH 5.5 (4.5-7.5) Urine Specific [place] 1.020 (1.000-1.030) Urine Protein NEG (NEG) Urine Glucose (UA) NEG (NEG) Urine Ketones NEG (NEG) Urine Occult Blood NEG (NEG) Urine Nitrite NEG (NEG) Urine Bilirubin NEG (NEG) Urine Urobilinogen NEG (NEG) Urine Leukocyte Esterase SMALL (NEG) Urine RBC 0-4 /hpf (0-4) Urine WBC 5-10 /hpf (0-5) Urine Epithelial Cells 0-5 /lpf (0-5) Urine Bacteria 1+ (NEG) Urine Hyaline Casts 5-10 /lpf (0-5) White Blood Count 14.18 K/uL (4.8-10.8) Red Blood Count 4.48 M/uL (4.7-6.1) Hemoglobin 15.0 g/dL (14.0-18.0) Hematocrit 42.9 % (42-52) Mean Corpuscular Volume 95.8 fL (80-100) Mean Corpuscular Hemoglobin 33.5 pg (25-34) Mean Corpuscular Hemoglobin Concent 35.0 g/dl (32-36) Platelet Count 224 K/uL (130-400) Mean Platelet Volume 9.3 fL (7.4-10.4) Neutrophils (%) (Auto) 83.3 % Lymphocytes (%) (Auto) 5.1 % Monocytes (%) (Auto) 9.6 % Eosinophils (%) (Auto) 0.9 % Basophils (%) (Auto) 0.2 % Neutrophils # (Auto) 11.81 K/uL (1.4-6.5) Lymphocytes # (Auto) 0.72 K/uL (1.2-3.4) Monocytes # (Auto) 1.36 K/uL (0.11-0.59) Eosinophils # (Auto) 0.13 K/uL (0-0.5) Basophils # (Auto) 0.03 K/uL (0-0.2) RDW Standard Deviation 47.7 fL (36.4-46.3) RDW Coefficient of Variation 13.7 % (11.5-14.5) Immature Granulocyte % (Auto) 0.9 % Immature Granulocyte # (Auto) 0.13 K/uL (0.00-0.02) Prothrombin Time 11.1 SECONDS (9.0-12.0) Prothromb Time International Ratio 1.0 (0.9-1.1) Activated Partial Thromboplast Time 28.0 SECONDS (21.0-31.0) Partial Thromboplastin Ratio 1.1 Anion Gap 8.0 mmol/L (3-11) Estimated GFR () 19.4 Estimated GFR (Non- 16.7 BUN/Creatinine Ratio 24.7 (10-20) Calcium Level 8.9 mg/dl (8.5-10.1) Total Bilirubin 0.7 mg/dl (0.2-1) Aspartate Amino Transf (AST/SGOT) 87 U/L (15-37) Alanine Aminotransferase (ALT/SGPT) 127 U/L (12-78) Alkaline Phosphatase 88 U/L (45-117) Troponin I < 0.015 ng/ml (0-0.045) Total Protein 7.0 gm/dl (6.4-8.2) Albumin 3.8 gm/dl (3.4-5.0) Globulin 3.2 gm/dl (2.5-4.0) Albumin/Globulin Ratio 1.2 (0.9-2) Procalcitonin 0.16 ng/mL (0-0.5) Bedside Lactic Acid Venous 1.83 mmol/L (0.90-1.70) Laboratory results as stated above per my review. ECG Indication: other (abnormal labs) Rate (beats per minute): 73 Rhythm: other (Ventricular paced) Findings: no acute ischemic change, no ectopy ED Course 0958: Past medical records reviewed. The patient was evaluated in room B10. A complete history and physical examination was performed. 1245: I discussed the patient's case with Kristyn Batista PA-C. She is going to evaluate the patient for further treatment. 1251: I revaluated the patient, and he was resting Medical Decision Nurses notes reviewed. Medical history sheet reviewed. Differential diagnosis includes but is not limited to: weakness, metabolic disorder, anemia, congestive heart failure. The patient was sent here after having labs drawn yesterday. The labs were significantly different than in the past. Additional labs obtained today. Please see above. The patient's potassium is elevated. His BUN and creatinine are also significantly elevated from the recent past. The patient's white count is also elevated. Patient appears to be in renal failure. He has been taking increased amounts of Lasix recently. He does not appear to have pulmonary edema/congestive failure. I discussed care with the patient, his and the hospitalist. Consults Time Called: 1240 Consulting Physician: Kristyn Russo PA-C Returned Call: [id number] I discussed the patient's case with Kristyn Batista PA-C. She is going to evaluate the patient for further treatment. Impression Primary Impression: Renal failure Additional Impressions: Hyperkalemia Leukocytosis Scribe Attestation The scribe's documentation has been prepared under my direction and personally reviewed by me in its entirety. I confirm that the note above accurately reflects all work, treatment, procedures, and medical decision making performed by me. Departure Information Dispostion Being Evaluated By Hospitalist Referrals Sobeida Cabrera M.D. (PCP) Patient Instructions My [facility] Problem Qualifiers
[2016-11-28 10:33] LABS: BASO % 0.2 %; BASO ABS # 0.03 K/uL (0-0.2); COMPLETE YES; EOS % 0.9 %; HEMATOCRIT 42.9 % (42-52); IG% 0.9 %; LYMPH % 5.1 %; LYMPH ABS # 0.72 K/uL (1.2-3.4); MEAN CELL VOLUME 95.8 fL (80-100); MEAN CORPUSCULAR HEMOGLOBIN 33.5 pg (25-34); MEAN PLATELET VOLUME 9.3 fL (7.4-10.4); MONO % 9.6 %; NEUT % 83.3 %; PLATELET COUNT 224 K/uL (130-400); RED BLOOD COUNT 4.48 M/uL (4.7-6.1); WHITE BLOOD COUNT 14.18 K/uL (4.8-10.8)
[2016-11-28 10:43] LABS: PARTIAL THROMBOPLASTIN RATIO 1.1; PROTHROMBIN TIME (PATIENT) 11.1 SECONDS (9.0-12.0)
[2016-11-28 10:47] LABS: ALT/SGPT 127 U/L (12-78); AST/SGOT 87 U/L (15-37); BLOOD UREA NITROGEN 81 mg/dl (7-18); BUN/CREATININE RATIO 24.7 (10-20); CALCIUM 8.9 mg/dl (8.5-10.1); CARBON DIOXIDE 26 mmol/L (21-32); CHLORIDE 103 mmol/L (98-107); GLUCOSE 168 mg/dl (70-99); POTASSIUM 5.7 mmol/L (3.5-5.1); SODIUM 137 mmol/L (136-145)
[2016-11-28 10:50] LABS: MANUAL MICROSCOPIC REQUIRED? YES; URINE APPEARANCE CLEAR (CLEAR); URINE BILIRUBIN NEG (NEG); URINE COLOR YELLOW; URINE NITRITE NEG (NEG); URINE PH 5.5 (4.5-7.5); UROBILINOGEN NEG (NEG)
[2016-11-28 10:51] LABS: ALB/GLOB RATIO 1.2 (0.9-2); ALKALINE PHOSPHATASE 88 U/L (45-117)
--- NOTE | 2016-11-28 10:51 | DIAGNOSTIC IMAGING REPORT ---
CHEST 2 VIEWS ROUTINE HISTORY: weakness COMPARISON: Chest 11/08/2016. FINDINGS: No pneumothorax. Right midlung zone calcified granulomas. The heart remains enlarged. Poststernotomy changes and a left-sided pacemaker/defibrillator. The pulmonary edema has essentially resolved. No new focal lung consolidations to suggest pneumonia. Bibasilar interstitial thickening which is likely chronic. Lumbar spine fusion hardware is partially visualized. There is an old anterior wedge-shaped compression deformity at T12. IMPRESSION: Stable cardiomegaly. The pulmonary edema has resolved in the interval. Electronically signed by: Dinh Veras M.D. 11/28/2016 10:50 AM Dictated Date/Time: 11/28/2016 10:48 AM
[2016-11-28 11:01] LABS: REVIEW REQ? NO
[2016-11-28 11:26] LABS: URINE BACTERIA 1+ (NEG); URINE RBC 0-4 /hpf (0-4)
[2016-11-28 11:29] LABS: ZZUR CULT IF INDIC CLEAN CATCH YES
[2016-11-28] MEDS ORDERED: DEXTROSE 50% 50 ML SYR IV PRN (14:15)
[2016-11-28] MEDS ORDERED: GLUCOSE 10 TABS/TUBE PO PRN (14:15)
[2016-11-28] MEDS ORDERED: GLUCAGON FOR INJ 1 MG VIAL SQ PRN (14:15)
[2016-11-28] MEDS ORDERED: GLUCOSE 40% GEL 15 GM TUBE PO PRN (14:15)
[2016-11-28] MEDS ORDERED: ONDANSETRON INJ 2 MG/ML 2 ML VIAL IV PRN (14:15)
[2016-11-28] MEDS ORDERED: NITROGLYCERIN 0.4 MG SL PER TAB CHARGE UT PRN (14:15)
[2016-11-28] MEDS ORDERED: ALPRAZOLAM 0.5 MG TAB PO PRN (14:15)
[2016-11-28] MEDS ORDERED: HEPARIN SOD 5000 UNIT/0.5 ML CARP SQ SCH (14:15)
[2016-11-28] MEDS ORDERED: ACETAMINOPHEN 325 MG TAB PO PRN (14:15)
[2016-11-28 16:55] VITALS: BP 131/82; PULSE 80; TEMP 36.5; O2SAT 95
[2016-11-28 17:15] VITALS: BP 131/82; PULSE 80; TEMP 36.5; Ht 175.3 cm; Wt 91.3 kg
[2016-11-28] MEDS: INSULIN ASPART 100 UNITS/ML 3 ML PEN SC SCH ×2 (17:52→21:00)
--- NOTE | 2016-11-28 17:54 | History and Physical ---
History & Physical Date & Time of Service: Nov 28, 2016 at 14:15 Chief Complaint: Abnormal Lab Tests From [facility] Primary Care Physician: Sobeida Cabrera M.D. History of Present Illness Source: patient This is a 80 y/o male with PMHx of CAD s/p CABG, Severe systolic CHF EF<15% s/p BIV pacer defibrillator, HTN, DM2, PAF on eliquis, PVD, CKD stage 3, Hypothyroidism and other problems listed below presents to the ED due to abnormal outpatient labs. Pt was admitted to [facility] from 11/08-11/11 with acute CHF exacerbation. Pt was discharged home with new rx for Spironolactone and Lasix was increased from 40mg daily to 40mg BID. Pt reports that he has not been feeling well for the past couple weeks. He is complaining of feeling dizzy and off-balance when he ambulates. Patient did fall once while taking out the trash last week. He is now using a cane which helps with his stability. adds that patient has been very tired/weak and sleeps 18 hours of the day. He was experiencing some diarrhea last week however it seems to be improving. Pt was seen by the cardiology PA-C yesterday. Pt received a call this morning that his blood work was abnormal and he was to go to the ED for further evaluation. Pt denies fever/chills, diaphoresis, chest pain, palpitations, SOB, abd pain, N/V, bladder issues, LE edema or calf pain. In the ED, vitals are stable. Pt is afebrile with leukocytosis >14k. POC lactic acid 1.83. K+ 5.7. UA 1+ bacteria. CXR no acute process. Pt is currently comfortable and will be admitted for further evaluation and treatment. Past Medical/Surgical History Medical Problems: (1) CKD (chronic kidney disease) stage 3, GFR 30-59 ml/min Status: Chronic (2) Coronary artery disease Permanent Comment: s/p [place] s/p CABG x 1990 Status: Chronic (3) Diabetes mellitus, type II Status: Chronic (4) Dyslipidemia Status: Chronic (5) History of ventricular tachycardia Status: Chronic (6) Hypertension Status: Chronic (7) PAD (peripheral artery disease) Permanent Comment: s/p left DESIGN ARCHITECT / SFA / popliteal arthrectomy and angioplasty left SFA stent Status: Chronic (8) Spinal stenosis of lumbar region Status: Chronic (9) Systolic CHF, chronic Permanent Comment: LVEF 15-20% by echo 2002 LVEF 25-29% by echo 06/08/13 Status: Chronic Surgical Problems: (1) Status post cardiac pacemaker procedure Permanent Comment: initially had single chamber pacer AICD, upgraded to BiV device in 2008, generator change in 03/2015 Status: Chronic (2) Status post coronary artery bypass grafting Status: Chronic (3) Status post lumbar surgery Status: Chronic (4) Status post tonsillectomy Status: Chronic Family History FH: diabetes mellitus FATHER FH: lung cancer FATHER Social History Smoking Status: Former Smoker (30 pack year history; quit 1989) Alcohol Use: none Drug Use: none Marital Status: Housing status: lives with family Occupational Status: retired Immunizations History of Influenza Vaccine: Yes Influenza Vaccine Date: Jun 20, 2015 History of Tetanus Vaccine?: Yes Tetanus Immunization Date: Jun 09, 2013 History of Pneumococcal: Yes Pneumococcal Date: Feb 21, 2015 History of Hepatitis B Vaccine: No Multi-Drug Resistant Organisms History of MDRO: No Allergies Coded Allergies: Ciprofloxacin (Verified Allergy, Unknown, UNKNOWN, 11/08/16) FROM ENDO PRE-PROCEDURE ORDERSET Home Medications Scheduled Acetaminophen (Tylenol), 1,000 MG PO BID Amiodarone HCl (Amiodarone HCl), 200 MG PO BID Apixaban (Eliquis), 2.5 MG PO BID Calcitriol (Calcitriol), 0.25 MCG PO QAM Cholecalciferol (Vitamin D3), 2,000 INTUNIT PO QPM Clopidogrel (Plavix), 75 MG PO QAM Furosemide (Furosemide), 40 MG PO BID17 Glimepiride (Amaryl), 1 MG PO QAM Levothyroxine Sodium (Levothyroxine Sodium), 25 MCG PO QAM Lisinopril (Zestril), 5 MG PO QPM Potassium Chloride (Klor-Con M20), 20 MEQ PO QAM Pravastatin Sodium (Pravastatin Sodium), 80 MG PO QPM Spironolactone (Spironolactone), 12.5 MG PO QAM Scheduled PRN Alprazolam (Xanax), 1 MG PO BID PRN for Anxiety Nitroglycerin (Nitrostat), 0.4 MG UT UD PRN for Chest Pain Review of Systems Constitutional: + fatigue, + weakness, No chills, No fever, No sweats Eyes: No worsening of vision ENT: No hearing loss, No nasal symptoms Respiratory: No cough, No shortness of breath Cardiovascular: No chest pain, No claudication, No edema, No palpitations Abdomen: + diarrhea (resolving), No constipation, No nausea, No pain, No vomiting Musculoskeletal: No calf pain, No swelling Genitourinary - Male: No dysuria Neurologic: + weakness Psychiatric: No depression symptoms Endocrine: + fatigue Hematologic / Lymphatic: No abnormal bleeding/bruising Integumentary: No new/changing skin lesions Physical Exam Vital Signs Date Time Temp Pulse Resp B/P Pulse Ox O2 Delivery O2 Flow Rate FiO2 11/28/16 13:43 73 18 100/66 94 Room Air 11/28/16 13:36 70 11/28/16 12:01 70 16 101/51 97 Room Air 11/28/16 10:14 72 11/28/16 09:48 36.7 74 103/61 97 Room Air General Appearance: WD/WN, no apparent distress, + pertinent finding (Pt is laying in bed with at bedside ) Head: normocephalic, atraumatic Eyes: normal inspection ENT: hearing grossly normal Neck: supple Respiratory/Chest: chest non-tender, lungs clear, normal breath sounds, no respiratory distress Cardiovascular: regular rate, rhythm, no edema, no murmur Abdomen/GI: normal bowel sounds, non tender, soft Back: normal inspection Extremities/Musculoskelatal: normal inspection, no calf tenderness, no pedal edema Neurologic/Psych: alert, normal mood/affect, oriented x 3 Skin: normal color, warm/dry Diagnostics Laboratory Results Results Past 24 Hours Test 11/28/16 10:10 11/28/16 10:20 11/28/16 13:21 11/28/16 14:01 Range/Units Urine Color YELLOW Urine Appearance CLEAR CLEAR Urine pH 5.5 4.5-7.5 Urine Specific [place] 1.020 1.000-1.030 Urine Protein NEG NEG Urine Glucose (UA) NEG NEG Urine Ketones NEG NEG Urine Occult Blood NEG NEG Urine Nitrite NEG NEG Urine Bilirubin NEG NEG Urine Urobilinogen NEG NEG Urine Leukocyte Esterase SMALL NEG Urine RBC 0-4 0-4 /hpf Urine WBC 5-10 0-5 /hpf Urine Epithelial Cells 0-5 0-5 /lpf Urine Bacteria 1+ NEG Urine Hyaline Casts 5-10 0-5 /lpf White Blood Count 14.18 4.8-10.8 K/uL Red Blood Count 4.48 4.7-6.1 M/uL Hemoglobin 15.0 14.0-18.0 g/dL Hematocrit 42.9 42-52 % Mean Corpuscular Volume 95.8 80-100 fL Mean Corpuscular Hemoglobin 33.5 25-34 pg Mean Corpuscular Hemoglobin Concent 35.0 32-36 g/dl Platelet Count 224 130-400 K/uL Mean Platelet Volume 9.3 7.4-10.4 fL Neutrophils (%) (Auto) 83.3 % Lymphocytes (%) (Auto) 5.1 % Monocytes (%) (Auto) 9.6 % Eosinophils (%) (Auto) 0.9 % Basophils (%) (Auto) 0.2 % Neutrophils # (Auto) 11.81 1.4-6.5 K/uL Lymphocytes # (Auto) 0.72 1.2-3.4 K/uL Monocytes # (Auto) 1.36 0.11-0.59 K/uL Eosinophils # (Auto) 0.13 0-0.5 K/uL Basophils # (Auto) 0.03 0-0.2 K/uL RDW Standard Deviation 47.7 36.4-46.3 fL RDW Coefficient of Variation 13.7 11.5-14.5 % Immature Granulocyte % (Auto) 0.9 % Immature Granulocyte # (Auto) 0.13 0.00-0.02 K/uL Prothrombin Time 11.1 9.0-12.0 SECONDS Prothromb Time International Ratio 1.0 0.9-1.1 Activated Partial Thromboplast Time 28.0 21.0-31.0 SECONDS Partial Thromboplastin Ratio 1.1 Sodium Level 137 136-145 mmol/L Potassium Level 5.7 3.5-5.1 mmol/L Chloride Level 103 98-107 mmol/L Carbon Dioxide Level 26 21-32 mmol/L Anion Gap 8.0 3-11 mmol/L Blood Urea Nitrogen 81 7-18 mg/dl Creatinine 3.30 0.60-1.40 mg/dl Estimated GFR () 19.4 Estimated GFR (Non- 16.7 BUN/Creatinine Ratio 24.7 10-20 Random Glucose 168 70-99 mg/dl Calcium Level 8.9 8.5-10.1 mg/dl Total Bilirubin 0.7 0.2-1 mg/dl Aspartate Amino Transf (AST/SGOT) 87 15-37 U/L Alanine Aminotransferase (ALT/SGPT) 127 12-78 U/L Alkaline Phosphatase 88 45-117 U/L Troponin I < 0.015 0-0.045 ng/ml Total Protein 7.0 6.4-8.2 gm/dl Albumin 3.8 3.4-5.0 gm/dl Globulin 3.2 2.5-4.0 gm/dl Albumin/Globulin Ratio 1.2 0.9-2 Bedside Lactic Acid Venous 1.83 0.90-1.70 mmol/L Microbiology Results 11/28/16 Urine Culture, Received Pending Diagnostic Radiology CXR IMPRESSION: Stable cardiomegaly. The pulmonary edema has resolved in the interval. EKG EKG: vent-paced rhythm with no acute ischemic changes; no change when compared to EKG from 11/10/16 Impression Assessment and Plan MIREILLE ON CKD STAGE 3 pt directed to the hospital due to abnormal outpatient labs -admit to med/surg -creatinine 3.3; baseline around 2.2; likely elevated due to recent increase in diuretics/dehydration from recent GI losses -hold Lasix, spironolactone and lisinopril -start gentle IVF -consider nephro consult -monitor HYPERKALEMIA -K+ 5.7 -EKG: no peaked T waves -hold potassium supplement -monitor with daily prp DIARRHEA: RESOLVING -may be contributing to [place] -obtain stool cx and C.diff -cont gentle IVF -check mag LACTIC ACIDOSES -POC lactic acid 1.83; check lab value -pt also has leukocytosis >14k -? infection; unclear source -UA 1+ bacteria; CXR no consolidation or effusions -will check stool cx -hold off on empiric abx for now ISCHEMIC CARDIOMYOPATHY -EF <15% -hold Lasix and Spironolactone for now due to [place] -monitor for fluid overload PERIPHERAL VASCULAR DISEASE -s/p fem-pop bypass surgery PAROXYSMAL AFIB -currently in paced rhythm -cont Amiodarone and Eliquis -monitor DM2 -recent A1C 6.4 -hold glimepiride -SSI coverage -BSG AC HS -consistent carb diet HTN -controlled -hold lisinopril, spironolactone and Lasix with renal insufficiency DYSLIPIDEMIA -cont statin DVT PROPHYLAXIS -cont Eliquis CODE STATUS -FULL CODE per discussion with patient upon admission DISPO Pt seen in collaboration with Dr. Ortiz. Please see his addendum for further details. Thanks! -Of note: patient will be followed by Dr. Boss starting tomorrow AM. Attending Addendum Pt was seen and examined. 80 y/o male with PMHx of CAD s/p CABG, Severe systolic CHF EF<15% s/p BIV pacer defibrillator, HTN, DM2, PAF on eliquis, PVD, CKD stage 3, Hypothyroidism presents to the ED after he received a call from the cardiology clinic to go to the ED due to abnormal outpatient labs. He was recently discharged from [facility] for CHF exacerbation. His Spironolactone and Lasix was increased during last admission. Pt said that he has not been feeling well lately. He said that he had diarrhea last week that improved. denies any chest pain, palpitation, dizziness and SOB. General- No acute distress Head- atraumatic Eyes- PERRL, EOMI ENT- oropharynx clear Neck- supple, no JVD Lungs- clear to auscultation, no wheezing Heart- regular rhythm; no murmur Abdomen- normal bowel sounds, soft Extremities- no calf tenderness Neuro- alert, oriented x 3; PERRL, EOMI A/P MIREILLE ON CKD STAGE 3 -creatinine on admission 3.3; baseline around 2.2; likely elevated due to recent increase in diuretics/dehydration from recent GI losses -hold Lasix, spironolactone and lisinopril -start gentle IVF -consider nephro consult if creatine worsening -monitor BMP HYPERKALEMIA -K+ 5.7 - Possible due to [place] -EKG: no peaked T waves - will not give Kayexalate due to diarrhea -hold potassium supplement and spironolactone - Will check BMP later - on medical floor, if K increases or pt develops any mild distress, will transfer to telemetry - Asymptomatic currently - Will monitor very closely Imaging, Lab, EKG reviewed by me. Please refer to Kristyn URRUTIA's documentation for other problems. Donaldo Ortiz MD VTE Prophylaxis VTE Risk Assessment Done? Y/N: Yes Risk Level: Moderate
[2016-11-28] MEDS ORDERED: SODIUM CHLORIDE 0.9% 1000ML 1,000 ML IV SCH (18:00)
[2016-11-28 21:03] VITALS: BP 124/79; PULSE 72
[2016-11-28] MEDS: AMIODARONE 200 MG TAB PO SCH (21:09)
[2016-11-28] MEDS: PRAVASTATIN SOD 40 MG TAB PO SCH (21:09)
[2016-11-28] MEDS: APIXABAN 2.5 MG TAB PO SCH (21:09)
[2016-11-28] MEDS: CHOLECALCIFEROL 1000 INTER.UNIT TAB PO SCH (21:10)
[2016-11-28 23:59] VITALS: BP 113/72; PULSE 71; TEMP 36.3; O2SAT 96
[2016-11-29 00:46] LABS: BUN/CREATININE RATIO 24.3 (10-20); CALCIUM 8.4 mg/dl (8.5-10.1); POTASSIUM 5.2 mmol/L (3.5-5.1)
[2016-11-29] MEDS: LEVOTHYROXINE 25 MCG TAB PO SCH (06:21)
[2016-11-29 07:26] VITALS: BP 107/67; PULSE 72; TEMP 37; O2SAT 94
[2016-11-29 08:17] LABS: HEMATOCRIT 43.3 % (42-52); MEAN CELL VOLUME 96.9 fL (80-100); MEAN CORPUSCULAR HEMOGLOBIN 32.2 pg (25-34); MEAN CORPUSCULAR HGB CONC 33.3 g/dl (32-36); MEAN PLATELET VOLUME 9.4 fL (7.4-10.4); PLATELET COUNT 219 K/uL (130-400); RED BLOOD COUNT 4.47 M/uL (4.7-6.1); WHITE BLOOD COUNT 13.49 K/uL (4.8-10.8)
[2016-11-29] MEDS: CLOPIDOGREL BISULFATE 75 MG TAB PO SCH (08:27)
[2016-11-29] MEDS: APIXABAN 2.5 MG TAB PO SCH ×2 (08:27→20:45)
[2016-11-29] MEDS: AMIODARONE 200 MG TAB PO SCH ×2 (08:27→20:46)
[2016-11-29] MEDS: CALCITRIOL 0.25 MCG CAP PO SCH (08:27)
[2016-11-29] MEDS: INSULIN ASPART 100 UNITS/ML 3 ML PEN SC SCH ×4 (08:40→20:42)
[2016-11-29 08:59] LABS: BUN/CREATININE RATIO 25.1 (10-20); CREATININE 2.7 mg/dl (0.60-1.40); MAGNESIUM 2.8 mg/dl (1.8-2.4); POTASSIUM 5.2 mmol/L (3.5-5.1)
[2016-11-29 09:18] LABS: ESTIMATED AVERAGE GLUCOSE 160 mg/dl; HA1C FLAG Normal (Normal)
--- NOTE | 2016-11-29 15:32 | Progress Note ---
Internal Med Progress Note Date of Service: Nov 29, 2016. Provider Documentation: SUBJECTIVE: Patient is doing better today Says feels less tired. Diarrhea has almost resolved- 2 times /day, consistency better No nausea, vomiting, abdominal pain, headaches, dizziness, fever, chills, cough OBJECTIVE: Vital Signs-as noted below Exam: General Appearance: AAOX3, no distress Neck: supple Respiratory/Chest: chest non-tender, lungs clear, normal breath sounds, no respiratory distress Cardiovascular: regular rate, rhythm, no edema, no murmur Abdomen/GI: normal bowel sounds, non tender, soft Extremities/Musculoskelatal: No edema Neurologic/Psych: alert, normal mood/affect, oriented x 2 Lab data as noted below. ASSESSMENT & PLAN: MIREILLE ON CKD STAGE 3 : Improving Patient directed to the hospital due to abnormal outpatient labs - elevated creatinine 3.3 on presentation -Baseline creatinine : 2.2 -Likely secondary to increase in diuretics, dehydrations secondary to GI losses - diarrhea -S/P IV Fluids x 1 bag. Hold lisinopril, Lasix, Spironolactone -Monitor HYPERKALEMIA -Improving Secondary to MIRE[place]LE/K supplements -K+ 5.7 -EKG: no peaked T waves -hold potassium supplement -Monitor DIARRHEA: Resolving -may be contributing to MIRE[place] -obtain stool cx and C.diff - not collected yet ISCHEMIC CARDIOMYOPATHY -EF <15% -hold Lasix and Spironolactone for now due to MIRE[place] -monitor for fluid overload PERIPHERAL VASCULAR DISEASE -s/p fem-pop bypass surgery PAROXYSMAL AFIB -currently in paced rhythm -cont Amiodarone and Eliquis -monitor DM2 -recent A1C 6.4 -hold glimepiride -SSI coverage -BSG AC HS -consistent carb diet HTN -controlled -hold lisinopril, spironolactone and Lasix with renal insufficiency DYSLIPIDEMIA -cont statin DVT PROPHYLAXIS -cont Eliquis CODE STATUS -FULL CODE per discussion with patient upon admission DISPO PT/OT ordered Probable dc in 1-2 days Vital Signs: Date Time Temp Pulse Resp B/P Pulse Ox O2 Delivery O2 Flow Rate FiO2 11/29/16 08:15 Room Air 11/29/16 07:26 37.0 72 18 107/67 94 11/29/16 00:05 Room Air 11/28/16 23:59 36.3 71 18 113/72 96 Room Air 11/28/16 21:03 72 18 124/79 11/28/16 20:05 Room Air 11/28/16 17:15 36.5 80 18 131/82 Room Air 11/28/16 16:55 36.5 80 18 131/82 95 Room Air 11/28/16 15:45 70 17 94 11/28/16 15:30 94/60 Lab Results: Results Past 24 Hours Test 11/28/16 16:33 11/28/16 21:00 11/28/16 23:58 11/29/16 07:15 Range/Units Bedside Glucose 137 157 86 70-99 mg/dl Sodium Level 141 136-145 mmol/L Potassium Level 5.2 3.5-5.1 mmol/L Chloride Level 106 98-107 mmol/L Carbon Dioxide Level 27 21-32 mmol/L Anion Gap 8.0 3-11 mmol/L Blood Urea Nitrogen 73 7-18 mg/dl Creatinine 3.00 0.60-1.40 mg/dl Est Creatinine Clear Calc Drug Dose 21.8 ml/min Estimated GFR () 21.7 Estimated GFR (Non- 18.8 BUN/Creatinine Ratio 24.3 10-20 Random Glucose 109 70-99 mg/dl Calcium Level 8.4 8.5-10.1 mg/dl Test 11/29/16 07:35 11/29/16 11:22 Range/Units White Blood Count 13.49 4.8-10.8 K/uL Red Blood Count 4.47 4.7-6.1 M/uL Hemoglobin 14.4 14.0-18.0 g/dL Hematocrit 43.3 42-52 % Mean Corpuscular Volume 96.9 80-100 fL Mean Corpuscular Hemoglobin 32.2 25-34 pg Mean Corpuscular Hemoglobin Concent 33.3 32-36 g/dl RDW Standard Deviation 49.1 36.4-46.3 fL RDW Coefficient of Variation 13.7 11.5-14.5 % Platelet Count 219 130-400 K/uL Mean Platelet Volume 9.4 7.4-10.4 fL Sodium Level 139 136-145 mmol/L Potassium Level 5.2 3.5-5.1 mmol/L Chloride Level 105 98-107 mmol/L Carbon Dioxide Level 26 21-32 mmol/L Anion Gap 8.0 3-11 mmol/L Blood Urea Nitrogen 68 7-18 mg/dl Creatinine 2.70 0.60-1.40 mg/dl Est Creatinine Clear Calc Drug Dose 24.4 ml/min Estimated GFR () 24.7 Estimated GFR (Non- 21.3 BUN/Creatinine Ratio 25.1 10-20 Random Glucose 87 70-99 mg/dl Estimated Average Glucose 160 mg/dl Hemoglobin A1c 7.2 4.5-5.6 % Calcium Level 9.0 8.5-10.1 mg/dl Magnesium Level 2.8 1.8-2.4 mg/dl Chemistry Specimen Hemolysis Bedside Glucose 125 70-99 mg/dl
[2016-11-29 15:49] VITALS: BP 122/75; PULSE 71; TEMP 37.1; O2SAT 96
[2016-11-29] MEDS: CHOLECALCIFEROL 1000 INTER.UNIT TAB PO SCH (20:45)
[2016-11-29] MEDS: PRAVASTATIN SOD 40 MG TAB PO SCH (20:45)
[2016-11-30 01:00] VITALS: BP 127/70; PULSE 65; TEMP 37.3; O2SAT 96
[2016-11-30] MEDS: LEVOTHYROXINE 25 MCG TAB PO SCH (06:00)
[2016-11-30 07:26] LABS: HEMATOCRIT 37.8 % (42-52); MEAN CELL VOLUME 94.3 fL (80-100); MEAN CORPUSCULAR HEMOGLOBIN 32.2 pg (25-34); MEAN CORPUSCULAR HGB CONC 34.1 g/dl (32-36); MEAN PLATELET VOLUME 8.8 fL (7.4-10.4); PLATELET COUNT 160 K/uL (130-400); RED BLOOD COUNT 4.01 M/uL (4.7-6.1); WHITE BLOOD COUNT 11.33 K/uL (4.8-10.8)
[2016-11-30 07:42] VITALS: BP 109/74; PULSE 73; TEMP 37.1; O2SAT 94
[2016-11-30 07:53] LABS: BUN/CREATININE RATIO 21.9 (10-20); CALCIUM 9.2 mg/dl (8.5-10.1); CREATININE 2.2 mg/dl (0.60-1.40); POTASSIUM 5.1 mmol/L (3.5-5.1)
[2016-11-30] MEDS: CALCITRIOL 0.25 MCG CAP PO SCH (08:23)
[2016-11-30] MEDS: AMIODARONE 200 MG TAB PO SCH ×2 (08:24→21:47)
[2016-11-30] MEDS: CLOPIDOGREL BISULFATE 75 MG TAB PO SCH (08:24)
[2016-11-30] MEDS: APIXABAN 2.5 MG TAB PO SCH ×2 (08:24→21:47)
[2016-11-30] MEDS: INSULIN ASPART 100 UNITS/ML 3 ML PEN SC SCH ×4 (08:27→21:48)
--- NOTE | 2016-11-30 09:47 | Progress Note ---
Internal Med Progress Note Date of Service: Nov 30, 2016. Provider Documentation: SUBJECTIVE: Patient is doing better today. Diarrhea has resolved. No nausea, vomiting, abdominal pain, headaches, dizziness, fever, chills, cough OBJECTIVE: Vital Signs-as noted below Exam: General Appearance: AAOX3, no distress Neck: supple Respiratory/Chest: chest non-tender, lungs clear, normal breath sounds, no respiratory distress Cardiovascular: regular rate, rhythm, no edema, no murmur Abdomen/GI: normal bowel sounds, non tender, soft Extremities/Musculoskelatal: No edema Neurologic/Psych: alert, normal mood/affect, oriented x 2 Lab data as noted below. ASSESSMENT & PLAN: MIREILLE ON CKD STAGE 3 : Improved, near baseline Patient directed to the hospital due to abnormal outpatient labs - elevated creatinine 3.3 on presentation -Baseline creatinine : 2.2 -Likely secondary to increase in diuretics, dehydrations secondary to GI losses - diarrhea -S/P IV Fluids x 1 bag on day 1. Hold lisinopril, Lasix, Spironolactone -Monitor HYPERKALEMIA - Improved Secondary to [place]RE[place]/K supplements -K+ 5.7--> 5.1 -EKG: no peaked T waves -Discontinue potassium supplement -Monitor DIARRHEA: Resolved -may be contributing to [place] -obtain stool cx and C.diff - not collected yet ISCHEMIC CARDIOMYOPATHY -EF <15% -Hold Lasix and Spironolactone for now due to [place] -monitor for fluid overload PERIPHERAL VASCULAR DISEASE -S/P fem-pop bypass surgery PAROXYSMAL AFIB -currently in paced rhythm -cont Amiodarone and Eliquis -monitor DM2 -Recent A1C 6.4 -hold glimepiride -SSI coverage -BSG AC HS -consistent carb diet HTN -controlled -hold lisinopril, spironolactone and Lasix with renal insufficiency DYSLIPIDEMIA -cont statin DVT PROPHYLAXIS -cont Eliquis CODE STATUS -FULL CODE per discussion with patient upon admission DISPO PT/OT - awaiting inputs Vital Signs: Date Time Temp Pulse Resp B/P Pulse Ox O2 Delivery O2 Flow Rate FiO2 11/30/16 08:30 Room Air 11/30/16 07:42 37.1 73 18 109/74 94 Room Air 11/30/16 01:00 37.3 65 18 127/70 96 Room Air 11/30/16 00:05 Room Air 11/29/16 16:15 Room Air 11/29/16 15:49 37.1 71 18 122/75 96 Room Air Lab Results: Results Past 24 Hours Test 11/29/16 11:22 11/29/16 16:14 11/29/16 20:06 11/30/16 06:49 Range/Units Bedside Glucose 125 111 155 70-99 mg/dl White Blood Count 11.33 4.8-10.8 K/uL Red Blood Count 4.01 4.7-6.1 M/uL Hemoglobin 12.9 14.0-18.0 g/dL Hematocrit 37.8 42-52 % Mean Corpuscular Volume 94.3 80-100 fL Mean Corpuscular Hemoglobin 32.2 25-34 pg Mean Corpuscular Hemoglobin Concent 34.1 32-36 g/dl RDW Standard Deviation 46.9 36.4-46.3 fL RDW Coefficient of Variation 13.5 11.5-14.5 % Platelet Count 160 130-400 K/uL Mean Platelet Volume 8.8 7.4-10.4 fL Sodium Level 139 136-145 mmol/L Potassium Level 5.1 3.5-5.1 mmol/L Chloride Level 107 98-107 mmol/L Carbon Dioxide Level 27 21-32 mmol/L Anion Gap 5.0 3-11 mmol/L Blood Urea Nitrogen 48 7-18 mg/dl Creatinine 2.20 0.60-1.40 mg/dl Est Creatinine Clear Calc Drug Dose 29.9 ml/min Estimated GFR () 31.6 Estimated GFR (Non- 27.3 BUN/Creatinine Ratio 21.9 10-20 Random Glucose 99 70-99 mg/dl Calcium Level 9.2 8.5-10.1 mg/dl Test 11/30/16 07:35 Range/Units Bedside Glucose 108 70-99 mg/dl
[2016-11-30 10:52] VITALS: O2SAT 94
[2016-11-30 16:00] VITALS: O2SAT 93
[2016-11-30 16:42] VITALS: BP 120/70; PULSE 77; TEMP 36.8; O2SAT 93
[2016-11-30] MEDS: CHOLECALCIFEROL 1000 INTER.UNIT TAB PO SCH (21:48)
[2016-11-30] MEDS: PRAVASTATIN SOD 40 MG TAB PO SCH (21:48)
[2016-11-30 23:24] VITALS: BP 119/82; PULSE 71; TEMP 36.9; O2SAT 96
[2016-12-01] MEDS: LEVOTHYROXINE 25 MCG TAB PO SCH (06:09)
[2016-12-01 07:20] VITALS: BP 108/72; PULSE 70; TEMP 37; O2SAT 96
[2016-12-01] MEDS: APIXABAN 2.5 MG TAB PO SCH (08:00)
[2016-12-01] MEDS: AMIODARONE 200 MG TAB PO SCH (08:00)
[2016-12-01] MEDS: CLOPIDOGREL BISULFATE 75 MG TAB PO SCH (08:00)
[2016-12-01] MEDS: CALCITRIOL 0.25 MCG CAP PO SCH (08:00)
[2016-12-01] MEDS: INSULIN ASPART 100 UNITS/ML 3 ML PEN SC SCH (08:03)
[2016-12-01 08:21] LABS: BUN/CREATININE RATIO 22.1 (10-20); CREATININE 1.9 mg/dl (0.60-1.40)
[2016-12-01 09:08] VITALS: O2SAT 96
--- NOTE | 2016-12-01 09:38 | Progress Note ---
Internal Med Progress Note Date of Service: Dec 01, 2016. Provider Documentation: SUBJECTIVE: Patient is doing better today and eager to be discharged Diarrhea has resolved. No nausea, vomiting, abdominal pain, headaches, dizziness, fever, chills, cough OBJECTIVE: Vital Signs-as noted below Exam: General Appearance: AAOX3, no distress Neck: supple Respiratory/Chest: chest non-tender, lungs clear, normal breath sounds, no respiratory distress Cardiovascular: regular rate, rhythm, no edema, no murmur Abdomen/GI: normal bowel sounds, non tender, soft Extremities/Musculoskelatal: No edema Neurologic/Psych: alert, normal mood/affect, oriented x 2 Lab data as noted below. ASSESSMENT & PLAN: MIREILLE ON CKD STAGE 3 : Resolved, near baseline Patient directed to the hospital due to abnormal outpatient labs - elevated creatinine 3.3 on presentation--> 1.90 today -Baseline creatinine : 2.2 -Likely secondary to recent increase in diuretics, dehydration secondary to GI losses- diarrhea -S/P IV Fluids x 1 bag on day 1- none after that due to EF <15%. Held lisinopril, Lasix, Spironolactone -Will continue to hold diuretics today, tomorrow and re start on 12/03/16 at reduced dose of lasix- 40 mg daily and continue with spironolactone HYPERKALEMIA - Improved Secondary to [place]/K supplements -K+ 5.7--> 5.1-->5.0 today -EKG: no peaked T waves -Discontinued potassium supplement -Monitor DIARRHEA: Resolved -may be contributing to [place] -obtain stool cx and C.diff - not collected yet ISCHEMIC CARDIOMYOPATHY -EF <15% -Hold Lasix and Spironolactone for now due to MIRE[place] . Will continue to hold diuretics today, tomorrow and re start on 12/03/16 at reduced dose of lasix- 40 mg daily and continue with spironolactone PERIPHERAL VASCULAR DISEASE -S/P fem-pop bypass surgery PAROXYSMAL AFIB -currently in paced rhythm -cont Amiodarone and Eliquis -monitor DM2 -Recent A1C 6.4 -hold glimepiride -SSI coverage -BSG AC HS -consistent carb diet HTN -controlled -hold lisinopril, spironolactone and Lasix with renal insufficiency as above DYSLIPIDEMIA -cont statin DVT PROPHYLAXIS -cont Eliquis CODE STATUS -FULL CODE per discussion with patient upon admission DISPO PT/OT - Cleared for discharge to home Vital Signs: Date Time Temp Pulse Resp B/P Pulse Ox O2 Delivery O2 Flow Rate FiO2 12/01/16 09:08 96 Room Air 12/01/16 08:00 Room Air 12/01/16 07:20 37.0 70 18 108/72 96 Room Air 11/30/16 23:34 Room Air 11/30/16 23:24 36.9 71 18 119/82 96 Room Air 11/30/16 16:42 36.8 77 18 120/70 93 Room Air 11/30/16 16:00 93 Room Air 11/30/16 10:52 94 Room Air Lab Results: Results Past 24 Hours Test 11/30/16 11:45 11/30/16 16:19 11/30/16 19:53 12/01/16 07:15 Range/Units Bedside Glucose 126 200 154 70-99 mg/dl Sodium Level 139 136-145 mmol/L Potassium Level 5.0 3.5-5.1 mmol/L Chloride Level 106 98-107 mmol/L Carbon Dioxide Level 26 21-32 mmol/L Anion Gap 7.0 3-11 mmol/L Blood Urea Nitrogen 42 7-18 mg/dl Creatinine 1.90 0.60-1.40 mg/dl Est Creatinine Clear Calc Drug Dose 34.6 ml/min Estimated GFR () 37.7 Estimated GFR (Non- 32.6 BUN/Creatinine Ratio 22.1 10-20 Random Glucose 117 70-99 mg/dl Calcium Level 9.0 8.5-10.1 mg/dl Test 12/01/16 07:41 Range/Units Bedside Glucose 147 70-99 mg/dl
[2016-12-01] MEDS ORDERED: LSX40 PO (09:39)
--- NOTE | 2016-12-01 09:45 | Discharge Summary ---
Discharge Summary Date of Service Dec 01, 2016. Discharge Summary Admission Date: Nov 28, 2016 at 14:15 Discharge Date: Dec 01, 2016 Discharge Disposition: Home with services Principal Diagnosis: 1. MIREILLE on CKD-III 2. Hyperkalemia secondary to k supplements/MIREILLE Secondary Diagnoses/Problems: 1. 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 HTN 3. Paroxsymal Atrial fibrillation 4. DM-2 5. Dyslipidemia Procedures: CXR IV fluids x 1 bag PT/OT Consultations: None Pending Studies/Follow-Up: Instructions / Follow-Up Instructions / Follow-Up MEDICATION CHANGES: 1. Hold Lasix, Spironolactone today, tomorrow and restart from 12/03/16 2. Restart Lasix at reduced dose- 20 mg PO twice a day than 40 mg prior to hospitalization, continue spironolactone at the same dose 3. Discontinued potassium supplements due to high levels while in hospital 4. Discontinued lisinopril due to elevated creatinine MONITOR BMP to be drawn during next office visit FOLLOW UP 1. Follow up with PCP, Dr Cabrera on 12/05/16 at 1:00 PM Medication Reconciliation Changed Medications: Furosemide (Furosemide) 40 Mg Tab 20 MG PO BID17, #60 TAB 2 Refills (Changed from: 40 MG) Continued Medications: Acetaminophen (Tylenol) 500 Mg Tab 1000 MG PO BID, TAB Alprazolam (Xanax) 1 Mg Tab 1 MG PO BID PRN for Anxiety, TAB Amiodarone HCl (Amiodarone HCl) 200 Mg Tab 200 MG PO BID, TAB Apixaban (Eliquis) 2.5 Mg Tab 2.5 MG PO BID, TAB Calcitriol (Calcitriol) 0.25 Mcg Cap 0.25 MCG PO QAM Cholecalciferol (Vitamin D3) 2,000 Unit Cap 2000 INTUNIT PO QPM Clopidogrel (Plavix) 75 Mg Tab 75 MG PO QAM, TAB Glimepiride (Amaryl) 1 Mg Tab 1 MG PO QAM, TAB Levothyroxine Sodium (Levothyroxine Sodium) 25 Mcg Tab 25 MCG PO QAM Nitroglycerin (Nitrostat) 0.4 Mg Tab 0.4 MG UT UD PRN for Chest Pain, BTL PLACE ONE TABLET UNDER THE TONGUE EVERY 5 MINUTES FOR UP TO 3 DOSES IF NEEDED FOR CHEST PAIN. Pravastatin Sodium (Pravastatin Sodium) 80 Mg Tab 80 MG PO QPM Spironolactone (Spironolactone) 25 Mg Tab 12.5 MG PO QAM for 30 Days, #15 TAB 2 Refills Discontinued Medications: Lisinopril (Zestril) 10 Mg Tab 5 MG PO QPM, TAB Potassium Chloride (Klor-Con M20) 20 Meq Tabcr 20 MEQ PO QAM, #30 2 Refills Admission Information HPI (per Admitting provider): This is a 80 y/o male with PMHx of CAD s/p CABG, Severe systolic CHF EF<15% s/p BIV pacer defibrillator, HTN, DM2, PAF on eliquis, PVD, CKD stage 3, Hypothyroidism and other problems listed below presents to the ED due to abnormal outpatient labs. Pt was admitted to [facility] from 11/08-11/11 with acute CHF exacerbation. Pt was discharged home with new rx for Spironolactone and Lasix was increased from 40mg daily to 40mg BID. Pt reports that he has not been feeling well for the past couple weeks. He is complaining of feeling dizzy and off-balance when he ambulates. Patient did fall once while taking out the trash last week. He is now using a cane which helps with his stability. adds that patient has been very tired/weak and sleeps 18 hours of the day. He was experiencing some diarrhea last week however it seems to be improving. Pt was seen by the cardiology PA-C yesterday. Pt received a call this morning that his blood work was abnormal and he was to go to the ED for further evaluation. Pt denies fever/chills, diaphoresis, chest pain, palpitations, SOB, abd pain, N/V, bladder issues, LE edema or calf pain. In the ED, vitals are stable. Pt is afebrile with leukocytosis >14k. POC lactic acid 1.83. K+ 5.7. UA 1+ bacteria. CXR no acute process. Pt is currently comfortable and will be admitted for further evaluation and treatment. Physical Exam (per Admitting): General Appearance: WD/WN, no apparent distress, + pertinent finding (Pt is laying in bed with at bedside ) Head: normocephalic, atraumatic Eyes: normal inspection ENT: hearing grossly normal Neck: supple Respiratory/Chest: chest non-tender, lungs clear, normal breath sounds, no respiratory distress Cardiovascular: regular rate, rhythm, no edema, no murmur Abdomen/GI: normal bowel sounds, non tender, soft Back: normal inspection Extremities/Musculoskelatal: normal inspection, no calf tenderness, no pedal edema Neurologic/Psych: alert, normal mood/affect, oriented x 3 Skin: normal color, warm/dry Hospital Course MIREILLE ON CKD STAGE 3 : Resolved, near baseline Patient directed to the hospital due to abnormal outpatient labs - elevated creatinine 3.3 on presentation--> 1.90 today -Baseline creatinine : 2.2 -Likely secondary to recent increase in diuretics, dehydration secondary to GI losses- diarrhea -S/P IV Fluids x 1 bag on day 1- none after that due to EF <15%. Held lisinopril, Lasix, Spironolactone -Will continue to hold diuretics today, tomorrow and re start on 12/03/16 at reduced dose of lasix- 40 mg daily and continue with spironolactone HYPERKALEMIA - Improved Secondary to MIREILLE/K supplements -K+ 5.7--> 5.1-->5.0 today -EKG: no peaked T waves -Discontinued potassium supplement -Monitor DIARRHEA: Resolved -may be contributing to MIREILLE -obtain stool cx and C.diff - not collected yet ISCHEMIC CARDIOMYOPATHY -EF <15% -Hold Lasix and Spironolactone for now due to MIREILLE . Will continue to hold diuretics today, tomorrow and re start on 12/03/16 at reduced dose of lasix- 40 mg daily and continue with spironolactone PERIPHERAL VASCULAR DISEASE -S/P fem-pop bypass surgery PAROXYSMAL AFIB -currently in paced rhythm -cont Amiodarone and Eliquis -monitor DM2 -Recent A1C 6.4 -hold glimepiride -SSI coverage -BSG AC HS -consistent carb diet HTN -controlled -hold lisinopril, spironolactone and Lasix with renal insufficiency as above DYSLIPIDEMIA -cont statin DVT PROPHYLAXIS -cont Eliquis CODE STATUS -FULL CODE per discussion with patient upon admission DISPO PT/OT - Cleared for discharge to home Total time spent on discharge = 32 minutes This includes examination of the patient, discharge planning, medication reconciliation, and communication with other providers. Discharge Instructions Discharge Goals Goal(s): Decrease discomfort, Increase independence, Improve disease control, Prevent Disease Progression Activity Recommendations Activity Limitations: resume your previous activity (as tolerated prior to admission) . Instructions / Follow-Up Instructions / Follow-Up MEDICATION CHANGES: 1. Hold Lasix, Spironolactone today, tomorrow and restart from 12/03/16 2. Restart Lasix at reduced dose- 20 mg PO twice a day than 40 mg prior to hospitalization, continue spironolactone at the same dose 3. Discontinued potassium supplements due to high levels while in hospital MONITOR BMP to be drawn during next office visit FOLLOW UP 1. Follow up with PCP, Dr Cabrera on 12/05/16 at 1:00 PM Current Hospital Diet Patient's current hospital diet: AHA Diet (Heart Healthy), Low Sodium Diet (2gm Na), Diabetes Type 2 Diet Discharge Diet Recommended Diet: AHA Diet (Heart Healthy), Low Sodium Diet (2gm Na), Diabetes Type 2 Diet Pending Studies Studies pending at discharge: no Laboratory Results Hemoglobin A1c Test 11/29/16 07:35 Range/Units Estimated Average Glucose 160 mg/dl Hemoglobin A1c 7.2 H 4.5-5.6 % Medical Emergencies . Who to Call and When: Medical Emergencies: If at any time you feel your situation is an emergency, please call 911 immediately. . Non-Emergent Contact Non-Emergency issues call your: Primary Care Provider . . "Provider Documentation" section prepared by Radha Boss. VTE Core Measure Inpt VTE Proph given/why not?: Other Anticoagulation (Abixaban)
[2016-12-01 09:56] VITALS: BP 108/72; PULSE 70; TEMP 37; O2SAT 96
== END 2016-12-01 11:04 | disposition home or self-care (01) | DRG 683 ==
LOC: ENRESERVTM → ENRESERVDT → CANRESERV → C.EDB 09:46 → EDBEDREQSVC 14:12 → C.MS2W 14:15
PROVIDERS: ADMIT Internal Medicine; ATTEND Internal Medicine
DX: N17.9 Acute kidney failure, unspecified (principal); I50.22 Chronic systolic (congestive) heart failure; E87.2 Acidosis; I13.0 Hypertensive heart and chronic kidney disease with heart failure and stage 1 through stage 4 chronic kidney disease, or unspecified chronic kidney disease; N18.3 Chronic kidney disease, stage 3 (moderate); E78.5 Hyperlipidemia, unspecified; I48.0 Paroxysmal atrial fibrillation; E87.5 Hyperkalemia; I25.5 Ischemic cardiomyopathy; E03.9 Hypothyroidism, unspecified; D72.829 Elevated white blood cell count, unspecified; I73.9 Peripheral vascular disease, unspecified; E86.0 Dehydration; I25.10 Atherosclerotic heart disease of native coronary artery without angina pectoris; R19.7 Diarrhea, unspecified; E11.22 Type 2 diabetes mellitus with diabetic chronic kidney disease; T50.3X5A Adverse effect of electrolytic, caloric and water-balance agents, initial encounter; Z86.79 Personal history of other diseases of the circulatory system; Z95.820 Peripheral vascular angioplasty status with implants and grafts; Z95.1 Presence of aortocoronary bypass graft; Z87.891 Personal history of nicotine dependence; Z95.810 Presence of automatic (implantable) cardiac defibrillator; Z98.1 Arthrodesis status; Z79.01 Long term (current) use of anticoagulants; Z79.02 Long term (current) use of antithrombotics/antiplatelets; Z79.899 Other long term (current) drug therapy

== ENCOUNTER 2016-12-05 17:43 | Inpatient (IN) | payer OTHER ==
[~2016-12-05] VITALS: Ht 175.3 cm; Wt 93.4 kg
[~2016-12-05 17:43] MED LIST changes: -LISI-461 PO; -MCRK20 PO
--- NOTE | 2016-12-05 18:17 | DIAGNOSTIC IMAGING REPORT ---
CHEST ONE VIEW PORTABLE CLINICAL HISTORY: EVALUATE RESPIRATORY DISTRESS. DYSPNEA dyspnea COMPARISON STUDY: 11/28/2016 FINDINGS: Interval development of pulmonary edema. Heart is enlarged. Bipolar cardiac pacemaker/defibrillator is unchanged in position. IMPRESSION: Interval pulmonary edema Electronically signed by: Arie Curry M.D. 12/05/2016 6:16 PM Dictated Date/Time: 12/05/2016 6:15 PM
[2016-12-05 18:19] VITALS: PULSE 89; O2SAT 93
[2016-12-05 18:19] LABS: HEMATOCRIT 46.3 % (42-52); MEAN CELL VOLUME 96.5 fL (80-100); MEAN CORPUSCULAR HEMOGLOBIN 33.3 pg (25-34); MEAN CORPUSCULAR HGB CONC 34.6 g/dl (32-36); MEAN PLATELET VOLUME 9.3 fL (7.4-10.4); PLATELET COUNT 275 K/uL (130-400); WHITE BLOOD COUNT 22.46 K/uL (4.8-10.8)
[2016-12-05 18:27] LABS: INR 1.1 (0.9-1.1); PARTIAL THROMBOPLASTIN RATIO 1.1; PROTHROMBIN TIME (PATIENT) 11.3 SECONDS (9.0-12.0)
[2016-12-05] MEDS ORDERED: CEFEPIME IV 1,000 MG in DEXTROSE 5% 100ML 100 ML IV STA (18:28)
[2016-12-05 18:43] LABS: BUN/CREATININE RATIO 11.8 (10-20); CALCIUM 9.5 mg/dl (8.5-10.1); CREATININE 2.4 mg/dl (0.60-1.40); POTASSIUM 4.3 mmol/L (3.5-5.1)
[2016-12-05 18:51] LABS: ALB/GLOB RATIO 0.8 (0.9-2)
[2016-12-05] MEDS ORDERED: NovoLIN-R INSULIN PER UNIT CHARGE SC STA (18:59)
[2016-12-05] MEDS ORDERED: SPIR25TA PO (19:01)
[2016-12-05] MEDS ORDERED: FURO40TA3 PO (19:01)
[2016-12-05 19:03] LABS: VEN BLD GAS O2 SATURATION 97.4 %
[2016-12-05 19:03] LABS: BASO % 0.2 %; BASO ABS # 0.04 K/uL (0-0.2); COMPLETE YES; EOS % 0.2 %; IG% 1.5 %; LYMPH % 4.6 %; LYMPH ABS # 1.04 K/uL (1.2-3.4); NEUT % 89.5 %
[2016-12-05] MEDS ORDERED: LEVAQUIN 750MG / 150ML D5W IV STA (19:17)
[2016-12-05 19:49] LABS: BETA-HYDROXYBUTYRATE 5.96 mg/dL (0.2-2.81)
[2016-12-05] MEDS ORDERED: FUROSEMIDE 40 MG/4 ML VIAL IV STA (20:18)
[2016-12-05] MEDS ORDERED: INSULIN IV INFUSION PROTOCOL STA (20:28)
[2016-12-05] MEDS ORDERED: HHS GOAL RANGE 250-350 mg/dl ONE (20:30)
[2016-12-05] MEDS ORDERED: ONDANSETRON INJ 2 MG/ML 2 ML VIAL IV PRN (20:30)
[2016-12-05] MEDS ORDERED: PHARMACY GLYCEMIC MGMT CONSULT PRN (20:30)
[2016-12-05] MEDS ORDERED: MODERATE STRESS LEVEL ONE (20:30)
[2016-12-05] MEDS ORDERED: LEVALBUTEROL/IPRATROPIUM NEB INH PRN (20:45)
[2016-12-05] MEDS ORDERED: ACET-1222 PO (20:54)
[2016-12-05 21:00] VITALS: PULSE 88; O2SAT 94
[2016-12-05] MEDS ORDERED: NITROGLYCERIN 0.4 MG SL PER TAB CHARGE UT PRN (21:00)
[2016-12-05] MEDS ORDERED: LEVALBUTEROL/IPRATROPIUM NEB INH SCH (21:00)
[2016-12-05] MEDS ORDERED: INSULIN ASPART 100 UNITS/ML 3 ML PEN SC SCH (21:00)
[2016-12-05] MEDS ORDERED: ALPRAZOLAM 0.5 MG TAB PO PRN (21:00)
[2016-12-05 21:07] LABS: VEN BLD GAS O2 SATURATION 95.4 %; VEN BLOOD GAS BASE EXCESS -2.5 mmol/L
[2016-12-05] MEDS ORDERED: GLUCOSE 40% GEL 15 GM TUBE PO PRN (21:15)
[2016-12-05] MEDS ORDERED: GLUCOSE 10 TABS/TUBE PO PRN (21:15)
[2016-12-05] MEDS ORDERED: DEXTROSE 50% 50 ML SYR IV PRN (21:15)
[2016-12-05] MEDS ORDERED: GLUCAGON FOR INJ 1 MG VIAL SQ PRN (21:15)
[2016-12-05 21:20] LABS: BUN/CREATININE RATIO 14.4 (10-20); CALCIUM 8.6 mg/dl (8.5-10.1); CREATININE 2.3 mg/dl (0.60-1.40); MAGNESIUM 1.8 mg/dl (1.8-2.4); PHOSPHORUS 2.9 mg/dl (2.5-4.9); POTASSIUM 4.4 mmol/L (3.5-5.1)
[2016-12-05 21:30] LABS: BETA-HYDROXYBUTYRATE 2.34 mg/dL (0.2-2.81)
--- NOTE | 2016-12-05 21:55 | Critical Care Consultation ---
Critical Care Consultation Date of Consultation: Dec 05, 2016. Attending Physician: Dr. Doe Knowles Reason for Consultation: Increasing work of breathing History of Present Illness Ernst Cortez Sr is an 81-year-old man with a significant past medical history including DM2, chronic kidney disease stage III Baseline Cr 2.2 , chronic atrial fibrillation on both Plavix and Eliquis, coronary artery disease including placement of internal defibrillator and CABG x 4, heart failure with an ejection fraction of 15%. Patient had just been inpatient at [facility] for Renal Failure from 11/28-. Pt states he was feeling much better and back to baseline until today when he had started to experience a cough with yellow phlegm and increasing work of breathing. He denied feeling ill or experiencing malaise or fevers. He stated that he had several doctors appointments today and that while he is often dyspneic with physical activity; this time he started having trouble breathing while at rest. He does have a CPAP machine at home, after trying it he felt relief and decided to go to the Emergency room. Upon arrival he was found to be 88% O2 saturations; which improved to 100% on BiPap 12/6 FIO2 100%. Pt complained of chest pain; which he stated is common and ongoing for him. He states it is similar to his normal pain that chronically occurs on a random basis. He states this pain is different from the pain he is felt with his prior SD. According to medical records he has had several changes to his daily medication regimen; including, his Lasix and Lisinopril. Otherwise patient denied fever, chills, dizziness, awareness of tachyarrhythmias , abdominal pain, nausea. Patient denied weakness, numbness, tingling of extremities. Past Medical/Surgical History Medical Problems: Acute respiratory failure with hypoxia Acute systolic CHF (congestive heart failure) MIREILLE (acute kidney injury) CKD (chronic kidney disease) stage 3, GFR 30-59 ml/min Coronary artery disease Diabetes mellitus, type II Dyslipidemia History of ventricular tachycardia Hypertension PAD (peripheral artery disease) Spinal stenosis of lumbar region Systolic CHF, chronic Atrial Fibrillation Myocardial Infarction Spinal Stenosis Tobacco Abuse Anxiety Disorder Hypothyroidism Surgical Problems: Status post cardiac pacemaker procedure Status post coronary artery bypass grafting Status post lumbar surgery Status post tonsillectomy Family History FH: diabetes mellitus FATHER FH: lung cancer FATHER Social History Smoking Status: Former Smoker Smokeless Tobacco Use: Yes (Snuff User) Drug Use: none Marital Status: Housing Status: lives with significant other Occupation Status: retired Allergies Coded Allergies: Ciprofloxacin (Verified Allergy, Unknown, UNKNOWN, 12/05/16) FROM ENDO PRE-PROCEDURE ORDERSET Home Medications Scheduled Acetaminophen (Acetaminophen Extra Stren), 1,000 MG PO BID Amiodarone HCl (Amiodarone HCl), 200 MG PO BID Apixaban (Eliquis), 2.5 MG PO BID Calcitriol (Calcitriol), 0.25 MCG PO QAM Clopidogrel (Plavix), 75 MG PO QAM Furosemide (Lasix), 20 MG PO BID Glimepiride (Amaryl), 1 MG PO QAM Levothyroxine Sodium (Levothyroxine Sodium), 25 MCG PO QAM Pravastatin Sodium (Pravastatin Sodium), 80 MG PO QPM Spironolactone (Aldactone), 12.5 MG PO QAM Scheduled PRN Alprazolam (Xanax), 1 MG PO BID PRN for Anxiety Nitroglycerin (Nitrostat), 0.4 MG UT UD PRN for Chest Pain Current Inpatient Medications Current Inpatient Medications Medications (Trade) Dose Ordered Sig/Mireille Route Start Time Stop Time Status Last Admin Dose Admin Acetaminophen (Tylenol Tab) 650 mg Q4H PRN PO 12/05/16 20:30 01/04/17 20:29 Ondansetron HCl (Zofran Inj) 4 mg Q6H PRN IV 12/05/16 20:30 01/04/17 20:29 Insulin Aspart (novoLOG ASPART) SLIDING SCALE HS SC 12/05/16 21:00 01/04/17 20:59 Miscellaneous Information (Consult Glycemic Management Pharmacy) 1 ea UD PRN N/A 12/05/16 20:30 01/04/17 20:29 Miscellaneous (Xopenex/ Atrovent Neb) 1 ea Q6R INH 12/05/16 21:00 01/04/17 20:59 UNV Miscellaneous (Xopenex/ Atrovent Neb) 1 ea Q2H PRN INH 12/05/16 20:45 01/04/17 20:44 UNV Miscellaneous Information (Pharmacy Consult) 1 ea NOW STAT N/A 12/05/16 20:43 12/05/16 20:44 UNV Miscellaneous Information (Pharmacy Consult) 1 ea NOW STAT N/A 12/05/16 20:43 12/05/16 20:44 UNV Alprazolam (Xanax Tab) 1 mg BID PRN PO 12/05/16 21:00 01/04/17 20:59 UNV Amiodarone HCl (Cordarone Tab) 200 mg BID PO 12/05/16 21:00 01/04/17 20:59 UNV Apixaban (Eliquis Tab) 2.5 mg BID PO 12/05/16 21:00 01/04/17 20:59 UNV Calcitriol (Rocaltrol Cap) 0.25 mcg QAM PO 12/06/16 09:00 01/05/17 08:59 UNV Clopidogrel Bisulfate (plAVix TAB) 75 mg QAM PO 12/06/16 09:00 01/05/17 08:59 UNV Levothyroxine Sodium (Synthroid Tab) 25 mcg QAM PO 12/06/16 09:00 01/05/17 08:59 UNV Nitroglycerin (Nitrostat Tab) 0.4 mg UD PRN UT 12/05/16 21:00 01/04/17 20:59 UNV Pravastatin Sodium (Pravachol Tab) 80 mg HS PO 12/05/16 21:00 01/04/17 20:59 UNV Glucose (Glucose 40% Gel) 15-30 GRAMS 15 GRAMS... UD PRN PO 12/05/16 21:15 01/04/17 21:14 Glucose (Glucose Chew Tab) 4-8 Tablets 4 Tabl... UD PRN PO 12/05/16 21:15 01/04/17 21:14 Dextrose (Dextrose 50% 50ML Syringe) 25-50ML OF 50% DW IV FOR... UD PRN IV 12/05/16 21:15 01/04/17 21:14 Glucagon (Glucagon Inj) 1 mg UD PRN SQ 12/05/16 21:15 01/04/17 21:14 Review of Systems 12 systems reviewed and negative other than previously mentioned in the HPI. Physical Exam Date Time Temp Pulse Resp B/P Pulse Ox O2 Delivery O2 Flow Rate FiO2 12/05/16 21:09 84 22 113/69 100 BiPAP 100 12/05/16 19:57 83 24 105/65 98 BiPAP 100 12/05/16 19:29 86 26 117/76 99 BiPAP 100 12/05/16 18:50 87 28 115/74 99 BiPAP 100 12/05/16 18:35 94 29 115/74 99 BiPAP 100 12/05/16 18:19 89 93 100 12/05/16 18:16 99 30 132/106 98 BiPAP 100 12/05/16 18:09 118/67 12/05/16 18:08 94 22 98 12/05/16 18:03 107 12/05/16 18:03 98 28 96 12/05/16 18:00 126/68 12/05/16 17:58 104 29 88 12/05/16 17:53 100 33 92 12/05/16 17:49 119/74 12/05/16 17:43 90 Non-Rebreather 12/05/16 17:43 90 Non-Rebreather 12/05/16 17:43 36.6 101 23 119/74 90 Non-Rebreather 12/05/16 17:43 90 Non-Rebreather Vital Signs - as noted Laboratory Data - as noted Physical Exam: General - NAD, resting with BiPap in place 12/100% Eyes - PERRL, EOMI No icterus, gaze conjugate ENT - Mucosa dry, no lesions or candidiasis Neck - Supple, trachea midline, no masses or lymphadenopathy, no JVD or bruits Lungs - No paradoxical chest wall movement, coarse to auscultation bilaterally fine bibasilar crackles noted, no wheezes or rhonchi Heart - Reg rate and rhythm, No murmur, rubs, clicks, or gallops appreciated Abdomen - BS present, no bruits noted, tympanic to percussion, soft, nontender, distended, no organomegaly Extremities - No edema, pedal pulses intact, band-aid on right large toe from "clipping to close" Neuro - A&O x 4 Strength extremities equal and appropriate bilaterally Reflexes: Bicep, brachioradialis, patellar, and plantar normal and equal CN:PERRL, EOMI, no facial asymmetry, uvula/tongue midline Laboratory Results Last 24 Hours Test 12/05/16 17:43 12/05/16 17:45 12/05/16 18:44 12/05/16 19:15 Osmolality 314 mOsm/kg White Blood Count 22.46 K/uL Red Blood Count 4.80 M/uL Hemoglobin 16.0 g/dL Hematocrit 46.3 % Mean Corpuscular Volume 96.5 fL Mean Corpuscular Hemoglobin 33.3 pg Mean Corpuscular Hemoglobin Concent 34.6 g/dl Platelet Count 275 K/uL Mean Platelet Volume 9.3 fL Neutrophils (%) (Auto) 89.5 % Lymphocytes (%) (Auto) 4.6 % Monocytes (%) (Auto) 4.0 % Eosinophils (%) (Auto) 0.2 % Basophils (%) (Auto) 0.2 % Neutrophils # (Auto) 20.10 K/uL Lymphocytes # (Auto) 1.04 K/uL Monocytes # (Auto) 0.89 K/uL Eosinophils # (Auto) 0.05 K/uL Basophils # (Auto) 0.04 K/uL RDW Standard Deviation 49.3 fL RDW Coefficient of Variation 13.9 % Immature Granulocyte % (Auto) 1.5 % Immature Granulocyte # (Auto) 0.34 K/uL Prothrombin Time 11.3 SECONDS Prothromb Time International Ratio 1.1 Activated Partial Thromboplast Time 28.3 SECONDS Partial Thromboplastin Ratio 1.1 Sodium Level 136 mmol/L Potassium Level 4.3 mmol/L Chloride Level 101 mmol/L Carbon Dioxide Level 20 mmol/L Anion Gap 15.0 mmol/L Blood Urea Nitrogen 28 mg/dl Creatinine 2.40 mg/dl Est Creatinine Clear Calc Drug Dose 27.5 ml/min Estimated GFR () 28.5 Estimated GFR (Non- 24.6 BUN/Creatinine Ratio 11.8 Random Glucose 375 mg/dl Calcium Level 9.5 mg/dl Total Bilirubin 0.9 mg/dl Aspartate Amino Transf (AST/SGOT) 44 U/L Alanine Aminotransferase (ALT/SGPT) 64 U/L Alkaline Phosphatase 91 U/L Troponin I 0.053 ng/ml Pro-B-Type Natriuretic Peptide 8148 pg/ml Total Protein 7.5 gm/dl Albumin 3.4 gm/dl Globulin 4.1 gm/dl Albumin/Globulin Ratio 0.8 Beta-Hydroxybutyric Acid 5.96 mg/dL Venous Blood pH 7.45 Venous Blood Partial Pressure CO2 30 mmHg Venous Blood Partial Pressure O2 90 mmHg Venous Blood HCO3 21 mmol/L Venous Blood Oxygen Saturation 97.4 % Venous Blood Base Excess -2.0 mmol/L Bedside Glucose 324 mg/dl Test 12/05/16 20:50 Venous Blood pH 7.43 Venous Blood Partial Pressure CO2 33 mmHg Venous Blood Partial Pressure O2 75 mmHg Venous Blood HCO3 21 mmol/L Venous Blood Oxygen Saturation 95.4 % Venous Blood Base Excess -2.5 mmol/L Sodium Level 135 mmol/L Potassium Level 4.4 mmol/L Chloride Level 103 mmol/L Carbon Dioxide Level 21 mmol/L Anion Gap 11.0 mmol/L Blood Urea Nitrogen 33 mg/dl Creatinine 2.30 mg/dl Est Creatinine Clear Calc Drug Dose 28.7 ml/min Estimated GFR () 30.0 Estimated GFR (Non- 25.9 BUN/Creatinine Ratio 14.4 Random Glucose 337 mg/dl Calcium Level 8.6 mg/dl Phosphorus Level 2.9 mg/dl Magnesium Level 1.8 mg/dl Beta-Hydroxybutyric Acid 2.34 mg/dL Diagnostic Results CHEST ONE VIEW PORTABLE CLINICAL HISTORY: EVALUATE RESPIRATORY DISTRESS. DYSPNEA dyspnea COMPARISON STUDY: 11/28/2016 FINDINGS: Interval development of pulmonary edema. Heart is enlarged. Bipolar cardiac pacemaker/defibrillator is unchanged in position. IMPRESSION: Interval pulmonary edema EKG ventricular paced rhythm 96 bpm Assessment & Plan (1) Chest pain (2) Acute systolic CHF (congestive heart failure) (3) CHF (congestive heart failure) (4) Elevated troponin (5) Acute respiratory failure with hypoxia (6) Dyslipidemia (7) Coronary artery disease (8) Hypertension (9) Systolic CHF, chronic (10) Diabetes mellitus, type II (11) CKD (chronic kidney disease) stage 3, GFR 30-59 ml/min (12) PAD (peripheral artery disease) (13) Leukocytosis Respiratory: * Acute Hypoxic Respiratory Failure * Continue BiPap titrate down FIO2 Requirements * Likely Multifactorial; CHF versus PNA * Continue Lasix for improvement of pulmonary edema * Hospital Acquired PNA * Levaquin/Cefepime in ED; Continue with Zosyn/Doxy currently * Repeat CXR with clinical changes * Lactic Acid Mildly Elevated; however Negative Procalcitonin likely non- infectious will continue to monitor * Respiratory nebulizer regimen * Xopenex 1.25 mg every 6 hours * Atrovent 0.5 mg every 6 hours Renal: * CKD III and DM2 * Dr. Dale Consulted, Appreciate his input * Pt consented for Central line and emergent Dialysis if needed * Follow Serial PRPs * Cr outpt 10/26 was 1.8; now 2.4 follow * In the setting of heart failure with an EF of 15% and pulmonary edema/fluid overload; we will hold fluid resuscitation at this point aside from antibiotics and medications. Endocrine: * [facility] Protocol Started; however we'll need to monitor closely and has chronic kidney disease limits potassium resuscitation and pulmonary edema in the setting of congestive heart failure limits fluid resuscitation * Glycemic Control Consult in place * Accu-Checks per protocol * Begin insulin infusion according to protocol * Outpatient diagnosis of hypothyroidism; continue Synthroid inpatient Cardiac: * Likely troponin leak secondary to current condition; trend troponin * Monitor on telemetry * Consult in place for [facility] cardiology * Continue outpatient meds including amiodarone, Apixiban, pravastatin, Plavix * Closely monitor electrolytes ID * Leukocytosis in the setting of possible pneumonia; lactic mildly elevated 4.06 ; negative pro calcitonin unlikely infectious cause * Broad-spectrum antibiotics * Zosyn and doxycycline * Blood cultures pending * Follow fever curve * Follow daily labs Neuro * Anxiety disorder as outpatient; continue home Alprazolam * Patient currently appears calm * Currently Pain well controlled GI * Nothing by mouth except meds and ice chips for now * Will consider diet in the morning if BiPAP demands have decreased and anion gap remains closed * No indication for GI prophylaxis Heme * H&H stable * DVT prophylaxis: Continue home anticoagulants Access: No current indication for invasive monitoring hemodynamically stable. [address] CCT: 40 minutes; Not including any billable procedures. Thank you for including us in the care of this patient. Please review Dr. Stewart's addendum for further recommendations. I have personally evaluated and examined this patient. I agree with assessment and plan of Tasha Caal PA-C. Doubt CHF at this time more likely a COPD exacerbation. Procalcitonin not elevated, in consultation with Dr. Zavala of [facility] cardiology concern about sodium load associated with Zosyn. We will discontinue antibiotics at this point and observed clinically for evidence of true bacterial infection.
[2016-12-05] MEDS ORDERED: CEFEPIME CONSULT ACTIVE PRN ×2 (22:03)
[2016-12-05] MEDS ORDERED: LEVOFLOXACIN CONSULT ACTIVE PRN (22:04)
--- NOTE | 2016-12-05 22:08 | Progress Note ---
Progress Note Date of Service Dec 05, 2016. Progress Note ATTENDING ADDENDUM care coordinated with GHADA Rome please refer to her notes for full details, I agree with her notes patient seen and examined, records reviewed by myself as well on exam, family at bedside patient wearing bipap mask not in distress, speaks in sentences with no effort states he feels about the same reports chest tightness across his chest and left side no nausea, dizziness, diaphoresis reports cough productive of yellow sputum no other symptoms VS noted and reviewed oriented x 3 , not in distress, speaks in sentences with no effort nor accessory muscle use normal rate, regular rhythm, no murmurs (+) scattered rales, no wheezing non distended, soft, nontender no bipedal edema, erythema, warmth no gross focal neuro deficits WBC 22.4 Crea 2.4 BSG 375 CXR: pulmonary edema, with possible right mid-lower lobe pneumonia EKG: paced rhythm ASSESSMENT/PLAN> 81 year old male with history of Cardiomyopathy EF 15%, s/p BiVentricular Defibrillator, CAD, s/p CABG, Paroxysmal A Fib on Eliquis, presenting with shortness of breath. ACUTE HYPOXIC RESPIRATORY FAILURE LIKELY FROM ACUTE ON CHRONIC SYSTOLIC CONGESTIVE HEART FAILURE POSSIBLE RIGHT LOWER LOBE PNEUMONIA- [facility] - discharged a few days ago, Lasix reduced to 40mg daily from BID due to acute renal failure - Lasix 40mg IV one dose ordered titrate Lasix in AM repeat CXR ordered - ff up cultures empiric Zosyn + Doxycycline ordered Speech Therapy eval [facility] DM TYPE 2 Serum Osm 314 Insulin drip ordered HIGH ANION GAP METABOLIC ACIDOSIS from acute renal failure on CKD? component of HHS monitor PRP q4h ACUTE RENAL FAILURE ON CKD baseline crea < 2.2 monitor while on Lasix other diagnoses and plan of care as per GHADA Rome's notes Doe Knowles MD
--- NOTE | 2016-12-05 22:14 | EMERGENCY ROOM VISIT NOTE ---
History Report prepared by Agaibalma: Ledy Danielle Under the Supervision of: Dr. Sajan Nava D.O. First contact with patient: 17:46 Chief Complaint: RESPIRATORY DISTRESS Stated Complaint: RESPIRATORY DISTRESS W/CPAP History of Present Illness The patient is an 81 year old male who presents to the Emergency Room with complaints of persistent respiratory distress that began today prior to arrival. The patient states that he became short of breath and then developed new chest pain. He notes a history of a previous [place]. The patient states that the c-pap machine has alleviated some of his symptoms. The patient denies the chest pain radiating to any other part of his body. He notes a history of heart failure and asthma. The patient denies any COPD history. The patient denies wearing oxygen at home. EMS reports that the patient was 96% on c-pap. Pt denies headache, change in vision, fevers, runny nose, sore throat, cough, nausea, vomiting, diarrhea, and pain with urination. Per records, the patient has an EF of 15%, biventricular defibrillator, CABG, atrial fibrillation, PVD, and VT. Source of History: patient, EMS Onset: prior to arrival Position: other (global) Quality: other (respiratory distress) Timing: other (persistent) Associated Symptoms: + SOB, + chest pain Review of Systems See HPI for pertinent positives & negatives. A total of 10 systems reviewed and were otherwise negative. Past Medical & Surgical Medical Problems: (1) Acute respiratory failure with hypoxia (2) Acute systolic CHF (congestive heart failure) (3) MIREILLE (acute kidney injury) (4) CKD (chronic kidney disease) stage 3, GFR 30-59 ml/min (5) Coronary artery disease (6) Diabetes mellitus, type II (7) Dyslipidemia (8) History of ventricular tachycardia (9) Hypertension (10) PAD (peripheral artery disease) (11) Spinal stenosis of lumbar region (12) Systolic CHF, chronic Surgical Problems: (1) Status post cardiac pacemaker procedure (2) Status post coronary artery bypass grafting (3) Status post lumbar surgery (4) Status post tonsillectomy Family History FH: diabetes mellitus FATHER FH: lung cancer FATHER Social History Smoking Status: Former Smoker Alcohol Use: other Drug Use: none Marital Status: Housing Status: lives with significant other Occupation Status: retired Current/Historical Medications Scheduled Acetaminophen (Acetaminophen Extra Stren), 1,000 MG PO BID Amiodarone HCl (Amiodarone HCl), 200 MG PO BID Apixaban (Eliquis), 2.5 MG PO BID Calcitriol (Calcitriol), 0.25 MCG PO QAM Clopidogrel (Plavix), 75 MG PO QAM Furosemide (Lasix), 20 MG PO BID Glimepiride (Amaryl), 1 MG PO QAM Levothyroxine Sodium (Levothyroxine Sodium), 25 MCG PO QAM Pravastatin Sodium (Pravastatin Sodium), 80 MG PO QPM Spironolactone (Aldactone), 12.5 MG PO QAM Scheduled PRN Alprazolam (Xanax), 1 MG PO BID PRN for Anxiety Nitroglycerin (Nitrostat), 0.4 MG UT UD PRN for Chest Pain Allergies Coded Allergies: Ciprofloxacin (Verified Allergy, Unknown, UNKNOWN, 12/05/16) FROM ENDO PRE-PROCEDURE ORDERSET Physical Exam Vital Signs Date Time Temp Pulse Resp B/P Pulse Ox O2 Delivery O2 Flow Rate FiO2 12/05/16 21:09 84 22 113/69 100 BiPAP 100 12/05/16 21:00 88 94 100 12/05/16 19:57 83 24 105/65 98 BiPAP 100 12/05/16 19:29 86 26 117/76 99 BiPAP 100 12/05/16 18:50 87 28 115/74 99 BiPAP 100 12/05/16 18:35 94 29 115/74 99 BiPAP 100 12/05/16 18:19 89 93 100 12/05/16 18:16 99 30 132/106 98 BiPAP 100 12/05/16 18:09 118/67 12/05/16 18:08 94 22 98 12/05/16 18:03 107 12/05/16 18:03 98 28 96 12/05/16 18:00 126/68 12/05/16 17:58 104 29 88 12/05/16 17:53 100 33 92 12/05/16 17:49 119/74 12/05/16 17:43 90 Non-Rebreather 12/05/16 17:43 90 Non-Rebreather 12/05/16 17:43 36.6 101 23 119/74 90 Non-Rebreather 12/05/16 17:43 90 Non-Rebreather Physical Exam GENERAL: Ill appearing, sitting up in bed, dyspneic, on c-pap. EYE EXAM: normal conjunctiva, PERRL and EOM's grossly intact OROPHARYNX: no exudate, no erythema, lips, buccal mucosa, and tongue normal and mucous membranes are dry NECK: supple, no nuchal rigidity, no adenopathy, non-tender. No JVD. CHEST: Old midline incision with pacer in left upper chest. LUNGS: Rhonchi bilaterally with scant wheezing. HEART: no murmurs, S1 normal and S2 normal ABDOMEN: abdomen soft, non-tender, normo-active bowel sounds, no masses, no rebound or guarding. BACK: Back is symmetrical on inspection and there is no deformity, no midline tenderness, no CVA tenderness. SKIN: no rashes and no bruising UPPER EXTREMITIES: upper extremities are grossly normal. LOWER EXTREMITIES: Faint pitting edema. NEURO EXAM: Normal sensorium, cranial nerves II-XII grossly intact, normal speech, no gross weakness of arms, no gross weakness of legs. Medical Decision & Procedures ER Provider Diagnostic Interpretation: Xray results per the radiologist and my interpretation. Other results have been interpreted by the radiologist and reviewed by me. CHEST ONE VIEW PORTABLE CLINICAL HISTORY: EVALUATE RESPIRATORY DISTRESS. DYSPNEA dyspnea COMPARISON STUDY: 11/28/2016 FINDINGS: Interval development of pulmonary edema. Heart is enlarged. Bipolar cardiac pacemaker/defibrillator is unchanged in position. IMPRESSION: Interval pulmonary edema Electronically signed by: Arie Curry M.D. 12/05/2016 6:16 PM Dictated Date/Time: 12/05/2016 6:15 PM Laboratory Results 12/05/16 17:45 Red Blood Count 4.80, Mean Corpuscular Volume 96.5, Mean Corpuscular Hemoglobin 33.3, Mean Corpuscular Hemoglobin Concent 34.6, Mean Platelet Volume 9.3, Neutrophils (%) (Auto) 89.5, Lymphocytes (%) (Auto) 4.6, Monocytes (%) (Auto) 4.0, Eosinophils (%) (Auto) 0.2, Basophils (%) (Auto) 0.2, Neutrophils # (Auto) 20.10, Lymphocytes # (Auto) 1.04, Monocytes # (Auto) 0.89, Eosinophils # (Auto) 0.05, Basophils # (Auto) 0.04 12/05/16 20:50 Test 12/05/16 17:43 12/05/16 17:45 12/05/16 19:15 12/05/16 20:50 Osmolality 314 mOsm/kg (280-300) White Blood Count 22.46 K/uL (4.8-10.8) Red Blood Count 4.80 M/uL (4.7-6.1) Hemoglobin 16.0 g/dL (14.0-18.0) Hematocrit 46.3 % (42-52) Mean Corpuscular Volume 96.5 fL (80-100) Mean Corpuscular Hemoglobin 33.3 pg (25-34) Mean Corpuscular Hemoglobin Concent 34.6 g/dl (32-36) Platelet Count 275 K/uL (130-400) Mean Platelet Volume 9.3 fL (7.4-10.4) Neutrophils (%) (Auto) 89.5 % Lymphocytes (%) (Auto) 4.6 % Monocytes (%) (Auto) 4.0 % Eosinophils (%) (Auto) 0.2 % Basophils (%) (Auto) 0.2 % Neutrophils # (Auto) 20.10 K/uL (1.4-6.5) Lymphocytes # (Auto) 1.04 K/uL (1.2-3.4) Monocytes # (Auto) 0.89 K/uL (0.11-0.59) Eosinophils # (Auto) 0.05 K/uL (0-0.5) Basophils # (Auto) 0.04 K/uL (0-0.2) RDW Standard Deviation 49.3 fL (36.4-46.3) RDW Coefficient of Variation 13.9 % (11.5-14.5) Immature Granulocyte % (Auto) 1.5 % Immature Granulocyte # (Auto) 0.34 K/uL (0.00-0.02) Prothrombin Time 11.3 SECONDS (9.0-12.0) Prothromb Time International Ratio 1.1 (0.9-1.1) Activated Partial Thromboplast Time 28.3 SECONDS (21.0-31.0) Partial Thromboplastin Ratio 1.1 Total Bilirubin 0.9 mg/dl (0.2-1) Aspartate Amino Transf (AST/SGOT) 44 U/L (15-37) Alanine Aminotransferase (ALT/SGPT) 64 U/L (12-78) Alkaline Phosphatase 91 U/L (45-117) Troponin I 0.053 ng/ml (0-0.045) Pro-B-Type Natriuretic Peptide 8148 pg/ml (0-1800) Total Protein 7.5 gm/dl (6.4-8.2) Albumin 3.4 gm/dl (3.4-5.0) Globulin 4.1 gm/dl (2.5-4.0) Albumin/Globulin Ratio 0.8 (0.9-2) Bedside Glucose 324 mg/dl (70-99) Venous Blood pH 7.43 (7.36-7.41) Venous Blood Partial Pressure CO2 33 mmHg (38.0-50.0) Venous Blood Partial Pressure O2 75 mmHg Venous Blood HCO3 21 mmol/L Venous Blood Oxygen Saturation 95.4 % Venous Blood Base Excess -2.5 mmol/L Anion Gap 11.0 mmol/L (3-11) Est Creatinine Clear Calc Drug Dose 28.7 ml/min Estimated GFR () 30.0 Estimated GFR (Non- 25.9 BUN/Creatinine Ratio 14.4 (10-20) Lactic Acid Level 3.3 mmol/L (0.4-2.0) Calcium Level 8.6 mg/dl (8.5-10.1) Phosphorus Level 2.9 mg/dl (2.5-4.9) Magnesium Level 1.8 mg/dl (1.8-2.4) Beta-Hydroxybutyric Acid 2.34 mg/dL (0.2-2.81) Laboratory results per my review. Medications Administered Medications (Trade) Dose Ordered Sig/Mireille Route Start Time Stop Time Status Last Admin Dose Admin Cefepime HCl/ Dextrose (Maxipime IV/D5 100ml) 111.3 ml @ 200 mls/hr NOW STAT IV 12/05/16 18:28 12/05/16 19:01 DC 12/05/16 19:08 200 MLS/HR Insulin Human Regular (novoLIN-R U-100 PER UNIT) 5 units NOW STAT SC 12/05/16 18:59 12/05/16 19:00 DC 12/05/16 19:18 5 UNITS Levofloxacin (Levaquin / D5W) 750 mg NOW STAT IV 12/05/16 19:17 12/05/16 19:18 DC 12/05/16 19:29 750 MG Furosemide (Lasix Inj) 40 mg NOW STAT IV 12/05/16 20:18 12/05/16 20:26 DC 12/05/16 20:47 40 MG ECG Indication: chest pain, SOB/dyspnea Rate (beats per minute): 96 Rhythm: other (ventricularly paced) Findings: left axis deviation, other (poor baseline) ED Course ED COURSE: Vital signs were reviewed and showed tachycardic and hypoxic The patients medical record was reviewed The above diagnostic studies were performed and reviewed. ED treatments and interventions as stated above. 1745: The patient was evaluated in room A1. A complete history and physical examination was performed. 1827: Ordered Cefepime HCl 1000 mg/Dextrose 111.3 ml @ 200 mls/hr IV. 1849: Upon reevaluation, the patient is doing well.I discussed my findings with the patient and he understands and agrees with the treatment plan. Based on the patients age, coexisting illnesses, exam and lab findings the decision to treat as an inpatient was made. The patient remained stable while under my care. The patient will be evaluated for further management. 1858: Ordered Insulin Human Regular 5 units SC. 1916: Ordered Levofloxacin 750 mg IV. 1917: I discussed the patients case with Joe Kwon PA-C. She is going to evaluate the patient for further treatment. 2004: I reevaluated the patient and he is hemodynamically stable. Medical Decision Differential diagnoses includes but is not limited to pneumonia, bronchitis, COPD/Asthma exacerbation, pneumothorax, pulmonary embolism, congestive heart failure, acute coronary syndrome Patient is an 81-year-old male that is brought in by EMS on CPAP where he was found to be hypoxic with a pulse ox in the 70s. He notes that this started suddenly while he was at home walking into the house. Upon arrival he was transferred to [facility]. On a nonrebreather he was 90% and became tachypneic with a respiratory rate in the mid 30s. Labs were obtained and show a leukocytosis of 22,000. BMP shows an increase in his creatinine to 2.4. BSG with a glucose of 375. CO2/bicarbonate was only 20. Troponin was elevated at 0.05. VBG shows a pH of 7.35. Chest x-ray supports pulmonary edema with a focal consolidation the right midlung. He was initially covered with cefepime. I did not give him IV fluids as I was initially concerned that this may be a combination of failure. He did have 1 or 2 episodes of vomiting at home today. Based on his history however this does appear to be acute onset of shortness of breath and I favor that this is most likely failure. He was monitored closely for over 3 hours. He was admitted to internal medicine on BiPAP resting comfortably. Consults Time Called: 1915 Consulting Physician: Joe Kwon PA-C Returned Call: 1917 I discussed the patients case with Joe Kwon PA-C. She is going to evaluate the patient for further treatment. Impression Primary Impression: Acute respiratory failure with hypoxia Additional Impressions: Elevated troponin Leukocytosis CHF (congestive heart failure) Pulmonary infiltrate Critical Care I have personally spent 125 minutes of critical care time in the direct management of this patient. This includes bedside care, interpretation of diagnostic studies, and testing, discussion with consultants, patient, and family members, and other required patient management activities. This 125 minutes is in excess of all separately billable procedures. Scribe Attestation The scribe's documentation has been prepared under my direction and personally reviewed by me in its entirety. I confirm that the note above accurately reflects all work, treatment, procedures, and medical decision making performed by me. Departure Information Dispostion Being Evaluated By Hospitalist Sobeida Owens M.D. (PCP) Problem Qualifiers
[2016-12-05 22:28] VITALS: PULSE 82; O2SAT 95
[2016-12-05] MEDS ORDERED: PIPERACILL/TAZOBAC CONSULT ACTIVE PRN (22:30)
[2016-12-05] MEDS ORDERED: DOXYCYCLINE PHARMACY CONSULT IN PROGRESS PRN (22:45)
[2016-12-05] MEDS ORDERED: PIPERACILL/TAZOBAC IV 3.375 GM in DEXTROSE 5% 100ML IV ONE (22:45)
[2016-12-05] MEDS ORDERED: DOXYCYCLINE HYCLATE 100 MG in DEXTROSE 5% 100ML IV SCH (23:00)
--- NOTE | 2016-12-05 23:30 | History and Physical ---
History & Physical Date & Time of Service: Dec 05, 2016 at 20:50 Chief Complaint: Respiratory Distress W/Cpap Primary Care Physician: Sobeida Cabrera M.D. History of Present Illness Source: family, hospital records This is an 81 year old male with PMH of CAD s/p CABG, systolic CHF EF <15% s/p pacemaker defibrillator, PAF on Eliquis, HTN, DM type 2, PVD, CKD stage III, and other problems listed below who presents to the ED for SOB. Pt was recently admitted 11/28-12/01 for MIREILLE and hyperkalemia. Pt's Lasix dose was to 20 mg BID, spironolactone continued, and lisinopril was stopped. Pt states he was initially feeling fine since discharge 4 days ago then today after 2 doctor appointments became SOB. At baseline patient is ROBERTSON on ambulating across the room, but today was SOB at rest. Has chronic orthopnea. In the ER patient was hypoxic to 88% which improved on BiPAP. He reports chest pain while in the ER described as pulling and jabbing which starts in left chest near pacer and radiates across to R chest and to left axilla. Pt states he has similar pain on chronic basis which occurs randomly. States this pain feels different from prior ME. Pt reports cough with yellow sputum starting today. Had one posttussive vomiting episode. Had rhinorrhea past few weeks. He chronically feels cold. Pt's weight increased approx 1 kg since he was discharged. Denies diaphoresis, fever, sinus pressure, ear ache, sore throat, swallowing difficulty , palpitations, abdominal pain, diarrhea, dysuria, frequency, wounds or rashes, LE edema, calf pain. Denies recent infection or antibiotics. Past Medical/Surgical History Medical Problems: (1) CKD (chronic kidney disease) stage 3, GFR 30-59 ml/min Status: Chronic (2) Coronary artery disease Permanent Comment: s/p ME s/p CABG x 4 1990 Status: Chronic (3) Diabetes mellitus, type II Status: Chronic (4) Dyslipidemia Status: Chronic (5) History of ventricular tachycardia Status: Chronic (6) Hypertension Status: Chronic (7) PAD (peripheral artery disease) Permanent Comment: s/p left SECURITY AGENT / SFA / popliteal arthrectomy and angioplasty left SFA stent Status: Chronic (8) Spinal stenosis of lumbar region Status: Chronic (9) Systolic CHF, chronic Permanent Comment: LVEF 15-20% by echo 2002 LVEF 25-29% by echo 06/08/13 Status: Chronic Surgical Problems: (1) Status post cardiac pacemaker procedure Permanent Comment: initially had single chamber pacer AICD, upgraded to BiV device in 2008, generator change in 03/2015 Status: Chronic (2) Status post coronary artery bypass grafting Status: Chronic (3) Status post lumbar surgery Status: Chronic (4) Status post tonsillectomy Status: Chronic Family History FH: diabetes mellitus FATHER FH: lung cancer FATHER Social History Smoking Status: Former Smoker Drug Use: none Marital Status: Housing status: lives with family Occupational Status: retired Immunizations History of Influenza Vaccine: Yes Influenza Vaccine Date: Jun 20, 2015 History of Tetanus Vaccine?: Yes Tetanus Immunization Date: Jun 09, 2013 History of Pneumococcal: Yes Pneumococcal Date: Feb 21, 2015 History of Hepatitis B Vaccine: No Multi-Drug Resistant Organisms History of MDRO: No Allergies Coded Allergies: Ciprofloxacin (Verified Allergy, Unknown, UNKNOWN, 12/05/16) FROM ENDO PRE-PROCEDURE ORDERSET Home Medications Scheduled Acetaminophen (Acetaminophen Extra Stren), 1,000 MG PO BID Amiodarone HCl (Amiodarone HCl), 200 MG PO BID Apixaban (Eliquis), 2.5 MG PO BID Calcitriol (Calcitriol), 0.25 MCG PO QAM Clopidogrel (Plavix), 75 MG PO QAM Furosemide (Lasix), 20 MG PO BID Glimepiride (Amaryl), 1 MG PO QAM Levothyroxine Sodium (Levothyroxine Sodium), 25 MCG PO QAM Pravastatin Sodium (Pravastatin Sodium), 80 MG PO QPM Spironolactone (Aldactone), 12.5 MG PO QAM Scheduled PRN Alprazolam (Xanax), 1 MG PO BID PRN for Anxiety Nitroglycerin (Nitrostat), 0.4 MG UT UD PRN for Chest Pain Review of Systems Ten point ROS performed with pertinent positives and negatives noted in HPI. Physical Exam Vital Signs Date Time Temp Pulse Resp B/P Pulse Ox O2 Delivery O2 Flow Rate FiO2 12/05/16 19:57 83 24 105/65 98 BiPAP 100 12/05/16 19:29 86 26 117/76 99 BiPAP 100 12/05/16 18:50 87 28 115/74 99 BiPAP 100 12/05/16 18:35 94 29 115/74 99 BiPAP 100 12/05/16 18:19 89 93 100 12/05/16 18:16 99 30 132/106 98 BiPAP 100 12/05/16 18:09 118/67 12/05/16 18:08 94 22 98 12/05/16 18:03 107 12/05/16 18:03 98 28 96 12/05/16 18:00 126/68 12/05/16 17:58 104 29 88 12/05/16 17:53 100 33 92 12/05/16 17:49 119/74 12/05/16 17:43 90 Non-Rebreather 12/05/16 17:43 90 Non-Rebreather 12/05/16 17:43 36.6 101 23 119/74 90 Non-Rebreather 12/05/16 17:43 90 Non-Rebreather General Appearance: + pertinent finding (alert elderly male lying in bed on BiPAP, family at bedside) Head: normocephalic, atraumatic Eyes: normal inspection, PERRL, EOMI ENT: hearing grossly normal, + pertinent finding (unable to examine pharynx due to BiPAP in place) Neck: supple, no JVD, trachea midline Respiratory/Chest: no respiratory distress, no accessory muscle use, + crackles (severe crackles bilateral bases ), + pertinent finding (saturating well on BiPAP. + reproducible anterior chest wall pain) Cardiovascular: regular rate, rhythm, no murmur Abdomen/GI: normal bowel sounds, non tender, soft Extremities/Musculoskelatal: no calf tenderness, no pedal edema Neurologic/Psych: alert, normal mood/affect, oriented x 3, + pertinent finding (grossly nonfocal) Skin: normal color, warm/dry Diagnostics Laboratory Results Results Past 24 Hours Test 12/05/16 17:43 12/05/16 17:45 12/05/16 18:44 12/05/16 19:15 Range/Units White Blood Count 22.46 4.8-10.8 K/uL Red Blood Count 4.80 4.7-6.1 M/uL Hemoglobin 16.0 14.0-18.0 g/dL Hematocrit 46.3 42-52 % Mean Corpuscular Volume 96.5 80-100 fL Mean Corpuscular Hemoglobin 33.3 25-34 pg Mean Corpuscular Hemoglobin Concent 34.6 32-36 g/dl Platelet Count 275 130-400 K/uL Mean Platelet Volume 9.3 7.4-10.4 fL Neutrophils (%) (Auto) 89.5 % Lymphocytes (%) (Auto) 4.6 % Monocytes (%) (Auto) 4.0 % Eosinophils (%) (Auto) 0.2 % Basophils (%) (Auto) 0.2 % Neutrophils # (Auto) 20.10 1.4-6.5 K/uL Lymphocytes # (Auto) 1.04 1.2-3.4 K/uL Monocytes # (Auto) 0.89 0.11-0.59 K/uL Eosinophils # (Auto) 0.05 0-0.5 K/uL Basophils # (Auto) 0.04 0-0.2 K/uL RDW Standard Deviation 49.3 36.4-46.3 fL RDW Coefficient of Variation 13.9 11.5-14.5 % Immature Granulocyte % (Auto) 1.5 % Immature Granulocyte # (Auto) 0.34 0.00-0.02 K/uL Prothrombin Time 11.3 9.0-12.0 SECONDS Prothromb Time International Ratio 1.1 0.9-1.1 Activated Partial Thromboplast Time 28.3 21.0-31.0 SECONDS Partial Thromboplastin Ratio 1.1 Sodium Level 136 136-145 mmol/L Potassium Level 4.3 3.5-5.1 mmol/L Chloride Level 101 98-107 mmol/L Carbon Dioxide Level 20 21-32 mmol/L Anion Gap 15.0 3-11 mmol/L Blood Urea Nitrogen 28 7-18 mg/dl Creatinine 2.40 0.60-1.40 mg/dl Est Creatinine Clear Calc Drug Dose 27.5 ml/min Estimated GFR () 28.5 Estimated GFR (Non- 24.6 BUN/Creatinine Ratio 11.8 10-20 Random Glucose 375 70-99 mg/dl Calcium Level 9.5 8.5-10.1 mg/dl Total Bilirubin 0.9 0.2-1 mg/dl Aspartate Amino Transf (AST/SGOT) 44 15-37 U/L Alanine Aminotransferase (ALT/SGPT) 64 12-78 U/L Alkaline Phosphatase 91 45-117 U/L Troponin I 0.053 0-0.045 ng/ml Pro-B-Type Natriuretic Peptide 8148 0-1800 pg/ml Total Protein 7.5 6.4-8.2 gm/dl Albumin 3.4 3.4-5.0 gm/dl Globulin 4.1 2.5-4.0 gm/dl Albumin/Globulin Ratio 0.8 0.9-2 Beta-Hydroxybutyric Acid 5.96 0.2-2.81 mg/dL Venous Blood pH 7.45 7.36-7.41 Venous Blood Partial Pressure CO2 30 38.0-50.0 mmHg Venous Blood Partial Pressure O2 90 mmHg Venous Blood HCO3 21 mmol/L Venous Blood Oxygen Saturation 97.4 % Venous Blood Base Excess -2.0 mmol/L Bedside Glucose 324 70-99 mg/dl Test 12/05/16 20:20 12/05/16 20:26 Range/Units Microbiology Results 12/05/16 Blood Culture, Leonardo Batch Pending 12/05/16 Blood Culture, Leonardo Batch Pending Diagnostic Radiology CHEST ONE VIEW PORTABLE CLINICAL HISTORY: EVALUATE RESPIRATORY DISTRESS. DYSPNEA dyspnea COMPARISON STUDY: 11/28/2016 FINDINGS: Interval development of pulmonary edema. Heart is enlarged. Bipolar cardiac pacemaker/defibrillator is unchanged in position. IMPRESSION: Interval pulmonary edema EKG ventricular paced rhythm 96 bpm Impression Assessment and Plan ACUTE HYPOXIC RESPIRATORY FAILURE Likely multifactorial from acute systolic CHF and pneumonia Currently on BiPAP Admit to ICU for close monitoring; relay engineer CLAIR aware ACUTE SYSTOLIC CHF Ischemic cardiomyopathy with EF <15% s/p biventricular pacemaker/ defibrillator Lasix dose decreased on recent hospitalization due to MIREILLE IV Lasix 40 mg x 1 then further dosing as per cardiology Hold home diuretics Consult cardiology PNEUMONIA Possibly HCAP; r/o aspiration due to right side infiltrate + Leukocytosis 22k, initially tachycardic and tachypneic- resolved, BP's stable Received cefepime and Levaquin in ER Check lactic acid and procalcitonin Blood cultures and sputum culture Continue empiric antibiotics with Zosyn and doxycycline Speech evaluation tomorrow am Recheck CXR in am HHS Underlying DM type 2 Serum osmolality 314 Ordered insulin drip; pharmacy consulted and made aware Monitor PRP, Mag, Phos, VBG q4h Glimepiride held MIREILLE ON CKD STAGE III Possible cardiorenal syndrome Creat elevated to 2.4; was 1.9 on day of last discharge (Creat elevated to >3 during that admission) Monitor renal function while on IV Lasix Nephrology consulted MILDLY ELEVATED TROPONIN With atypical chest pain Hx CAD s/p CABG EKG- no evidence of acute ischemia Trend serial cardiac enzymes Continue Plavix, statin PAROXYSMAL ATRIAL FIBRILLATION Currently in paced rhythm Continue amiodarone, Eliquis HYPERTENSION BP is stable Home diuretics held HYPOTHYROIDISM Continue levothyroxine DYSLIPIDEMIA Continue statin DVT PROPHYLAXIS On Eliquis CODE STATUS Full code per preference on recent admission Patient seen in collaboration with Dr. Knowles. Please see his addendum VTE Prophylaxis VTE Risk Assessment Done? Y/N: Yes Risk Level: Moderate
[2016-12-06] VITALS (51 sets, daily range): BP systolic 89–137; BP diastolic 50–78; PULSE 60–96; TEMP 36.6–36.9; O2SAT 83–98; Ht 175.3 cm; Wt 93.4 kg
[2016-12-06] MEDS ORDERED: INSULIN HUMAN REGULAR IV BOLUS 2.5 UNIT in SYRINGE 0 ML IV SCH (01:15)
[2016-12-06] MEDS ORDERED: INSULIN REGULAR 250 UNITS in SODIUM CHLORIDE 0.9% 250ML 250 ML IV SCH (01:15)
[2016-12-06 01:38] LABS: VEN BLD GAS O2 SATURATION 88.8 %; VEN BLOOD GAS BASE EXCESS 0.3 mmol/L
[2016-12-06] MEDS: PRAVASTATIN SOD 40 MG TAB PO SCH ×2 (01:39→20:23)
[2016-12-06] MEDS: APIXABAN 2.5 MG TAB PO SCH ×3 (01:40→20:24)
[2016-12-06] MEDS: AMIODARONE 200 MG TAB PO SCH ×3 (01:43→20:24)
[2016-12-06 01:57] LABS: BUN/CREATININE RATIO 14.7 (10-20); CALCIUM 8.7 mg/dl (8.5-10.1); CREATININE 2.2 mg/dl (0.60-1.40); POTASSIUM 4.2 mmol/L (3.5-5.1)
[2016-12-06] MEDS: IPRATROPIUM BROMIDE NEB SOLN 0.02% 2.5 ML VIAL INH SCH ×4 (02:07→20:28)
[2016-12-06] MEDS: LEVALBUTEROL 1.25MG/0.5ML NEB INH SCH ×4 (02:08→20:28)
[2016-12-06 02:11] LABS: CKMB/CK RATIO 2.2 (0-3.0); PHOSPHORUS 2.8 mg/dl (2.5-4.9)
[2016-12-06] MEDS ORDERED: PIPERACILL/TAZOBAC IV 3.375 GM in DEXTROSE 5% 100ML IV SCH (04:00)
[2016-12-06 04:10] LABS: VEN BLD GAS O2 SATURATION > 60.0 %; VEN BLOOD GAS BASE EXCESS 2.3 mmol/L; VENOUS BLOOD GAS PCO2 42 mmHg (38.0-50.0); VENOUS BLOOD GAS PO2 25 mmHg
[2016-12-06 04:31] LABS: BUN/CREATININE RATIO 14.4 (10-20); CALCIUM 8.8 mg/dl (8.5-10.1); CREATININE 2.3 mg/dl (0.60-1.40); MAGNESIUM 2.1 mg/dl (1.8-2.4); POTASSIUM 4.4 mmol/L (3.5-5.1)
[2016-12-06 04:37] LABS: BASO ABS # 0.01 K/uL (0-0.2); CKMB/CK RATIO 2.1 (0-3.0); COMPLETE YES; HEMATOCRIT 37.5 % (42-52); IG% 0.5 %; LYMPH % 1.8 %; LYMPH ABS # 0.37 K/uL (1.2-3.4); MEAN CELL VOLUME 93.5 fL (80-100); MEAN CORPUSCULAR HEMOGLOBIN 32.2 pg (25-34); MEAN CORPUSCULAR HGB CONC 34.4 g/dl (32-36); MEAN PLATELET VOLUME 8.7 fL (7.4-10.4); MONO % 6.4 %; NEUT % 91.3 %; PHOSPHORUS 2.8 mg/dl (2.5-4.9); PLATELET COUNT 149 K/uL (130-400); RED BLOOD COUNT 4.01 M/uL (4.7-6.1); WHITE BLOOD COUNT 20.01 K/uL (4.8-10.8)
[2016-12-06] MEDS: LEVOTHYROXINE 25 MCG TAB PO SCH (06:05)
[2016-12-06 06:45] LABS: HYPERSEGMENTED POLYS 1+
--- NOTE | 2016-12-06 07:56 | NEPHROLOGY CONSULTATION ---
DATE OF CONSULTATION: 12/06/2016 ATTENDING OF RECORD: Dr. Knowles. REASON FOR CONSULTATION: MIREILLE. History of present illness: This 81-year-old male who has significant history of cardiomyopathy with an EF less than 15% with AICD as well as history of bypass surgery and paroxysmal atrial fibrillation, on Eliquis who has underlying CKD stage III from diabetes, hypertension as well as cardiorenal syndrome. The patient was recently in the hospital from the to the with hyperkalemia and MIREILLE. Diuretics were adjusted where the Lasix was reduced to 20 mg twice a day and they stopped the spironolactone and lisinopril was also stopped. The patient felt well but then suddenly became short of breath and hypoxic several days later as outpatient. The patient was started on BiPAP and given IV Lasix. The patient this morning feels comfortable on the BiPAP. Lungs are clear, oxygenating well on the BIPAP at 45% FIO2. PAST MEDICAL HISTORY: CKD stage III, coronary artery disease with history of bypass, atrial fibrillation, cardiomyopathy, type 2 diabetes, CKD stage III, hyperlipidemia, hypertension, peripheral arterial disease, spinal stenosis. PAST SURGICAL HISTORY: AICD/pacemaker placement, CABG x4, back surgery and tonsillectomy. FAMILY HISTORY: Significant for diabetes. SOCIAL HISTORY: Former smoker. No drugs, no alcohol. He is and lives with family. CURRENT MEDICATIONS: Calcitriol 0.25 mcg daily, Plavix 75 mg daily, Synthroid 25 mcg daily, Zosyn 3.375 IV q. 8 hours, insulin drip, amiodarone 200 mg p.o. b.i.d., Eliquis 2.5 mg p.o. b.i.d., doxycycline 100 mg IV q. 12. REVIEW OF SYSTEMS: Difficult to obtain secondary to the patient being on BiPAP; however, has shortness of breath, fatigue. Denies any chest pain, no nausea or vomiting, no fevers or chills but does feel cold at baseline. Positive productive cough, decreased appetite. All other review of systems otherwise negative. PHYSICAL EXAMINATION: VITAL SIGNS: Temperature 36.7, pulse 71, respiratory rate is 25, blood pressure 118/65, satting 97% on 45% FIO2 with BiPAP. GENERAL: Awake, alert, oriented x3. EYES: No scleral icterus. EARS, NOSE AND THROAT: Positive BiPAP. CARDIAC: Regular rate and rhythm. ABDOMEN: Bowel sounds positive, soft, nontender. PULMONARY: Clear to auscultation anteriorly. EXTREMITIES: No significant clubbing, cyanosis or edema. NEUROLOGICALLY: Nonfocal. DERMATOLOGICAL: No rash or ulcers noted. LABORATORIES: Sodium was 138, potassium 4.4, chloride is 103, bicarb is 28, BUN is 33, creatinine is 2.3, glucose 198. Calcium is 8.8, phosphorus 2.8, mag is 2.1. Troponin was 0.053, trending up to 0.421. White count is 20,000 and H\T\H 13 and 37.5, platelet count is 149. Blood gas this morning shows pH 7.43, pCO2 of 42, pO2 of 25 and bicarbonate of 27; this is a venous blood gas. Flu is pending. INR is 1.1 yesterday. IMAGING DATA: Chest x-ray yesterday showed interval pulmonary edema. The patient did receive 1 dose of Lasix 40 mg IV last night, had 200 mL out overnight. ASSESSMENT AND PLAN: 1. Acute kidney injury on chronic kidney disease. The patient during previous admission had a creatinine of 3, which improved to 1.9 on the , comes back in 4 days later with a creatinine of 2.4 and is now around 2.3, likely his new baseline in the low 2s; potassium levels stable. The patient likely continues to need intermittent doses of IV Lasix, will go ahead and redose another 40 mg of IV Lasix now to try to help with the congestive heart failure. Was on Lasix 20 mg b.i.d. with no spironolactone and no lisinopril. Defer to cardiology, but would consider Lasix 40 mg oral b.i.d. while following the weights closely at home. Hesitant to restart the spironolactone with the hyperkalemia during previous admission, although may be beneficial to his survival. There is an option that we could consider giving Veltassa, which is an oral potassium binder as a possible consideration if spironolactone is needed and the patient developed hyperkalemia again. 2. Paroxysmal atrial fibrillation, was on Eliquis with creatinine has been varying, question if Eliquis is the appropriate medication for him at this time. Could consider switching to Coumadin temporarily; however, will respectfully defer to cardiology. Appreciate consultation. HAILEY
[2016-12-06] MEDS ORDERED: FUROSEMIDE INJ 40 MG in SYRINGE 0 ML IV ONE (08:00)
[2016-12-06] MEDS: CLOPIDOGREL BISULFATE 75 MG TAB PO SCH (08:06)
[2016-12-06] MEDS: CALCITRIOL 0.25 MCG CAP PO SCH (08:06)
[2016-12-06] MEDS ORDERED: STOP ORDER: D/C INSULIN DRIP ONE (08:30)
[2016-12-06 08:41] LABS: VEN BLOOD GAS BASE EXCESS 2.1 mmol/L; VENOUS BLOOD GAS PCO2 39 mmHg (38.0-50.0); VENOUS BLOOD GAS PO2 31 mmHg
[2016-12-06 08:44] LABS: VEN BLD GAS O2 SATURATION < 60.0 %
[2016-12-06] MEDS ORDERED: LANTUS PER UNIT CHARGE SQ ONE (09:00)
[2016-12-06 09:15] LABS: BUN/CREATININE RATIO 16.6 (10-20); CALCIUM 8.9 mg/dl (8.5-10.1); MAGNESIUM 2.1 mg/dl (1.8-2.4); POTASSIUM 3.9 mmol/L (3.5-5.1)
[2016-12-06 09:18] LABS: CKMB/CK RATIO 2.2 (0-3.0); PHOSPHORUS 2.5 mg/dl (2.5-4.9)
[2016-12-06 10:11] LABS: INFLUENZA A PCR Neg for Influ A (NEG); INFLUENZA B PCR Neg for Influ B (NEG)
--- NOTE | 2016-12-06 10:34 | CARDIOLOGY CONSULTATION ---
DATE OF CONSULTATION: 12/06/2016 HISTORY OF PRESENT ILLNESS: Ernst Cortez is an 81-year-old male seen in cardiology consultation per the request of Bethany Rome PA-C for the evaluation of congestive heart failure. The patient's primary care provider is Dr. Cabrera and he typically follows with Dr. Haynes of our practice as well as follows closely in our congestive heart failure clinic. He has a complex past cardiac history as described below including advanced ischemic cardiomyopathy with ejection fraction of less than 15% and at baseline, has a [place] [employer] functional class 3 heart failure. The patient has had progression of his underlying cardiac symptoms with noted admissions to [facility] for cardiac complaints in July 2016, September 2016, 11/08/2016, 11/28/2016, and 12/05/2016. When he was admitted a week ago, he was found to have acute renal insufficiency with creatinine in the mid 3s, worse than his typical baseline of 2 and hyperkalemia. His diuretics were adjusted and his furosemide was reduced to 20 mg b.i.d. and spironolactone and lisinopril were discontinued. Yesterday, he states that he had a busy day. He attended 2 doctor appointments and checked the oil on a car. By the afternoon and evening hours, he had progressive shortness of breath. He arrived to the Emergency Room and had an EKG performed on a stat basis on 12/05/2016 at 17:56, revealing ventricular paced rhythm at 96 beats per minute. The patient was noted to have significant hypoxia with pulse oximetry down to 88% and he was placed on BiPAP for respiratory support. Chest x-ray revealed pulmonary edema and possible underlying infiltrate. He had been hospitalized and placed in the ICU. He has received antibiotics for possible underlying pneumonia and received 40 mg of IV furosemide at 20:47 last night and another 40 mg p.o. this morning. He has already been seen by nephrology. When I examined the patient in the ICU room 109, he had recently been taken off BiPAP approximately 25 minutes beforehand and was comfortable sitting in a bedside chair. His pulse oximetry was noted to be 88%-90%. Lungs were clear at the time of my assessment. PAST MEDICAL HISTORY: 1. Longstanding history of ischemic cardiomyopathy, the patient had last undergone a nuclear stress testing on 11/21/2015 revealing scar in the anterior wall, apical wall, anteroseptal wall, and apical inferior segment with calculated ejection fraction of 24% at that time. 2. Most recent transthoracic echocardiogram took place at [facility] on 07/28/2016 with severe global left ventricular hypokinesis and ejection fraction less than 15%. 3. History of remote coronary artery bypass grafting x4 in 1990 following his past myocardial infarction. 4. Status post single chamber pacemaker defibrillator with upgrade to biventricular pacemaker defibrillator with [employer] device in July 2009. Recently, his device has been found to have increased ventricular pacing thresholds, resulting in premature battery depletion. 5. History of paroxysmal atrial fibrillation/atrial flutter. 6. Recent diagnosis of underlying atrial tachycardia. 7. History of peripheral vascular disease status post percutaneous peripheral vascular intervention of the left lower extremity in 2006, 2013 and again in June 2016. 8. Status post spine surgery with Dr. Reyna in 2011. 9. Chronic renal insufficiency with recent new baseline creatinine in the 2 mg per deciliter range. 10. Recent hyperkalemia. 11. Type 2 diabetes mellitus. 12. Dyslipidemia. PAST SURGICAL HISTORY: Notable for cardiac catheterization, coronary artery bypass grafting x4, pacer and defibrillator implants, and lumbar surgery as noted above. FAMILY HISTORY: Father of lung cancer at age 75. Father of what sounds like a ruptured abdominal aortic aneurysm. SOCIAL HISTORY: The patient is a prior smoker, having quit in 1990 at the time of his initial myocardial infarction. He had smoked 1 pack per day for 10 years. He quit drinking in 1990. He is retired from working in the [employer] industry. He is . COMPREHENSIVE REVIEW OF SYSTEMS: Negative with the exception of that above. ALLERGIES: CIPROFLOXACIN. HOME MEDICATIONS: At the time of admission today: 1. Furosemide 20 mg p.o. b.i.d. 2. Amaryl 1 mg by mouth daily in a.m. 3. Spironolactone 12.5 mg by mouth daily. 4. Xanax 1 mg by mouth 2 times per day as needed for anxiety. 5. Amiodarone 200 mg by mouth 2 times per day. 6. Eliquis 2.5 mg 2 times per day. 7. Calcitriol 0.25 mcg by mouth daily. 8. Clopidogrel 75 mg daily. 9. Levothyroxine 25 mcg by mouth daily. 10. Sublingual nitroglycerin 0.4 mg as needed for chest pain. 11. Pravastatin 80 mg by mouth daily. DIAGNOSTIC DATA: WBC count 22,000 down to 20,000, hemoglobin 12.9, and platelet count 149. INR 1.1. Sodium 139, potassium 3.9, BUN 33, and creatinine 2. Troponin 0.053, 0.448, 0.421, and 0.361 ng/ml. Chest x-ray as outlined in the HPI. EKG repeated this morning reveals ventricular paced rhythm at 71 beats per minute, EKG is inconclusive for evaluation of ischemia due to ventricular paced rhythm. FINAL IMPRESSION: 81-year-old male. 1. Acute decompensation, acute on chronic systolic heart failure due to underlying coronary artery disease and ischemic cardiomyopathy. 2. Stage III chronic kidney disease, creatinine stable at baseline. 3. Recent admission for hyperkalemia, limiting doses of medications; therefore, lisinopril has been discontinued and he was on a low dose of spironolactone and his furosemide had been reduced. 4. History of atrial arrhythmias including atrial fibrillation, atrial flutter, and recent diagnosis of atrial tachycardia. 5. Biventricular pacemaker AICD with increased lead threshold, resulting in early battery depletion. DISCUSSION AND RECOMMENDATIONS: 1. The patient appears clinically improved at present. When he was discharged from the hospital on 11/11/2016, he was to be on furosemide 40 mg by mouth b.i.d. and was also discharged on potassium chloride 20 mEq daily and spironolactone 12.5 mg daily. He was not discharged on an JOSE inhibitor at that time or angiotensin receptor natalia. He had been readmitted in the interim time with acute renal insufficiency and hyperkalemia and therefore, his diuretic therapy was deescalated. 2. At present, his kidney function is stable. Agree with current dose of IV furosemide. Nephrology input is noted and appreciated. 3. His current kidney function is stable to allow current dosing of Eliquis 2.5 mg b.i.d. 4. Earlier this month, attempts were made to change his device settings to allow for more frequent ventricular pacemaking. Attempts were made to alter his rhythm to convert his rhythm to sinus rhythm as compared atrial tachycardia, but this was not successful. He has outpatient followup planned with electrophysiology to discuss how to best manage his device situation given waning generator longevity and ventricular pacing thresholds. Lead revision has been considered, but this would be a very high risk procedure in this patient, who overall appears to have an advanced near end-stage cardiomyopathy. 5. He is clinically improved at present, but his overall prognosis remains poor. 6. In terms of his superimposed pneumonia, he does have a significant leukocytosis. I think that antibiotic therapy is reasonable and given his recent hospital admissions covering him for healthcare associated pneumonia is necessary; however, at the present time, he is on IV doxycycline as well as IV piperacillin/tazobactam and had also received a dose of cefepime. I am going to ask the primary team to see if we can try to reduce his overall IV fluid intake. It does appear that both the cefepime and a previous dose of levofloxacin had been administered and these were canceled. I would favor if we can try to avoid piperacillin/tazobactam due to the amount of IV fluid that needs to be administered with his medication as it does dose to every 8 hours. ADDENDUM, 12/06/16 AT 11:09 AM. Patient's case discussed with Dr Hoffman and critical care. With exception of his leukocytosis, presentation and lab findings consistent with CHF rather than pneumonia. Will DC antibiotics and monitor. His renal function is stable for the current does of Eliquis 2.5 mg BID. MTDD
[2016-12-06] MEDS: INSULIN ASPART 100 UNITS/ML 3 ML PEN SC SCH ×3 (12:08→21:15)
--- NOTE | 2016-12-06 12:22 | Clinical Documentation Query ---
DELICIA Lobato : CLINICAL DOCUMENTATION QUERY Patient is an 81 year old male admitted for evaluation and treatment of acute hypoxic respiratory failure secondary to acute on chronic systolic CHF and MIREILLE on CKD stage 3. Atypical chest pain reported in ED with mildly elevated troponin subsequently noted. EKG inconclusive for ischemic changes as rhythm is paced. Troponin peaked at 0.448 ng/ml. Historical values within normal limits. Patient is being monitored in ICU and has been seen in consultation by cardiology. In your clinical opinion is this patient being managed for: ( ) (Likely/Suspected) Myocardial demand ischemia ( ) Other explanation of clinical findings (Please Explain) ( ) Unable to determine (Please Define) ( ) Need to Discuss ( ) Not Agree The medical record reflects the following clinical findings, treatment, and risk factors. Clinical Indicators: As above Treatment: Plavix, cardiac monitoring, cardiology consultation ,treatment of CHF, treatment of pneumonia Risk Factors: Age, gender, acute on chronic systolic CHF, CAD, DM, dyslipidemia, tachycardia, pneumonia Please clarify and document your clinical opinion in the progress notes and discharge summary. Terms such as "probable", "suspected", "likely", "questionable", "possible", or "still to be ruled out" are acceptable. IF IN AGREEMENT, YOU MUST DOCUMENT ABOVE DIAGNOSTIC STATEMENT IN DAILY PROGRESS NOTES AND DISCHARGE SUMMARY. This document is not part of the patient's record. Thank You, Jose Francisco Hunter, FREDY [phone]
[2016-12-06 12:43] LABS: BUN/CREATININE RATIO 15.5 (10-20); CREATININE 2.1 mg/dl (0.60-1.40); PHOSPHORUS 2.4 mg/dl (2.5-4.9); POTASSIUM 3.6 mmol/L (3.5-5.1)
--- NOTE | 2016-12-06 13:20 | Pharmacy Progress Note ---
Glycemic Control: Progress Nt Date of Service Dec 06, 2016. Scope Glycemic Pharmacist consulted by Anushka ALSTON on 12/05/16 for glycemic control and to write orders per [facility] inpatient glycemic control protocol. Objective Accuchecks BSG (last 24hrs): Test 12/05/16 17:45 12/05/16 19:15 12/05/16 20:50 12/06/16 00:20 Random Glucose 375 mg/dl (70-99) 337 mg/dl (70-99) Bedside Glucose 324 mg/dl (70-99) 218 mg/dl (70-99) Test 12/06/16 01:16 12/06/16 02:48 12/06/16 03:50 12/06/16 04:00 Random Glucose 236 mg/dl (70-99) 198 mg/dl (70-99) Bedside Glucose 209 mg/dl (70-99) 185 mg/dl (70-99) Test 12/06/16 04:48 12/06/16 05:45 12/06/16 06:42 12/06/16 07:52 Bedside Glucose 192 mg/dl (70-99) 180 mg/dl (70-99) 161 mg/dl (70-99) 126 mg/dl (70-99) Test 12/06/16 08:09 12/06/16 08:28 12/06/16 10:54 12/06/16 12:06 Bedside Glucose 136 mg/dl (70-99) 127 mg/dl (70-99) Random Glucose 125 mg/dl (70-99) 118 mg/dl (70-99) Laboratory Data (last 24hrs) Test 12/05/16 17:45 12/05/16 20:50 12/06/16 01:16 12/06/16 04:00 Anion Gap 15.0 mmol/L 11.0 mmol/L 11.0 mmol/L 7.0 mmol/L BUN/Creatinine Ratio 11.8 14.4 14.7 14.4 Blood Urea Nitrogen 28 mg/dl 33 mg/dl 32 mg/dl 33 mg/dl Creatinine 2.40 mg/dl 2.30 mg/dl 2.20 mg/dl 2.30 mg/dl Potassium Level 4.3 mmol/L 4.4 mmol/L 4.2 mmol/L 4.4 mmol/L Sodium Level 136 mmol/L 135 mmol/L 139 mmol/L 138 mmol/L White Blood Count 22.46 K/uL 20.01 K/uL Red Blood Count 4.80 M/uL 4.01 M/uL Hemoglobin 16.0 g/dL 12.9 g/dL Hematocrit 46.3 % 37.5 % Mean Corpuscular Volume 96.5 fL 93.5 fL Mean Corpuscular Hemoglobin 33.3 pg 32.2 pg Mean Corpuscular Hemoglobin Concent 34.6 g/dl 34.4 g/dl Platelet Count 275 K/uL 149 K/uL Mean Platelet Volume 9.3 fL 8.7 fL Neutrophils (%) (Auto) 89.5 % 91.3 % Lymphocytes (%) (Auto) 4.6 % 1.8 % Monocytes (%) (Auto) 4.0 % 6.4 % Eosinophils (%) (Auto) 0.2 % 0.0 % Basophils (%) (Auto) 0.2 % 0.0 % Neutrophils # (Auto) 20.10 K/uL 18.25 K/uL Lymphocytes # (Auto) 1.04 K/uL 0.37 K/uL Monocytes # (Auto) 0.89 K/uL 1.28 K/uL Eosinophils # (Auto) 0.05 K/uL 0.00 K/uL Basophils # (Auto) 0.04 K/uL 0.01 K/uL Test 12/06/16 08:28 12/06/16 12:06 Anion Gap 11.0 mmol/L 11.0 mmol/L BUN/Creatinine Ratio 16.6 15.5 Blood Urea Nitrogen 33 mg/dl 33 mg/dl Creatinine 2.00 mg/dl 2.10 mg/dl Potassium Level 3.9 mmol/L 3.6 mmol/L Sodium Level 137 mmol/L 138 mmol/L HbA1c: 7.2% 11/2016 Recent Pertinent Medications Outpatient Anti-diabetic Regimen: * Glimepiride 1mg PO Q AM * A1c = 7.2 % 11/2016 The patient is currently receiving: * IV insulin infusion per moderate stress protocol; goal range 140-200mg/dL Risk Factors for Insulin Resistance: * Infection: originally felt to have a possible HCAP; however now clinical suspicion points to ADHF w/ volume overload as cause of resp distress * Diet: ordered AHA / T2DM / Fluid Restricted diet. Assessment & Plan ASSESSMENT: 12/06/16 * When patient initially presented his BSGs were in the 300's and his serum osmo was elevated - IV insulin infusion was started for HHS * Insulin infusion continued through the night- BSGs were in the low 100's this AM, below goal range and drip was being held by RN per protocol * Labs reviewed this AM, AG normalized, Bicarb also normalized and BSG less than 200 - and patient was never acidotic * Instructed RN to hold insulin infusion this AM and we will transition to SQ regimen; no need to overlap insulin drip with Lantus for this patient. I had reviewed prior admission data, and he usually does not require basal insulin - only correctional and prandial insulin. * Will give a single low dose of Lantus x 1 this AM and re-evaluate basal needs tomorrow, but I suspect he likely will require little to none * Novolog doses were based upon prior admission data PLAN FOR INPATIENT GLYCEMIC CONTROL: * D/C insulin drip * Lantus 8 units SQ x 1 dose only - reevaluate tomorrow * Novolog SQ ACHS * Correction factor of 35 mg/dl/unit * Carb ratio of 1 unit per 13 grams CHO consumed * Goal range of Low 130 mg/dL - High 160 mg/dL RECOMMENDATIONS FOR DISCHARGE: * * Please note that the plan above was derived based on current level of insulin resistance and hospital stress. These recommendations are appropriate for inpatient admission only. Plan of care upon discharge will need to be reassessed to avoid potential outpatient hypo/hyperglycemia. Thank you.
--- NOTE | 2016-12-06 13:26 | DIAGNOSTIC IMAGING REPORT ---
CHEST ONE VIEW PORTABLE CLINICAL HISTORY: CHF, PNEUMONIA dyspnea COMPARISON STUDY: 12/05/2016 FINDINGS: Moderate cardiomegaly. Findings of pulmonary edema slightly improved. Diaphragms smooth. Slight chronic blunting right lateral gastric angle. IMPRESSION: Pulmonary edema slightly improved radiographically from the prior study. Electronically signed by: Arie Curry M.D. 12/06/2016 1:24 PM Dictated Date/Time: 12/06/2016 1:23 PM
--- NOTE | 2016-12-06 16:27 | Progress Note ---
Medicine Progress Note Date & Time of Visit: Dec 06, 2016 at 16:01. Subjective Pt was seen and examined Lying in bed with no acute distress Pt said that his breathing improved denies any chest pain, palpitation, dizziness and palpitation. Objective Last 8 Hrs Date Time Temp Pulse Resp B/P Pulse Ox O2 Delivery O2 Flow Rate FiO2 12/06/16 14:02 70 18 /76 89 12/06/16 14:00 70 18 /76 89 12/06/16 13:50 70 26 95 12/06/16 12:50 70 24 94 12/06/16 12:35 70 25 95 12/06/16 12:20 70 27 92 12/06/16 12:05 71 22 87 12/06/16 12:01 70 29 119/65 95 12/06/16 12:00 97 Mask 12/06/16 12:00 70 19 119/65 98 Mask 12/06/16 11:50 71 23 93 12/06/16 10:00 70 19 109/54 98 Mask Physical Exam: General- No acute distress Head- atraumatic Eyes- PERRL, EOMI ENT- oropharynx clear Neck- supple, no JVD, no adenopathy Lungs- clear to auscultation, no wheezing Heart- regular rhythm; no murmur Abdomen- normal bowel sounds, soft Extremities- no pretibial edema, no calf tenderness Neuro- alert, oriented x 3; PERRL, EOMI; no facial palsy Skin- warm & dry Laboratory Results: Last 24 Hours Test 12/05/16 17:43 12/05/16 17:45 12/05/16 18:44 12/05/16 19:15 Osmolality 314 mOsm/kg Procalcitonin 0.32 ng/mL White Blood Count 22.46 K/uL Red Blood Count 4.80 M/uL Hemoglobin 16.0 g/dL Hematocrit 46.3 % Mean Corpuscular Volume 96.5 fL Mean Corpuscular Hemoglobin 33.3 pg Mean Corpuscular Hemoglobin Concent 34.6 g/dl Platelet Count 275 K/uL Mean Platelet Volume 9.3 fL Neutrophils (%) (Auto) 89.5 % Lymphocytes (%) (Auto) 4.6 % Monocytes (%) (Auto) 4.0 % Eosinophils (%) (Auto) 0.2 % Basophils (%) (Auto) 0.2 % Neutrophils # (Auto) 20.10 K/uL Lymphocytes # (Auto) 1.04 K/uL Monocytes # (Auto) 0.89 K/uL Eosinophils # (Auto) 0.05 K/uL Basophils # (Auto) 0.04 K/uL RDW Standard Deviation 49.3 fL RDW Coefficient of Variation 13.9 % Immature Granulocyte % (Auto) 1.5 % Immature Granulocyte # (Auto) 0.34 K/uL Hypersegmented Polys 1+ Prothrombin Time 11.3 SECONDS Prothromb Time International Ratio 1.1 Activated Partial Thromboplast Time 28.3 SECONDS Partial Thromboplastin Ratio 1.1 Sodium Level 136 mmol/L Potassium Level 4.3 mmol/L Chloride Level 101 mmol/L Carbon Dioxide Level 20 mmol/L Anion Gap 15.0 mmol/L Blood Urea Nitrogen 28 mg/dl Creatinine 2.40 mg/dl Est Creatinine Clear Calc Drug Dose 27.5 ml/min Estimated GFR () 28.5 Estimated GFR (Non- 24.6 BUN/Creatinine Ratio 11.8 Random Glucose 375 mg/dl Calcium Level 9.5 mg/dl Total Bilirubin 0.9 mg/dl Aspartate Amino Transf (AST/SGOT) 44 U/L Alanine Aminotransferase (ALT/SGPT) 64 U/L Alkaline Phosphatase 91 U/L Troponin I 0.053 ng/ml Pro-B-Type Natriuretic Peptide 8148 pg/ml Total Protein 7.5 gm/dl Albumin 3.4 gm/dl Globulin 4.1 gm/dl Albumin/Globulin Ratio 0.8 Beta-Hydroxybutyric Acid 5.96 mg/dL Venous Blood pH 7.45 Venous Blood Partial Pressure CO2 30 mmHg Venous Blood Partial Pressure O2 90 mmHg Venous Blood HCO3 21 mmol/L Venous Blood Oxygen Saturation 97.4 % Venous Blood Base Excess -2.0 mmol/L Bedside Glucose 324 mg/dl Test 12/05/16 20:50 12/06/16 00:20 12/06/16 01:16 12/06/16 02:48 Venous Blood pH 7.43 7.48 Venous Blood Partial Pressure CO2 33 mmHg 32 mmHg Venous Blood Partial Pressure O2 75 mmHg 53 mmHg Venous Blood HCO3 21 mmol/L 23 mmol/L Venous Blood Oxygen Saturation 95.4 % 88.8 % Venous Blood Base Excess -2.5 mmol/L 0.3 mmol/L Sodium Level 135 mmol/L 139 mmol/L Potassium Level 4.4 mmol/L 4.2 mmol/L Chloride Level 103 mmol/L 105 mmol/L Carbon Dioxide Level 21 mmol/L 23 mmol/L Anion Gap 11.0 mmol/L 11.0 mmol/L Blood Urea Nitrogen 33 mg/dl 32 mg/dl Creatinine 2.30 mg/dl 2.20 mg/dl Est Creatinine Clear Calc Drug Dose 28.7 ml/min 30.0 ml/min Estimated GFR () 30.0 31.6 Estimated GFR (Non- 25.9 27.3 BUN/Creatinine Ratio 14.4 14.7 Random Glucose 337 mg/dl 236 mg/dl Lactic Acid Level 3.3 mmol/L Calcium Level 8.6 mg/dl 8.7 mg/dl Phosphorus Level 2.9 mg/dl 2.8 mg/dl Magnesium Level 1.8 mg/dl 2.0 mg/dl Beta-Hydroxybutyric Acid 2.34 mg/dL Bedside Glucose 218 mg/dl 209 mg/dl Total Creatine Kinase 160 U/L Creatine Kinase MB 3.5 ng/ml Creatine Kinase MB Ratio 2.2 Troponin I 0.448 ng/ml Test 12/06/16 03:50 12/06/16 04:00 12/06/16 04:10 12/06/16 04:48 Bedside Glucose 185 mg/dl 192 mg/dl White Blood Count 20.01 K/uL Red Blood Count 4.01 M/uL Hemoglobin 12.9 g/dL Hematocrit 37.5 % Mean Corpuscular Volume 93.5 fL Mean Corpuscular Hemoglobin 32.2 pg Mean Corpuscular Hemoglobin Concent 34.4 g/dl Platelet Count 149 K/uL Mean Platelet Volume 8.7 fL Neutrophils (%) (Auto) 91.3 % Lymphocytes (%) (Auto) 1.8 % Monocytes (%) (Auto) 6.4 % Eosinophils (%) (Auto) 0.0 % Basophils (%) (Auto) 0.0 % Neutrophils # (Auto) 18.25 K/uL Lymphocytes # (Auto) 0.37 K/uL Monocytes # (Auto) 1.28 K/uL Eosinophils # (Auto) 0.00 K/uL Basophils # (Auto) 0.01 K/uL RDW Standard Deviation 47.1 fL RDW Coefficient of Variation 13.7 % Immature Granulocyte % (Auto) 0.5 % Immature Granulocyte # (Auto) 0.10 K/uL Venous Blood pH 7.43 Venous Blood Partial Pressure CO2 42 mmHg Venous Blood Partial Pressure O2 25 mmHg Venous Blood HCO3 27 mmol/L Venous Blood Oxygen Saturation > 60.0 % Venous Blood Base Excess 2.3 mmol/L Sodium Level 138 mmol/L Potassium Level 4.4 mmol/L Chloride Level 103 mmol/L Carbon Dioxide Level 28 mmol/L Anion Gap 7.0 mmol/L Blood Urea Nitrogen 33 mg/dl Creatinine 2.30 mg/dl Est Creatinine Clear Calc Drug Dose 28.7 ml/min Estimated GFR () 30.0 Estimated GFR (Non- 25.9 BUN/Creatinine Ratio 14.4 Random Glucose 198 mg/dl Calcium Level 8.8 mg/dl Phosphorus Level 2.8 mg/dl Magnesium Level 2.1 mg/dl Total Creatine Kinase 157 U/L Creatine Kinase MB 3.3 ng/ml Creatine Kinase MB Ratio 2.1 Troponin I 0.421 ng/ml Influenza Type A (RT-PCR) Neg for Influ A Influenza Type B (RT-PCR) Neg for Influ B Test 12/06/16 05:45 12/06/16 06:42 12/06/16 07:52 12/06/16 08:09 Bedside Glucose 180 mg/dl 161 mg/dl 126 mg/dl 136 mg/dl Test 12/06/16 08:28 12/06/16 10:54 12/06/16 12:06 12/06/16 16:00 Venous Blood pH 7.44 7.40 Venous Blood Partial Pressure CO2 39 mmHg Venous Blood Partial Pressure O2 31 mmHg Venous Blood HCO3 26 mmol/L Venous Blood Oxygen Saturation < 60.0 % Venous Blood Base Excess 2.1 mmol/L Sodium Level 137 mmol/L 138 mmol/L Potassium Level 3.9 mmol/L 3.6 mmol/L Chloride Level 103 mmol/L 101 mmol/L Carbon Dioxide Level 23 mmol/L 26 mmol/L Anion Gap 11.0 mmol/L 11.0 mmol/L Blood Urea Nitrogen 33 mg/dl 33 mg/dl Creatinine 2.00 mg/dl 2.10 mg/dl Est Creatinine Clear Calc Drug Dose 33.2 ml/min 31.6 ml/min Estimated GFR () 35.5 33.4 Estimated GFR (Non- 30.6 28.9 BUN/Creatinine Ratio 16.6 15.5 Random Glucose 125 mg/dl 118 mg/dl Calcium Level 8.9 mg/dl 9.0 mg/dl Phosphorus Level 2.5 mg/dl 2.4 mg/dl Magnesium Level 2.1 mg/dl 2.0 mg/dl Total Creatine Kinase 165 U/L Creatine Kinase MB 3.6 ng/ml Creatine Kinase MB Ratio 2.2 Troponin I 0.361 ng/ml Bedside Glucose 127 mg/dl Date/Time Source Procedure Growth Status 12/05/16 21:11 Blood Blood Culture Pending Received 12/05/16 21:07 Blood Blood Culture Pending Received 12/05/16 22:15 Nasal MRSA DNA Surveillance Screen - Final Specimen Negative for MRSA by DNA Probe Complete Assessment & Plan ACUTE HYPOXIC RESPIRATORY FAILURE Mostly secondary to acute systolic CHF Pulmonary edema slightly improved radiographically from the prior study. Was placed on BiPAP Now off BIPAP and looks comfortable, no accessory muscles used Continue monitor ACUTE SYSTOLIC CHF Decompensated Ischemic cardiomyopathy with EF <15% s/p biventricular pacemaker/ defibrillator Lasix dose decreased on recent hospitalization due to MIREILLE Continue IV Lasix 40 mg Cardiology on board appreciate input monitor I/O Leukocytosis R/O pneumonia WBC 22k on admission, trending down to 20K Received cefepime and Levaquin in ER On Zosyn on doxycycline Lactic acid elevated possible due to hypoxia Procalcitonin normal Flu negative Blood cultures pending Will D/C Zosyn and doxycycline for now since procalcitonin normal that r/o any bacterial infection CXR showed pulmonary edema HHS Underlying DM type 2 Serum osmolality 314 was on insulin drip that was D/C On insulin coverage pharmacy consulted for glycemic coverage MI[place] ON CKD STAGE III Possible cardiorenal syndrome Creat 2.4 on admission; was 1.9 on day of last discharge (Creat elevated to >3 during that admission) Creatine today 2.1 continue monitor BMP Nephrology consulted appreciated Stable MILDLY ELEVATED TROPONIN With atypical chest pain Hx CAD s/p CABG EKG- no evidence of acute ischemia Continue Plavix, statin continue monitor in telemetry PAROXYSMAL ATRIAL FIBRILLATION Currently in paced rhythm Continue amiodarone Continue Eliquis with current dose as per cardio HYPERTENSION BP is stable Continue lasix spironolactone on hold HYPOTHYROIDISM Continue levothyroxine DYSLIPIDEMIA Continue statin DVT PROPHYLAXIS On Eliquis CODE STATUS FULL CODE DISPOSITION Will transfer to Telemetry Consultants: Cardio Nephro Current Inpatient Medications: Current Inpatient Medications Medications (Trade) Dose Ordered Sig/Mireille Route Start Time Stop Time Status Last Admin Dose Admin Acetaminophen (Tylenol Tab) 650 mg Q4H PRN PO 12/05/16 20:30 01/04/17 20:29 Ondansetron HCl (Zofran Inj) 4 mg Q6H PRN IV 12/05/16 20:30 01/04/17 20:29 Miscellaneous Information (Consult Glycemic Management Pharmacy) 1 ea UD PRN N/A 12/05/16 20:30 01/04/17 20:29 Alprazolam (Xanax Tab) 1 mg BID PRN PO 12/05/16 21:00 01/04/17 20:59 Amiodarone HCl (Cordarone Tab) 200 mg BID PO 12/05/16 23:00 01/04/17 22:59 12/06/16 08:06 200 MG Apixaban (Eliquis Tab) 2.5 mg BID PO 12/05/16 23:00 01/04/17 22:59 12/06/16 08:06 2.5 MG Calcitriol (Rocaltrol Cap) 0.25 mcg QAM PO 12/06/16 09:00 01/05/17 08:59 12/06/16 08:06 0.25 MCG Clopidogrel Bisulfate (plAVix TAB) 75 mg QAM PO 12/06/16 09:00 01/05/17 08:59 12/06/16 08:06 75 MG Levothyroxine Sodium (Synthroid Tab) 25 mcg DAILYBB PO 12/06/16 06:00 01/05/17 05:59 12/06/16 06:05 25 MCG Nitroglycerin (Nitrostat Tab) 0.4 mg UD PRN UT 12/05/16 21:00 01/04/17 20:59 Pravastatin Sodium (Pravachol Tab) 80 mg HS PO 12/05/16 23:00 01/04/17 22:59 12/06/16 01:39 80 MG Glucose (Glucose 40% Gel) 15-30 GRAMS 15 GRAMS... UD PRN PO 12/05/16 21:15 01/04/17 21:14 Glucose (Glucose Chew Tab) 4-8 Tablets 4 Tabl... UD PRN PO 12/05/16 21:15 01/04/17 21:14 Dextrose (Dextrose 50% 50ML Syringe) 25-50ML OF 50% DW IV FOR... UD PRN IV 12/05/16 21:15 01/04/17 21:14 Glucagon (Glucagon Inj) 1 mg UD PRN SQ 12/05/16 21:15 01/04/17 21:14 Ipratropium [place] (Atrovent 0.02% 0.5MG/2.5ML Neb) 0.5 mg Q6R INH 12/06/16 03:00 01/05/17 02:59 12/06/16 07:19 0.5 MG Levalbuterol (Xopenex 1.25MG/ 0.5ML Neb) 1.25 mg Q6R INH 12/06/16 03:00 01/05/17 02:59 12/06/16 07:19 1.25 MG Insulin Aspart (novoLOG ASPART) SLIDING SCALE ACHS SC 12/06/16 11:00 01/05/17 10:59 12/06/16 12:08 1 UNITS
[2016-12-06 17:09] LABS: BUN/CREATININE RATIO 15.9 (10-20); CALCIUM 8.6 mg/dl (8.5-10.1); CREATININE 2.1 mg/dl (0.60-1.40); MAGNESIUM 1.9 mg/dl (1.8-2.4); PHOSPHORUS 2.7 mg/dl (2.5-4.9); POTASSIUM 3.8 mmol/L (3.5-5.1)
[2016-12-06] MEDS: ACETAMINOPHEN 325 MG TAB PO PRN (20:21)
[2016-12-07] VITALS (10 sets, daily range): BP systolic 104–110; BP diastolic 50–66; PULSE 65–102; TEMP 36.7–36.8; O2SAT 73–98
[2016-12-07] MEDS: IPRATROPIUM BROMIDE NEB SOLN 0.02% 2.5 ML VIAL INH SCH ×4 (01:43→18:52)
[2016-12-07] MEDS: LEVALBUTEROL 1.25MG/0.5ML NEB INH SCH ×4 (01:43→18:52)
[2016-12-07 06:17] LABS: BASO % 0.1 %; BASO ABS # 0.01 K/uL (0-0.2); COMPLETE YES; EOS % 0.1 %; HEMATOCRIT 35.6 % (42-52); IG% 0.4 %; LYMPH % 3.3 %; LYMPH ABS # 0.56 K/uL (1.2-3.4); MEAN CELL VOLUME 93.9 fL (80-100); MEAN CORPUSCULAR HEMOGLOBIN 31.9 pg (25-34); MEAN PLATELET VOLUME 8.8 fL (7.4-10.4); MONO % 4.5 %; NEUT % 91.6 %; PLATELET COUNT 141 K/uL (130-400); RED BLOOD COUNT 3.79 M/uL (4.7-6.1); WHITE BLOOD COUNT 16.98 K/uL (4.8-10.8)
[2016-12-07] MEDS: LEVOTHYROXINE 25 MCG TAB PO SCH (06:23)
[2016-12-07] MEDS: ACETAMINOPHEN 325 MG TAB PO PRN (06:32)
[2016-12-07 06:52] LABS: BUN/CREATININE RATIO 18.4 (10-20); CALCIUM 8.7 mg/dl (8.5-10.1); CREATININE 1.9 mg/dl (0.60-1.40); POTASSIUM 4.1 mmol/L (3.5-5.1)
[2016-12-07 06:53] LABS: PHOSPHORUS 3.1 mg/dl (2.5-4.9)
[2016-12-07] MEDS ORDERED: FUROSEMIDE INJ 80 MG in SYRINGE 0 ML IV STA (07:45)
--- NOTE | 2016-12-07 07:51 | Nephrology Progress Note ---
Nephrology Progress Note Date of Service: Dec 07, 2016. Subjective 81 yo male with ischemic cardiomyopathy with ckd stage 4 with baseline creatinine around 2 who presented with sob. given lasix 40 iv on first night and 40 yesterday morning and was breathing better and bipap weaned off. last night, pt started to develop chest pain and required initiation of bipap again. having difficulty maintaining sats. urination decreased. Objective Date Time Temp Pulse Resp B/P Pulse Ox O2 Delivery O2 Flow Rate FiO2 12/07/16 04:00 BiPAP 50 12/07/16 04:00 36.8 77 28 110/60 97 BiPAP 50 12/07/16 01:44 70 98 50 12/07/16 01:44 70 22 98 BiPAP/CPAP 50 12/07/16 00:01 36.8 72 26 104/50 97 50 12/07/16 00:01 95 BiPAP 50 12/06/16 21:46 95 27 106/63 96 50 12/06/16 21:40 50 12/06/16 21:31 93 28 96/57 98 50 12/06/16 21:16 91 27 101/56 97 60 12/06/16 21:02 80 16 103/51 95 60 12/06/16 20:46 82 23 89/50 94 60 12/06/16 20:31 85 24 96 BiPAP/CPAP 60 12/06/16 20:31 85 27 102/52 97 60 12/06/16 20:31 85 96 60 12/06/16 20:18 91 31 107/59 94 60 12/06/16 20:01 36.9 88 26 105/64 95 BiPAP 60 12/06/16 20:00 95 BiPAP 60 12/06/16 19:46 83 22 119/63 95 BiPAP 60 12/06/16 19:31 89 24 131/76 97 BiPAP 60 12/06/16 19:16 92 25 137/65 96 BiPAP 60 12/06/16 19:01 84 22 133/74 94 BiPAP 60 12/06/16 18:46 85 27 122/60 97 12/06/16 18:45 89 28 97 12/06/16 18:31 84 28 120/61 96 12/06/16 18:30 77 27 96 12/06/16 18:16 96 25 113/69 97 3/30/17 18:15 82 27 97 12/06/16 18:01 80 28 108/60 95 12/06/16 18:00 78 25 96 12/06/16 17:46 81 28 120/63 96 12/06/16 17:45 80 28 96 12/06/16 17:31 84 26 101/66 94 12/06/16 17:30 84 29 94 12/06/16 17:16 83 24 123/68 92 12/06/16 17:15 88 23 92 12/06/16 17:12 85 23 124/70 93 12/06/16 17:01 81 19 136/74 98 12/06/16 17:00 80 27 98 12/06/16 16:00 70 20 135/71 83 10.0 12/06/16 16:00 92 10.0 12/06/16 14:20 60 22 92 Nasal Cannula 6.0 12/06/16 14:02 70 18 /76 89 12/06/16 14:00 70 18 /76 89 12/06/16 13:50 70 26 95 12/06/16 12:50 70 24 94 12/06/16 12:35 70 25 95 12/06/16 12:20 70 27 92 12/06/16 12:05 71 22 87 12/06/16 12:01 70 29 119/65 95 12/06/16 12:00 97 Mask 12/06/16 12:00 70 19 119/65 98 Mask 12/06/16 11:50 71 23 93 12/06/16 10:00 70 19 109/54 98 Mask 12/06/16 08:00 36.6 70 25 100/55 97 BiPAP 12/06/16 08:00 97 BiPAP 45 Physical Exam: General-aaox3 Eyes-no scleral icterus ENT-mmm Neck-supple Lungs-crackles (bipap) Heart-paced Abdomen-bs+ s/nt/nd Extremities-no c/c/e Neuro-nonfocal Current Inpatient Medications Medications (Trade) Dose Ordered Sig/Mireille Route Start Time Stop Time Status Last Admin Dose Admin Acetaminophen (Tylenol Tab) 650 mg Q4H PRN PO 12/05/16 20:30 01/04/17 20:29 12/07/16 06:32 650 MG Ondansetron HCl (Zofran Inj) 4 mg Q6H PRN IV 12/05/16 20:30 01/04/17 20:29 Miscellaneous Information (Consult Glycemic Management Pharmacy) 1 ea UD PRN N/A 12/05/16 20:30 01/04/17 20:29 Alprazolam (Xanax Tab) 1 mg BID PRN PO 12/05/16 21:00 01/04/17 20:59 Amiodarone HCl (Cordarone Tab) 200 mg BID PO 12/05/16 23:00 01/04/17 22:59 12/06/16 20:24 200 MG Apixaban (Eliquis Tab) 2.5 mg BID PO 12/05/16 23:00 01/04/17 22:59 12/06/16 20:24 2.5 MG Calcitriol (Rocaltrol Cap) 0.25 mcg QAM PO 12/06/16 09:00 01/05/17 08:59 12/06/16 08:06 0.25 MCG Clopidogrel Bisulfate (plAVix TAB) 75 mg QAM PO 12/06/16 09:00 01/05/17 08:59 12/06/16 08:06 75 MG Levothyroxine Sodium (Synthroid Tab) 25 mcg DAILYBB PO 12/06/16 06:00 01/05/17 05:59 12/07/16 06:23 25 MCG Nitroglycerin (Nitrostat Tab) 0.4 mg UD PRN UT 12/05/16 21:00 01/04/17 20:59 Pravastatin Sodium (Pravachol Tab) 80 mg HS PO 12/05/16 23:00 01/04/17 22:59 12/06/16 20:23 80 MG Glucose (Glucose 40% Gel) 15-30 GRAMS 15 GRAMS... UD PRN PO 12/05/16 21:15 01/04/17 21:14 Glucose (Glucose Chew Tab) 4-8 Tablets 4 Tabl... UD PRN PO 12/05/16 21:15 01/04/17 21:14 Dextrose (Dextrose 50% 50ML Syringe) 25-50ML OF 50% DW IV FOR... UD PRN IV 12/05/16 21:15 01/04/17 21:14 Glucagon (Glucagon Inj) 1 mg UD PRN SQ 12/05/16 21:15 4/28/17 21:14 Ipratropium [place] (Atrovent 0.02% 0.5MG/2.5ML Neb) 0.5 mg Q6R INH 12/06/16 03:00 01/05/17 02:59 12/07/16 07:04 0.5 MG Levalbuterol (Xopenex 1.25MG/ 0.5ML Neb) 1.25 mg Q6R INH 12/06/16 03:00 01/05/17 02:59 12/07/16 07:04 1.25 MG Insulin Aspart (novoLOG ASPART) SLIDING SCALE ACHS SC 12/06/16 11:00 01/05/17 10:59 12/06/16 21:15 1 UNITS Last 24 Hours Test 12/06/16 07:52 12/06/16 08:09 12/06/16 08:28 12/06/16 10:54 Bedside Glucose 126 mg/dl 136 mg/dl 127 mg/dl Venous Blood pH 7.44 Venous Blood Partial Pressure CO2 39 mmHg Venous Blood Partial Pressure O2 31 mmHg Venous Blood HCO3 26 mmol/L Venous Blood Oxygen Saturation < 60.0 % Venous Blood Base Excess 2.1 mmol/L Sodium Level 137 mmol/L Potassium Level 3.9 mmol/L Chloride Level 103 mmol/L Carbon Dioxide Level 23 mmol/L Anion Gap 11.0 mmol/L Blood Urea Nitrogen 33 mg/dl Creatinine 2.00 mg/dl Est Creatinine Clear Calc Drug Dose 33.2 ml/min Estimated GFR () 35.5 Estimated GFR (Non- 30.6 BUN/Creatinine Ratio 16.6 Random Glucose 125 mg/dl Calcium Level 8.9 mg/dl Phosphorus Level 2.5 mg/dl Magnesium Level 2.1 mg/dl Total Creatine Kinase 165 U/L Creatine Kinase MB 3.6 ng/ml Creatine Kinase MB Ratio 2.2 Troponin I 0.361 ng/ml Test 12/06/16 12:06 12/06/16 16:10 12/06/16 16:29 12/06/16 19:14 Venous Blood pH 7.40 7.43 Sodium Level 138 mmol/L 138 mmol/L Potassium Level 3.6 mmol/L 3.8 mmol/L Chloride Level 101 mmol/L 101 mmol/L Carbon Dioxide Level 26 mmol/L 26 mmol/L Anion Gap 11.0 mmol/L 11.0 mmol/L Blood Urea Nitrogen 33 mg/dl 33 mg/dl Creatinine 2.10 mg/dl 2.10 mg/dl Est Creatinine Clear Calc Drug Dose 31.6 ml/min 31.6 ml/min Estimated GFR () 33.4 33.4 Estimated GFR (Non- 28.9 28.9 BUN/Creatinine Ratio 15.5 15.9 Random Glucose 118 mg/dl 134 mg/dl Calcium Level 9.0 mg/dl 8.6 mg/dl Phosphorus Level 2.4 mg/dl 2.7 mg/dl Magnesium Level 2.0 mg/dl 1.9 mg/dl Bedside Glucose 156 mg/dl Creatine Kinase MB Ratio Test 12/06/16 20:04 12/06/16 20:26 12/07/16 05:47 12/07/16 06:28 Bedside Glucose 170 mg/dl 184 mg/dl Creatine Kinase MB 1.5 ng/ml Troponin I 0.146 ng/ml White Blood Count 16.98 K/uL Red Blood Count 3.79 M/uL Hemoglobin 12.1 g/dL Hematocrit 35.6 % Mean Corpuscular Volume 93.9 fL Mean Corpuscular Hemoglobin 31.9 pg Mean Corpuscular Hemoglobin Concent 34.0 g/dl Platelet Count 141 K/uL Mean Platelet Volume 8.8 fL Neutrophils (%) (Auto) 91.6 % Lymphocytes (%) (Auto) 3.3 % Monocytes (%) (Auto) 4.5 % Eosinophils (%) (Auto) 0.1 % Basophils (%) (Auto) 0.1 % Neutrophils # (Auto) 15.57 K/uL Lymphocytes # (Auto) 0.56 K/uL Monocytes # (Auto) 0.76 K/uL Eosinophils # (Auto) 0.01 K/uL Basophils # (Auto) 0.01 K/uL RDW Standard Deviation 47.6 fL RDW Coefficient of Variation 13.9 % Immature Granulocyte % (Auto) 0.4 % Immature Granulocyte # (Auto) 0.07 K/uL Sodium Level 137 mmol/L Potassium Level 4.1 mmol/L Chloride Level 100 mmol/L Carbon Dioxide Level 26 mmol/L Anion Gap 11.0 mmol/L Blood Urea Nitrogen 35 mg/dl Creatinine 1.90 mg/dl Est Creatinine Clear Calc Drug Dose 35.0 ml/min Estimated GFR () 37.7 Estimated GFR (Non- 32.6 BUN/Creatinine Ratio 18.4 Random Glucose 175 mg/dl Calcium Level 8.7 mg/dl Phosphorus Level 3.1 mg/dl Magnesium Level 2.0 mg/dl Procalcitonin 8.76 ng/mL Assessment & Plan ckd stage 4-urinating less, would like to place smiley and giving 80mg of iv lasix now. ok with creatinine trending up. we need to diurese patient aggressively this am to help with oxygenation. pt with chest discomfort and hypoxia requiring bipap. creatinine stable.
[2016-12-07] MEDS ORDERED: FUROSEMIDE 40 MG/4 ML VIAL ONE (07:57)
[2016-12-07] MEDS: APIXABAN 2.5 MG TAB PO SCH (08:53)
[2016-12-07] MEDS: AMIODARONE 200 MG TAB PO SCH (08:53)
[2016-12-07] MEDS: CLOPIDOGREL BISULFATE 75 MG TAB PO SCH (08:53)
[2016-12-07] MEDS: CALCITRIOL 0.25 MCG CAP PO SCH (08:53)
[2016-12-07] MEDS: INSULIN ASPART 100 UNITS/ML 3 ML PEN SC SCH ×3 (08:56→17:21)
[2016-12-07] MEDS ORDERED: MoRPHine SULFATE 2 MG/ML CARP IV STA (10:11)
--- NOTE | 2016-12-07 10:20 | Pharmacy Progress Note ---
Glycemic Control: Progress Nt Date of Service Dec 07, 2016. Scope Glycemic Pharmacist consulted by Dr Rome on 12/05/16 for glycemic control and to write orders per [facility] inpatient glycemic control protocol. Objective Accuchecks BSG (last 24hrs): Test 12/06/16 10:54 12/06/16 12:06 12/06/16 16:10 12/06/16 16:29 Bedside Glucose 127 mg/dl (70-99) 156 mg/dl (70-99) Random Glucose 118 mg/dl (70-99) 134 mg/dl (70-99) Test 12/06/16 20:04 12/07/16 05:47 12/07/16 06:28 Bedside Glucose 170 mg/dl (70-99) 184 mg/dl (70-99) Random Glucose 175 mg/dl (70-99) Laboratory Data (last 24hrs) Test 12/06/16 12:06 12/06/16 16:29 12/07/16 05:47 Anion Gap 11.0 mmol/L 11.0 mmol/L 11.0 mmol/L BUN/Creatinine Ratio 15.5 15.9 18.4 Blood Urea Nitrogen 33 mg/dl 33 mg/dl 35 mg/dl Creatinine 2.10 mg/dl 2.10 mg/dl 1.90 mg/dl Potassium Level 3.6 mmol/L 3.8 mmol/L 4.1 mmol/L Sodium Level 138 mmol/L 138 mmol/L 137 mmol/L White Blood Count 16.98 K/uL Red Blood Count 3.79 M/uL Hemoglobin 12.1 g/dL Hematocrit 35.6 % Mean Corpuscular Volume 93.9 fL Mean Corpuscular Hemoglobin 31.9 pg Mean Corpuscular Hemoglobin Concent 34.0 g/dl Platelet Count 141 K/uL Mean Platelet Volume 8.8 fL Neutrophils (%) (Auto) 91.6 % Lymphocytes (%) (Auto) 3.3 % Monocytes (%) (Auto) 4.5 % Eosinophils (%) (Auto) 0.1 % Basophils (%) (Auto) 0.1 % Neutrophils # (Auto) 15.57 K/uL Lymphocytes # (Auto) 0.56 K/uL Monocytes # (Auto) 0.76 K/uL Eosinophils # (Auto) 0.01 K/uL Basophils # (Auto) 0.01 K/uL HbA1c: Item Value Date Time Hemoglobin A1c 7.2 % H 11/29/16 0735 Estimated Average Glucose 160 mg/dl 11/29/16 0735 Recent Pertinent Medications Outpatient Anti-diabetic Regimen: * Glimepiride 1mg PO Q AM * A1c = 7.2 % 11/2016 The patient is currently receiving: * Basal insulin: Lantus 8 units X 1 given 12/06 in the AM * Correctional Insulin: Novolog Correction per scale ACHS Goal Range: Low 130 mg/dL - High 160 mg/dL Correction Factor: 35 mg/dL/unit * Prandial insulin: Per carb ratio of 1 unit per 13 grams CHO consumed Risk Factors for Insulin Resistance: * Infection: originally felt to have a possible HCAP; however now clinical suspicion points to ADHF w/ volume overload as cause of resp distress * Diet: ordered AHA / T2DM / Fluid Restricted diet. Assessment & Plan ASSESSMENT: 12/06/16 * When patient initially presented his BSGs were in the 300's and his serum osmo was elevated - IV insulin infusion was started for HHS * Insulin infusion continued through the night- BSGs were in the low 100's this AM, below goal range and drip was being held by RN per protocol * Labs reviewed this AM, AG normalized, Bicarb also normalized and BSG less than 200 - and patient was never acidotic * Instructed RN to hold insulin infusion this AM and we will transition to SQ regimen; no need to overlap insulin drip with Lantus for this patient. I had reviewed prior admission data, and he usually does not require basal insulin - only correctional and prandial insulin. * Will give a single low dose of Lantus x 1 this AM and re-evaluate basal needs tomorrow, but I suspect he likely will require little to none * Novolog doses were based upon prior admission data 12/07/16 * Patient received ~10 units of insulin yesterday * 8 units of basal insulin * 2 units of prandial/correctional insulin * BSGs ranging 127 -170 over the past 24hrs * Anticipating insulin regimen can be continued X 24 hours with reassessment in the AM * AM Fasting BSG = 184 - consider giving additional basal if patient remains > 180 mg/dL PLAN FOR INPATIENT GLYCEMIC CONTROL: * Hold outpatient oral diabetes medications * Hold off on additional basal insulin at this time * Correctional Insulin with NOVOLOG per scale ACHS or Q6hrs while NPO * Goal Range: Low 130 mg/dL - High 160 mg/dL * Correction Factor: 35 mg/dL/unit * Nutritional / Prandial insulin per carb ratio of 1 unit per 13 grams CHO consumed * Please note that the plan above was derived based on current level of insulin resistance and hospital stress. These recommendations are appropriate for inpatient admission only. Plan of care upon discharge will need to be reassessed to avoid potential outpatient hypo/hyperglycemia. Thank you.
[2016-12-07] MEDS ORDERED: DOXYCYCLINE HYCLATE 100 MG CAP PO ONE (10:44)
[2016-12-07 11:23] LABS: URINE APPEARANCE CLEAR (CLEAR); URINE BILIRUBIN NEG (NEG); URINE COLOR YELLOW; URINE NITRITE NEG (NEG); URINE SPECIFIC GRAVITY 1.016 (1.000-1.030); UROBILINOGEN NEG (NEG); ZZUR CULT IF INDIC CLEAN CATCH NO
[2016-12-07 11:30] LABS: MANUAL MICROSCOPIC REQUIRED? NO; REVIEW REQ? NO
--- NOTE | 2016-12-07 11:30 | Cardiology Follow-Up ---
Subjective General Date of Service: Dec 07, 2016. Chief Complaint: follow up shortness of breath Pt evaluation today including: conversation w/ patient, conversation w/ family , physical exam, conversation w/ vmware consultant History of Present Illness The patient is a 81 year old male seen in follow up. Patient with progressive SOB yesterday and last night. He has chest discomfort, that perhaps is not angina as he states he has chronic chest wall pain due to his past sternotomy. Patient had already been assessed by nephrology and 80 mg of IV lasix administered, smiley placed. Pt more comfortable. SBP 100-110 mm hg. Telemetry and EKG reveal ventricualar pacing at 70 bpm, rare PVCs. Allergies Coded Allergies: Ciprofloxacin (Verified Allergy, Unknown, UNKNOWN, 12/05/16) FROM ENDO PRE-PROCEDURE ORDERSET Social History Smoking Status: Former Smoker Hx Tobacco Use In Past Year?: No Hx Alcohol Use - Type And Amou: No Hx Substance Use - Type And Am: No Problem List Medical Problems: (1) CHF (congestive heart failure) Status: Acute (2) CHF exacerbation Status: Acute (3) Chronic kidney disease Status: Acute (4) Elevated troponin Status: Acute (5) Exertional chest pain Status: Acute (6) Hyperkalemia Status: Acute (7) Left sided chest pain Status: Acute (8) Leukocytosis Status: Acute (9) Leukocytosis Status: Acute (10) Pulmonary infiltrate Status: Acute (11) Renal failure Status: Acute Physical Exam Vital Signs Last Vital Signs Documentation Date Time Temp Pulse Resp B/P Pulse Ox O2 Delivery O2 Flow Rate FiO2 12/07/16 07:52 70 98 50 12/07/16 07:50 20 BiPAP/CPAP 12/07/16 04:00 36.8 110/60 12/06/16 16:00 10.0 Physical Exam Constitutional: Level of Distress: NAD Head: normocephalic Neck: supple Lungs: Auscultation: no wheezing, no rales/crackles, no rhonchi Cardiovascular: Heart Auscultation: RRR, no murmurs Abdomen: Inspection & Palpation: soft Extremities: no cyanosis, no edema Neurologic: Gait & Station: pertinent finding (no focal deficits ) Assessment and Plan Assessment and Plan FINAL IMPRESSION: 81-year-old male. 1. Acute decompensation, acute on chronic systolic heart failure due to underlying coronary artery disease and ischemic cardiomyopathy with severe LV systolic dysfunction 2. CKD, recent MIREILLE, creatinine stable at present. 3. Chest walll pain. 4. History of atrial arrhythmias including atrial fibrillation, atrial flutter, and recent diagnosis of atrial tachycardia. 5. Biventricular pacemaker AICD with increased lead threshold, resulting in early battery depletion. RECOMMENDATIONS: Intensify diuretic therapy as tolerated, agree with furosemide 80 mg this am, will adjust next dose based on his progress. Morphine 1 mg IV x 1 to ease work of breathing. Antibiotics DC'd yesterday, repeat procalcitonin now elevated, agree with resuming antibiotics with agents that minimized additional IVF input. Continue Eliquis for stroke and dvt prophylaxis. Had discussion with patient, daughter. He has advanced, nearing end stage cardiomyopathy. Prognosis is poor. Laboratory Results Last 24 Hours Test 12/06/16 12:06 12/06/16 16:10 12/06/16 16:29 12/06/16 19:14 Venous Blood pH 7.40 7.43 Sodium Level 138 mmol/L 138 mmol/L Potassium Level 3.6 mmol/L 3.8 mmol/L Chloride Level 101 mmol/L 101 mmol/L Carbon Dioxide Level 26 mmol/L 26 mmol/L Anion Gap 11.0 mmol/L 11.0 mmol/L Blood Urea Nitrogen 33 mg/dl 33 mg/dl Creatinine 2.10 mg/dl 2.10 mg/dl Est Creatinine Clear Calc Drug Dose 31.6 ml/min 31.6 ml/min Estimated GFR () 33.4 33.4 Estimated GFR (Non- 28.9 28.9 BUN/Creatinine Ratio 15.5 15.9 Random Glucose 118 mg/dl 134 mg/dl Calcium Level 9.0 mg/dl 8.6 mg/dl Phosphorus Level 2.4 mg/dl 2.7 mg/dl Magnesium Level 2.0 mg/dl 1.9 mg/dl Bedside Glucose 156 mg/dl Creatine Kinase MB Ratio Test 12/06/16 20:04 12/06/16 20:26 12/07/16 05:47 12/07/16 06:28 Bedside Glucose 170 mg/dl 184 mg/dl Creatine Kinase MB 1.5 ng/ml Troponin I 0.146 ng/ml White Blood Count 16.98 K/uL Red Blood Count 3.79 M/uL Hemoglobin 12.1 g/dL Hematocrit 35.6 % Mean Corpuscular Volume 93.9 fL Mean Corpuscular Hemoglobin 31.9 pg Mean Corpuscular Hemoglobin Concent 34.0 g/dl Platelet Count 141 K/uL Mean Platelet Volume 8.8 fL Neutrophils (%) (Auto) 91.6 % Lymphocytes (%) (Auto) 3.3 % Monocytes (%) (Auto) 4.5 % Eosinophils (%) (Auto) 0.1 % Basophils (%) (Auto) 0.1 % Neutrophils # (Auto) 15.57 K/uL Lymphocytes # (Auto) 0.56 K/uL Monocytes # (Auto) 0.76 K/uL Eosinophils # (Auto) 0.01 K/uL Basophils # (Auto) 0.01 K/uL RDW Standard Deviation 47.6 fL RDW Coefficient of Variation 13.9 % Immature Granulocyte % (Auto) 0.4 % Immature Granulocyte # (Auto) 0.07 K/uL Sodium Level 137 mmol/L Potassium Level 4.1 mmol/L Chloride Level 100 mmol/L Carbon Dioxide Level 26 mmol/L Anion Gap 11.0 mmol/L Blood Urea Nitrogen 35 mg/dl Creatinine 1.90 mg/dl Est Creatinine Clear Calc Drug Dose 35.0 ml/min Estimated GFR () 37.7 Estimated GFR (Non- 32.6 BUN/Creatinine Ratio 18.4 Random Glucose 175 mg/dl Calcium Level 8.7 mg/dl Phosphorus Level 3.1 mg/dl Magnesium Level 2.0 mg/dl Procalcitonin 8.76 ng/mL Test 12/07/16 10:45
[2016-12-07] MEDS ORDERED: CEFEPIME IV 1,000 MG in DEXTROSE 5% 100ML 100 ML IV SCH (14:00)
--- NOTE | 2016-12-07 14:34 | Palliative Care Consultation ---
Consultation Date of Consultation: Dec 07, 2016. Requesting Physician: Dr. Ortiz Attending Physician: Dr. Ortiz Reason for Consultation: Goals of care History of Present Illness This 81 year old male patient presented to the ED two days ago with complaints of shortness of breath. This is his fourth admission to hospital in the last three months with similar complaints, most recently admitted from 11/28-12/01 with MIREILLE and CHF exacerbation. He was discharged home with home where he lives with his . This patient has a very significant past medical history of cardiomyopathy, EF 15%, CABG x4 vessels, CKD stage III, sustained Vtach s/p pacer/ICD, CAD, DM, Htn, and spinal stenosis. He is currently being treated for his CHF, MIREILLE, cardiomyopathy, and acute respiratory failure. He was requiring Bipap, has been diuresed with IV lasix. CXR showed pulmonary edema yesterday. Being followed by cardiology and nephrology. Troponin was elevated, creatinine is 1.90 today (slightly improved). His overall prognosis is quite poor given his multiple medical conditions, frequent hospitalizations and age. The patient and his family have been discussing goals of care, palliative consulted to assist. I met with the patient, his Demi, granddaughter Julian, another granddaughter, and patient's [id number] in room 109. The patient is awake, alert and oriented. We discussed his current medical condition. The patient and his family are well aware and quite realistic about his poor prognosis. Discussed code status and patient would not want to be resuscitated. Patient and family would like to continue current treatment for now-- see plan below. However, they do not want any escalation of care-- no bipap, CPR, or intubation. They'd like to see if patient can improve at all with the ultimate goal of getting him home with hospice. Past Medical/Surgical History Medical History: CAD CABG x4 vessels CKD stage III DM HTN HLD CHF, EF 15% Cardiomyopathy Spinal stenosis Sustained Vtach s/p pacemaker Social History Smoking Status: Former Smoker History of Alcohol Use: No Drug Use: none Marital Status: Housing Status: lives with family Occupation Status: retired Review of Systems Constitutional: No chills, No fever ENT: No problem reported Respiratory: + dyspnea on exertion, + shortness of breath, No cough Cardiac: + chest pain ("discomfort", epigastric area), No edema Abdomen: No nausea, No pain, No vomiting Male : No problem reported Endo: No problem reported Allergies Coded Allergies: Ciprofloxacin (Verified Allergy, Unknown, UNKNOWN, 12/05/16) FROM ENDO PRE-PROCEDURE ORDERSET Medications Current Inpatient Medications Medications (Trade) Dose Ordered Sig/Mireille Route Start Time Stop Time Status Last Admin Dose Admin Acetaminophen (Tylenol Tab) 650 mg Q4H PRN PO 12/05/16 20:30 01/04/17 20:29 12/07/16 06:32 650 MG Ondansetron HCl (Zofran Inj) 4 mg Q6H PRN IV 12/05/16 20:30 01/04/17 20:29 Miscellaneous Information (Consult Glycemic Management Pharmacy) 1 ea UD PRN N/A 12/05/16 20:30 01/04/17 20:29 Alprazolam (Xanax Tab) 1 mg BID PRN PO 12/05/16 21:00 01/04/17 20:59 Amiodarone HCl (Cordarone Tab) 200 mg BID PO 12/05/16 23:00 01/04/17 22:59 12/07/16 08:53 200 MG Apixaban (Eliquis Tab) 2.5 mg BID PO 12/05/16 23:00 01/04/17 22:59 12/07/16 08:53 2.5 MG Calcitriol (Rocaltrol Cap) 0.25 mcg QAM PO 12/06/16 09:00 01/05/17 08:59 12/07/16 08:53 0.25 MCG Clopidogrel Bisulfate (plAVix TAB) 75 mg QAM PO 12/06/16 09:00 01/05/17 08:59 12/07/16 08:53 75 MG Levothyroxine Sodium (Synthroid Tab) 25 mcg DAILYBB PO 12/06/16 06:00 01/05/17 05:59 12/07/16 06:23 25 MCG Nitroglycerin (Nitrostat Tab) 0.4 mg UD PRN UT 12/05/16 21:00 01/04/17 20:59 Pravastatin Sodium (Pravachol Tab) 80 mg HS PO 12/05/16 23:00 01/04/17 22:59 12/06/16 20:23 80 MG Glucose (Glucose 40% Gel) 15-30 GRAMS 15 GRAMS... UD PRN PO 12/05/16 21:15 01/04/17 21:14 Glucose (Glucose Chew Tab) 4-8 Tablets 4 Tabl... UD PRN PO 12/05/16 21:15 01/04/17 21:14 Dextrose (Dextrose 50% 50ML Syringe) 25-50ML OF 50% DW IV FOR... UD PRN IV 12/05/16 21:15 01/04/17 21:14 Glucagon (Glucagon Inj) 1 mg UD PRN SQ 12/05/16 21:15 01/04/17 21:14 Ipratropium [place] (Atrovent 0.02% 0.5MG/2.5ML Neb) 0.5 mg Q6R INH 12/06/16 03:00 01/05/17 02:59 12/07/16 07:04 0.5 MG Levalbuterol (Xopenex 1.25MG/ 0.5ML Neb) 1.25 mg Q6R INH 12/06/16 03:00 01/05/17 02:59 12/07/16 07:04 1.25 MG Insulin Aspart (novoLOG ASPART) SLIDING SCALE ACHS SC 12/06/16 11:00 01/05/17 10:59 12/07/16 08:56 1 UNITS Doxycycline Hyclate 100 mg 100 mg BID PO 12/07/16 21:00 12/14/16 20:59 Cefepime HCl/ Dextrose (Maxipime IV/D5 100ml) 111.3 ml @ 200 mls/hr Q12H IV 12/07/16 14:00 12/14/16 13:59 Physical Exam Date Time Temp Pulse Resp B/P Pulse Ox O2 Delivery O2 Flow Rate FiO2 12/07/16 12:00 89 Nasal Cannula 6.0 12/07/16 12:00 65 26 108/66 82 Nasal Cannula 6.0 12/07/16 08:00 BiPAP 12/07/16 08:00 36.7 71 22 110/60 96 BiPAP 45 12/07/16 07:52 70 98 50 12/07/16 07:50 70 20 98 BiPAP/CPAP 50 12/07/16 04:00 BiPAP 50 12/07/16 04:00 36.8 77 28 110/60 97 BiPAP 50 12/07/16 01:44 70 98 50 12/07/16 01:44 70 22 98 BiPAP/CPAP 50 12/07/16 00:01 36.8 72 26 104/50 97 50 12/07/16 00:01 95 BiPAP 50 12/06/16 21:46 95 27 106/63 96 50 12/06/16 21:40 50 12/06/16 21:31 93 28 96/57 98 50 12/06/16 21:16 91 27 101/56 97 60 12/06/16 21:02 80 16 103/51 95 60 12/06/16 20:46 82 23 89/50 94 60 12/06/16 20:31 85 24 96 BiPAP/CPAP 60 12/06/16 20:31 85 27 102/52 97 60 12/06/16 20:31 85 96 60 12/06/16 20:18 91 31 107/59 94 60 12/06/16 20:01 36.9 88 26 105/64 95 BiPAP 60 12/06/16 20:00 95 BiPAP 60 12/06/16 19:46 83 22 119/63 95 BiPAP 60 12/06/16 19:31 89 24 131/76 97 BiPAP 60 12/06/16 19:16 92 25 137/65 96 BiPAP 60 12/06/16 19:01 84 22 133/74 94 BiPAP 60 12/06/16 18:46 85 27 122/60 97 12/06/16 18:45 89 28 97 12/06/16 18:31 84 28 120/61 96 12/06/16 18:30 77 27 96 12/06/16 18:16 96 25 113/69 97 12/06/16 18:15 82 27 97 12/06/16 18:01 80 28 108/60 95 12/06/16 18:00 78 25 96 12/06/16 17:46 81 28 120/63 96 12/06/16 17:45 80 28 96 12/06/16 17:31 84 26 101/66 94 12/06/16 17:30 84 29 94 12/06/16 17:16 83 24 123/68 92 12/06/16 17:15 88 23 92 12/06/16 17:12 85 23 124/70 93 12/06/16 17:01 81 19 136/74 98 12/06/16 17:00 80 27 98 12/06/16 16:00 70 20 135/71 83 10.0 12/06/16 16:00 92 10.0 12/06/16 14:20 60 22 92 Nasal Cannula 6.0 General Appearance: no apparent distress, + pertinent finding (appears stated age) Neck: no JVD Respiratory: + decreased breath sounds, + crackles (bilateral bases), + pertinent finding (nasal cannula, pulse ox 84-89%; does appear to have slightly labored respirations) Cardiovascular: no edema, + irregularly irregular (paced on monitor with ST elevation), + normal peripheral pulses Abdomen: normal bowel sounds, non tender, soft, + distended (patient's normal body habitus) Neurologic/Psychiatric: alert, normal mood/affect, oriented x 3 Laboratory Results Last 24 Hours Test 12/06/16 16:10 12/06/16 16:29 12/06/16 19:14 12/06/16 20:04 Bedside Glucose 156 mg/dl 170 mg/dl Venous Blood pH 7.43 Sodium Level 138 mmol/L Potassium Level 3.8 mmol/L Chloride Level 101 mmol/L Carbon Dioxide Level 26 mmol/L Anion Gap 11.0 mmol/L Blood Urea Nitrogen 33 mg/dl Creatinine 2.10 mg/dl Est Creatinine Clear Calc Drug Dose 31.6 ml/min Estimated GFR () 33.4 Estimated GFR (Non- 28.9 BUN/Creatinine Ratio 15.9 Random Glucose 134 mg/dl Calcium Level 8.6 mg/dl Phosphorus Level 2.7 mg/dl Magnesium Level 1.9 mg/dl Creatine Kinase MB Ratio Test 12/06/16 20:26 12/07/16 05:47 12/07/16 06:28 12/07/16 10:45 Creatine Kinase MB 1.5 ng/ml Troponin I 0.146 ng/ml White Blood Count 16.98 K/uL Red Blood Count 3.79 M/uL Hemoglobin 12.1 g/dL Hematocrit 35.6 % Mean Corpuscular Volume 93.9 fL Mean Corpuscular Hemoglobin 31.9 pg Mean Corpuscular Hemoglobin Concent 34.0 g/dl Platelet Count 141 K/uL Mean Platelet Volume 8.8 fL Neutrophils (%) (Auto) 91.6 % Lymphocytes (%) (Auto) 3.3 % Monocytes (%) (Auto) 4.5 % Eosinophils (%) (Auto) 0.1 % Basophils (%) (Auto) 0.1 % Neutrophils # (Auto) 15.57 K/uL Lymphocytes # (Auto) 0.56 K/uL Monocytes # (Auto) 0.76 K/uL Eosinophils # (Auto) 0.01 K/uL Basophils # (Auto) 0.01 K/uL RDW Standard Deviation 47.6 fL RDW Coefficient of Variation 13.9 % Immature Granulocyte % (Auto) 0.4 % Immature Granulocyte # (Auto) 0.07 K/uL Sodium Level 137 mmol/L Potassium Level 4.1 mmol/L Chloride Level 100 mmol/L Carbon Dioxide Level 26 mmol/L Anion Gap 11.0 mmol/L Blood Urea Nitrogen 35 mg/dl Creatinine 1.90 mg/dl Est Creatinine Clear Calc Drug Dose 35.0 ml/min Estimated GFR () 37.7 Estimated GFR (Non- 32.6 BUN/Creatinine Ratio 18.4 Random Glucose 175 mg/dl Calcium Level 8.7 mg/dl Phosphorus Level 3.1 mg/dl Magnesium Level 2.0 mg/dl Procalcitonin 8.76 ng/mL Bedside Glucose 184 mg/dl Urine Color YELLOW Urine Appearance CLEAR Urine pH 5.0 Urine Specific [place] 1.016 Urine Protein NEG Urine Glucose (UA) NEG Urine Ketones NEG Urine Occult Blood TRACE Urine Nitrite NEG Urine Bilirubin NEG Urine Urobilinogen NEG Urine Leukocyte Esterase NEG Urine WBC (Auto) 1-5 /hpf Urine RBC (Auto) 5-10 /hpf Urine Hyaline Casts (Auto) 5-10 /lpf Urine Epithelial Cells (Auto) 10-20 /lpf Urine Bacteria (Auto) NEG Test 12/07/16 12:12 Bedside Glucose 150 mg/dl Assessment & Plan Palliative Performance Scale: 30 % Problem list: SOB Epigastric pain Acute respiratory failure Acute CHF MIREILLE on CKD stage III Elevated troponin Paroxysmal afib Cardiomyopathy Goals of care (Z51.5) Palliative care plan: discussed with patient, patient's Demi, granddaughter Julian, another granddaughter, patient's [id number], and Dr. Ortiz. -Patient wishes to be DNR/DNI. -Continue current treatment, but if patient declines at all he wants to be made comfortable and allow natural . If no improvement in the next 24-48 hours, will likely transition to comfort measures only. If patient improves and is stable, family is considering home with hospice. However, they understand how sick the patient is and this may not be an option. -Family and patient aware that oxygen saturation is low in 80s, the patient does not want the bipap on as it is uncomfortable. Dr. Ortiz aware of this as well. -Pacer/defibrillator is still on. In the case of cardiac arrest, this will need to be turned off as patient does not want to be resuscitated. If patient does improve enough to go home, will need to be turned off. Either way I would recommend having the defibrillator function turned off now. I discussed all of this with patient and family. -Recommend morphine 1mg IV Q1H PRN pain or SOB. Patient is c/o epigastric pain. -Defer to nephrology and cardiology for optimal fluid balance/diuresis. Thank you for allowing me to participate in the care of this nice patient and his family. I will follow as needed.
[2016-12-07] MEDS ORDERED: MoRPHine SULFATE 2 MG/ML CARP IV ONE (15:15)
[2016-12-07] MEDS ORDERED: NURSING VERBAL MED ORDER ONE ×7 (16:30→23:00)
[2016-12-07] MEDS ORDERED: MoRPHine SULFATE 2 MG/ML CARP IV PRN (17:00)
--- NOTE | 2016-12-07 17:04 | Progress Note ---
Medicine Progress Note Date & Time of Visit: Dec 07, 2016 at 16:36. Subjective Pt was seen and examined at bedside family member had bedside (daughter, , sons, grandchildren) Pt is critical, he is holding his sons hands He refused BIPAP, his sat is in the 75 % on 6 L NC Patient wants to be comfortable Family requests to transfer him to 4th floor to a more quiet room palliative care Angi talked to family and patients and code status changed to DNR/DNI and then later to comfort measures only Objective Last 8 Hrs Date Time Temp Pulse Resp B/P Pulse Ox O2 Delivery O2 Flow Rate FiO2 12/07/16 14:14 74 20 87 Nasal Cannula 6.0 12/07/16 12:00 89 Nasal Cannula 6.0 12/07/16 12:00 65 26 108/66 82 Nasal Cannula 6.0 Physical Exam: General- Respiratory distress Head- atraumatic Eyes- PERRL, EOMI ENT- oropharynx clear Neck- supple, no JVD, no adenopathy Lungs- Poor air entry, accessory muscle use Heart- regular rhythm; no murmur Abdomen- normal bowel sounds, soft Extremities- no pretibial edema, no calf tenderness Neuro- alert, oriented, PERRL, EOMI; no facial palsy Skin- warm & dry Laboratory Results: Last 24 Hours Test 12/06/16 19:14 12/06/16 20:04 12/06/16 20:26 12/07/16 05:47 Creatine Kinase MB Ratio Bedside Glucose 170 mg/dl Creatine Kinase MB 1.5 ng/ml Troponin I 0.146 ng/ml White Blood Count 16.98 K/uL Red Blood Count 3.79 M/uL Hemoglobin 12.1 g/dL Hematocrit 35.6 % Mean Corpuscular Volume 93.9 fL Mean Corpuscular Hemoglobin 31.9 pg Mean Corpuscular Hemoglobin Concent 34.0 g/dl Platelet Count 141 K/uL Mean Platelet Volume 8.8 fL Neutrophils (%) (Auto) 91.6 % Lymphocytes (%) (Auto) 3.3 % Monocytes (%) (Auto) 4.5 % Eosinophils (%) (Auto) 0.1 % Basophils (%) (Auto) 0.1 % Neutrophils # (Auto) 15.57 K/uL Lymphocytes # (Auto) 0.56 K/uL Monocytes # (Auto) 0.76 K/uL Eosinophils # (Auto) 0.01 K/uL Basophils # (Auto) 0.01 K/uL RDW Standard Deviation 47.6 fL RDW Coefficient of Variation 13.9 % Immature Granulocyte % (Auto) 0.4 % Immature Granulocyte # (Auto) 0.07 K/uL Sodium Level 137 mmol/L Potassium Level 4.1 mmol/L Chloride Level 100 mmol/L Carbon Dioxide Level 26 mmol/L Anion Gap 11.0 mmol/L Blood Urea Nitrogen 35 mg/dl Creatinine 1.90 mg/dl Est Creatinine Clear Calc Drug Dose 35.0 ml/min Estimated GFR () 37.7 Estimated GFR (Non- 32.6 BUN/Creatinine Ratio 18.4 Random Glucose 175 mg/dl Calcium Level 8.7 mg/dl Phosphorus Level 3.1 mg/dl Magnesium Level 2.0 mg/dl Procalcitonin 8.76 ng/mL Test 12/07/16 06:28 12/07/16 10:45 12/07/16 12:12 Bedside Glucose 184 mg/dl 150 mg/dl Urine Color YELLOW Urine Appearance CLEAR Urine pH 5.0 Urine Specific [place] 1.016 Urine Protein NEG Urine Glucose (UA) NEG Urine Ketones NEG Urine Occult Blood TRACE Urine Nitrite NEG Urine Bilirubin NEG Urine Urobilinogen NEG Urine Leukocyte Esterase NEG Urine WBC (Auto) 1-5 /hpf Urine RBC (Auto) 5-10 /hpf Urine Hyaline Casts (Auto) 5-10 /lpf Urine Epithelial Cells (Auto) 10-20 /lpf Urine Bacteria (Auto) NEG Assessment & Plan ACUTE HYPOXIC RESPIRATORY FAILURE Mostly secondary to acute systolic CHF Pulmonary edema slightly improved radiographically from the prior study on 12/07 BiPAP was resumed, and later discontinue because pt and family refused and pt was made comfort measure only Patient and Family do not want any aggressive management. Family wants pt to go to transfer to a quiet place on the 4th floor Family made aware that pt will not be placed on a heart monitor since code status changed to comfort measure only Will d/c lab and will keep him comfortable. ACUTE SYSTOLIC CHF Decompensated Ischemic cardiomyopathy with EF <15% s/p biventricular pacemaker/ defibrillator Lasix dose decreased on recent hospitalization due to MIREILLE Was on IV Lasix 40 mg Cardiology on board appreciate input monitor I/O Made comfort measure Leukocytosis R/O pneumonia WBC 22k on admission, trending down to 20K Received cefepime and Levaquin in ER On Zosyn on doxycycline Lactic acid elevated possible due to hypoxia Procalcitonin normal Flu negative Blood cultures pending Will D/C Zosyn and doxycycline for now since procalcitonin normal that r/o any bacterial infection CXR showed pulmonary edema 12/07 procalcitonin elevated today doxy and cefepime started this morning Will d/c abx since code status changed to [employer] HHS Underlying DM type 2 Serum osmolality 314 was on insulin drip that was D/C On insulin coverage pharmacy consulted for glycemic coverage MIREILLE ON CKD STAGE III Possible cardiorenal syndrome Creat 2.4 on admission; was 1.9 on day of last discharge (Creat elevated to >3 during that admission) Creatine today 2.1 Nephrology consulted appreciated 12/07 Made [employer] will d/c am lab MILDLY ELEVATED TROPONIN With atypical chest pain Hx CAD s/p CABG EKG- no evidence of acute ischemia Continue Plavix, statin continue monitor in telemetry 12/07 made [employer] d/c tele monitor Family requested to transfer to a quiet room in the 4th fr PAROXYSMAL ATRIAL FIBRILLATION Currently in paced rhythm Continue amiodarone Continue Eliquis with current dose as per cardio 12/07 will d/c anticoagulant since made tripper HYPERTENSION BP is stable Continue lasix spironolactone on hold 12/07 Will d/c BP meds since made [employer] HYPOTHYROIDISM Continue levothyroxine DYSLIPIDEMIA Continue statin DVT PROPHYLAXIS Was On Eliquis CODE STATUS DNR/DNI family changed to comfort measure only DISPOSITION Will transfer to medical/surge Consultants: Cardio Nephro Palliative care Current Inpatient Medications: Current Inpatient Medications Medications (Trade) Dose Ordered Sig/Mireille Route Start Time Stop Time Status Last Admin Dose Admin Acetaminophen (Tylenol Tab) 650 mg Q4H PRN PO 12/05/16 20:30 01/04/17 20:29 12/07/16 06:32 650 MG Ondansetron HCl (Zofran Inj) 4 mg Q6H PRN IV 12/05/16 20:30 01/04/17 20:29 Miscellaneous Information (Consult Glycemic Management Pharmacy) 1 ea UD PRN N/A 12/05/16 20:30 01/04/17 20:29 Alprazolam (Xanax Tab) 1 mg BID PRN PO 12/05/16 21:00 01/04/17 20:59 Amiodarone HCl (Cordarone Tab) 200 mg BID PO 12/05/16 23:00 01/04/17 22:59 12/07/16 08:53 200 MG Apixaban (Eliquis Tab) 2.5 mg BID PO 12/05/16 23:00 01/04/17 22:59 12/07/16 08:53 2.5 MG Calcitriol (Rocaltrol Cap) 0.25 mcg QAM PO 12/06/16 09:00 01/05/17 08:59 12/07/16 08:53 0.25 MCG Clopidogrel Bisulfate (plAVix TAB) 75 mg QAM PO 12/06/16 09:00 01/05/17 08:59 12/07/16 08:53 75 MG Levothyroxine Sodium (Synthroid Tab) 25 mcg DAILYBB PO 12/06/16 06:00 01/05/17 05:59 12/07/16 06:23 25 MCG Nitroglycerin (Nitrostat Tab) 0.4 mg UD PRN UT 12/05/16 21:00 01/04/17 20:59 Pravastatin Sodium (Pravachol Tab) 80 mg HS PO 12/05/16 23:00 01/04/17 22:59 12/06/16 20:23 80 MG Glucose (Glucose 40% Gel) 15-30 GRAMS 15 GRAMS... UD PRN PO 12/05/16 21:15 01/04/17 21:14 Glucose (Glucose Chew Tab) 4-8 Tablets 4 Tabl... UD PRN PO 12/05/16 21:15 01/04/17 21:14 Dextrose (Dextrose 50% 50ML Syringe) 25-50ML OF 50% DW IV FOR... UD PRN IV 12/05/16 21:15 01/04/17 21:14 Glucagon (Glucagon Inj) 1 mg UD PRN SQ 12/05/16 21:15 01/04/17 21:14 Ipratropium [place] (Atrovent 0.02% 0.5MG/2.5ML Neb) 0.5 mg Q6R INH 12/06/16 03:00 01/05/17 02:59 12/07/16 14:11 0.5 MG Levalbuterol (Xopenex 1.25MG/ 0.5ML Neb) 1.25 mg Q6R INH 12/06/16 03:00 01/05/17 02:59 12/07/16 14:11 1.25 MG Insulin Aspart (novoLOG ASPART) SLIDING SCALE ACHS SC 12/06/16 11:00 01/05/17 10:59 12/07/16 08:56 1 UNITS Doxycycline Hyclate 100 mg 100 mg BID PO 12/07/16 20:00 12/14/16 20:59 Cefepime HCl/ Dextrose (Maxipime IV/D5 100ml) 111.3 ml @ 200 mls/hr Q12H IV 12/07/16 14:00 12/14/16 13:59 12/07/16 14:00 200 MLS/HR Miscellaneous Information (Nursing Verbal Med Order) 1 ea ONE ONCE N/A 12/07/16 16:30 12/07/16 16:31 UNV
[2016-12-07] MEDS: MORPHINE SULF/NSS 250MG/250ML IV PRN (17:17)
[2016-12-07] MEDS ORDERED: DOXYCYCLINE HYCLATE 100 MG CAP PO SCH (20:00)
[2016-12-08] MEDS: IPRATROPIUM BROMIDE NEB SOLN 0.02% 2.5 ML VIAL INH SCH ×4 (01:49→19:10)
[2016-12-08] MEDS: LEVALBUTEROL 1.25MG/0.5ML NEB INH SCH ×4 (01:49→19:10)
[2016-12-08] MEDS ORDERED: CEFEPIME IV 1,000 MG in DEXTROSE 5% 100ML 100 ML IV SCH (08:00)
[2016-12-08] MEDS ORDERED: NURSING VERBAL MED ORDER ONE ×2 (18:45→20:30)
[2016-12-08] MEDS ORDERED: LORAZEPAM 2 MG/ML 1 ML VIAL IV PRN (19:00)
--- NOTE | 2016-12-08 21:14 | Progress Note ---
Medicine Progress Note Date & Time of Visit: Dec 08, 2016 at 21:10. Subjective Pt was seen and examined Family member at bedside he is on morphine pump sedated and comfortable Objective Last 8 Hrs Date Time Temp Pulse Resp B/P Pulse Ox O2 Delivery O2 Flow Rate FiO2 12/08/16 15:35 Nasal Cannula 6.0 Physical Exam: General- sedated Head- atraumatic Eyes- eyes closed, pupils reacted ENT- oropharynx clear Neck- supple, no JVD, no adenopathy Lungs- Poor air entry, accessory muscle use Heart- regular rhythm; no murmur Abdomen- normal bowel sounds, soft Extremities- no pretibial edemas Neuro- sedated Skin- warm & dry Assessment & Plan ACUTE HYPOXIC RESPIRATORY FAILURE Mostly secondary to acute systolic CHF Pulmonary edema slightly improved radiographically from the prior study on 12/07 BiPAP was resumed, and later discontinue because pt and family refused and pt was made comfort measure only Patient and Family do not want any aggressive management. Family wants pt to go to transfer to a quiet place on the 4th floor Family made aware that pt will not be placed on a heart monitor since code status changed to comfort measure only Will d/c lab and will keep him comfortable. On comfort measure morphine pump ACUTE SYSTOLIC CHF Decompensated Ischemic cardiomyopathy with EF <15% s/p biventricular pacemaker/ defibrillator Lasix dose decreased on recent hospitalization due to MIREILLE Was on IV Lasix 40 mg Cardiology on board appreciate input monitor I/O Made comfort measure Leukocytosis R/O pneumonia WBC 22k on admission, trending down to 20K Received cefepime and Levaquin in ER On Zosyn on doxycycline Lactic acid elevated possible due to hypoxia Procalcitonin normal Flu negative Blood cultures pending Will D/C Zosyn and doxycycline for now since procalcitonin normal that r/o any bacterial infection CXR showed pulmonary edema 12/07 procalcitonin elevated today doxy and cefepime started this morning Will d/c abx since 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 comfort measure only HHS Underlying DM type 2 Serum osmolality 314 was on insulin drip that was D/C On insulin coverage pharmacy consulted for glycemic coverage MIREILLE ON CKD STAGE III Possible cardiorenal syndrome Creat 2.4 on admission; was 1.9 on day of last discharge (Creat elevated to >3 during that admission) Creatine today 2.1 Nephrology consulted appreciated 12/07 Made WOOD MOLDER will d/c am lab MILDLY ELEVATED TROPONIN With atypical chest pain Hx CAD s/p CABG EKG- no evidence of acute ischemia Continue Plavix, statin continue monitor in telemetry 12/07 made WOOD MOLDER d/c tele monitor Family requested to transfer to a quiet room in the 4th fr PAROXYSMAL ATRIAL FIBRILLATION Currently in paced rhythm Continue amiodarone Continue Eliquis with current dose as per cardio 12/07 will d/c anticoagulant since made clin nurse spec HYPERTENSION BP is stable Continue lasix spironolactone on hold 12/07 Will d/c BP meds since made WOOD MOLDER HYPOTHYROIDISM Continue levothyroxine DYSLIPIDEMIA Continue statin DVT PROPHYLAXIS Was On Eliquis CODE STATUS DNR/DNI family changed to comfort measure only DISPOSITION Comfort measure only Consultants: Cardio Nephro Palliative care Current Inpatient Medications: Current Inpatient Medications Medications (Trade) Dose Ordered Sig/Mireille Route Start Time Stop Time Status Last Admin Dose Admin Ondansetron HCl (Zofran Inj) 4 mg Q6H PRN IV 12/05/16 20:30 01/04/17 20:29 12/07/16 18:44 4 MG Nitroglycerin (Nitrostat Tab) 0.4 mg UD PRN UT 12/05/16 21:00 01/04/17 20:59 Ipratropium [place] (Atrovent 0.02% 0.5MG/2.5ML Neb) 0.5 mg Q6R INH 12/06/16 03:00 01/05/17 02:59 12/07/16 14:11 0.5 MG Levalbuterol 1.25 mg 1.25 mg Q6R INH 12/06/16 03:00 01/05/17 02:59 12/07/16 14:11 1.25 MG Morphine Sulfate/ Dextrose (Morphine Sulf/ Nss 250MG/250ML) 250 ml @ 8 mls/hr Q24H PRN IV 12/07/16 17:00 12/21/16 16:59 12/07/16 17:17 2 MLS/HR Morphine Sulfate 2 mg 2 mg Q1H PRN IV 12/07/16 17:00 12/21/16 16:59 12/07/16 16:40 2 MG Lorazepam/Syringe (Ativan Inj/ Syringe) 1 ml @ 1 mls/min Q2H PRN IV 12/08/16 19:00 01/07/17 18:59 Lorazepam (Ativan Inj) 0.5 mg Q2H PRN IV 12/08/16 19:00 01/07/17 18:59
[2016-12-09] MEDS: LORAZEPAM INJ 0.5 MG in SYRINGE 0.75 ML IV PRN ×2 (01:18→04:38)
[2016-12-09] MEDS: LEVALBUTEROL 1.25MG/0.5ML NEB INH SCH ×2 (01:38→06:54)
[2016-12-09] MEDS: IPRATROPIUM BROMIDE NEB SOLN 0.02% 2.5 ML VIAL INH SCH ×2 (01:38→06:54)
[2016-12-09] MEDS: MORPHINE SULF/NSS 250MG/250ML IV PRN (05:33)
--- NOTE | 2016-12-09 13:17 | Progress Note ---
Medicine Progress Note Date & Time of Visit: Dec 09, 2016 at 13:14. Subjective Pt was seen and examined lying in bed, seems comfortable, sedated family at bedside on morphine pump Objective Last 8 Hrs Date Time Temp Pulse Resp B/P Pulse Ox O2 Delivery O2 Flow Rate FiO2 12/09/16 09:10 Nasal Cannula 6.0 12/09/16 05:21 Nasal Cannula 6.0 Physical Exam: General- sedated, comfortable Head- atraumatic Eyes- eyes closed, pupils reacted ENT- oropharynx clear Neck- supple, no JVD, no adenopathy Lungs- Poor air entry, no accessory muscle use, no tachypneic Heart- regular rhythm; no murmur Abdomen- normal bowel sounds, soft Extremities- no pretibial edemas Neuro- sedated Skin- warm & dry Assessment & Plan ACUTE HYPOXIC RESPIRATORY FAILURE Mostly secondary to acute systolic CHF Pulmonary edema slightly improved radiographically from the prior study on 12/07 BiPAP was resumed, and later discontinue because pt and family refused and pt was made comfort measure only Patient and Family do not want any aggressive management. Family wants pt to go to transfer to a quiet place on the 4th floor Family made aware that pt will not be placed on a heart monitor since code status changed to comfort measure only Will d/c lab and will keep him comfortable. On comfort measure morphine pump ACUTE SYSTOLIC CHF Decompensated Ischemic cardiomyopathy with EF <15% s/p biventricular pacemaker/ defibrillator Lasix dose decreased on recent hospitalization due to MIREILLE Was on IV Lasix 40 mg Cardiology on board appreciate input monitor I/O Made comfort measure Leukocytosis R/O pneumonia WBC 22k on admission, trending down to 20K Received cefepime and Levaquin in ER On Zosyn on doxycycline Lactic acid elevated possible due to hypoxia Procalcitonin normal Flu negative Blood cultures pending Will D/C Zosyn and doxycycline for now since procalcitonin normal that r/o any bacterial infection CXR showed pulmonary edema 12/07 procalcitonin elevated today doxy and cefepime started this morning Will d/c abx since 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 HHS Underlying DM type 2 Serum osmolality 314 was on insulin drip that was D/C On insulin coverage pharmacy consulted for glycemic coverage MIREILLE ON CKD STAGE III Possible cardiorenal syndrome Creat 2.4 on admission; was 1.9 on day of last discharge (Creat elevated to >3 during that admission) Creatine today 2.1 Nephrology consulted appreciated 12/07 Made 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 will d/c am lab MILDLY ELEVATED TROPONIN With atypical chest pain Hx CAD s/p CABG EKG- no evidence of acute ischemia Continue Plavix, statin continue monitor in telemetry 12/07 made 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 d/c tele monitor Family requested to transfer to a quiet room in the 4th fr PAROXYSMAL ATRIAL FIBRILLATION Currently in paced rhythm Continue amiodarone Continue Eliquis with current dose as per cardio 12/07 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 HYPERTENSION BP is stable Continue lasix spironolactone on hold 12/07 Will d/c BP meds since made 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 HYPOTHYROIDISM Continue levothyroxine DYSLIPIDEMIA Continue statin DVT PROPHYLAXIS Was On Eliquis CODE STATUS DNR/DNI family changed to comfort measure only DISPOSITION Comfort measure only Consultants: Cardio Nephro Palliative care Current Inpatient Medications: Current Inpatient Medications Medications (Trade) Dose Ordered Sig/Mireille Route Start Time Stop Time Status Last Admin Dose Admin Ondansetron HCl (Zofran Inj) 4 mg Q6H PRN IV 12/05/16 20:30 01/04/17 20:29 12/07/16 18:44 4 MG Nitroglycerin (Nitrostat Tab) 0.4 mg UD PRN UT 12/05/16 21:00 01/04/17 20:59 Ipratropium [place] (Atrovent 0.02% 0.5MG/2.5ML Neb) 0.5 mg Q6R INH 12/06/16 03:00 01/05/17 02:59 12/07/16 14:11 0.5 MG Levalbuterol 1.25 mg 1.25 mg Q6R INH 12/06/16 03:00 01/05/17 02:59 12/07/16 14:11 1.25 MG Morphine Sulfate/ Dextrose (Morphine Sulf/ Nss 250MG/250ML) 250 ml @ 8 mls/hr Q24H PRN IV 12/07/16 17:00 12/21/16 16:59 12/09/16 05:33 8 MLS/HR Morphine Sulfate 2 mg 2 mg Q1H PRN IV 12/07/16 17:00 12/21/16 16:59 12/07/16 16:40 2 MG Lorazepam/Syringe (Ativan Inj/ Syringe) 1 ml @ 1 mls/min Q2H PRN IV 12/08/16 19:00 01/07/17 18:59 12/09/16 04:38 1 MLS/MIN Lorazepam (Ativan Inj) 0.5 mg Q2H PRN IV 12/08/16 19:00 01/07/17 18:59
[2016-12-09] MEDS ORDERED: NURSING VERBAL MED ORDER ONE (16:15)
[2016-12-09] MEDS ORDERED: LEVALBUTEROL 1.25MG/0.5ML NEB INH PRN (16:30)
[2016-12-09] MEDS ORDERED: IPRATROPIUM BROMIDE NEB SOLN 0.02% 2.5 ML VIAL INH PRN (16:30)
--- NOTE | 2016-12-10 14:14 | Progress Note ---
Medicine Progress Note Date & Time of Visit: Dec 10, 2016 at 14:13. Subjective Pt was seen and examined sedated, comfortable with at bedside shown no sign of agitation or pain Objective Last 8 Hrs Date Time Temp Pulse Resp B/P Pulse Ox O2 Delivery O2 Flow Rate FiO2 12/10/16 08:00 Nasal Cannula 6.0 Physical Exam: General- sedated, comfortable Head- atraumatic Eyes- eyes closed, pupils reacted ENT- oropharynx clear Neck- supple, no JVD, no adenopathy Lungs- Poor air entry, no accessory muscle use, no tachypneic Heart- regular rhythm; no murmur Abdomen- normal bowel sounds, soft Extremities- no pretibial edemas Neuro- sedated Skin- warm & dry Assessment & Plan ACUTE HYPOXIC RESPIRATORY FAILURE Mostly secondary to acute systolic CHF Pulmonary edema slightly improved radiographically from the prior study on 12/07 BiPAP was resumed, and later discontinue because pt and family refused and pt was made comfort measure only Patient and Family do not want any aggressive management. Family wants pt to go to transfer to a quiet place on the 4th floor Family made aware that pt will not be placed on a heart monitor since code status changed to comfort measure only Will d/c lab and will keep him comfortable. On comfort measure morphine pump ACUTE SYSTOLIC CHF Decompensated Ischemic cardiomyopathy with EF <15% s/p biventricular pacemaker/ defibrillator Lasix dose decreased on recent hospitalization due to MIREILLE Was on IV Lasix 40 mg Cardiology on board appreciate input monitor I/O Made comfort measure Leukocytosis R/O pneumonia WBC 22k on admission, trending down to 20K Received cefepime and Levaquin in ER On Zosyn on doxycycline Lactic acid elevated possible due to hypoxia Procalcitonin normal Flu negative Blood cultures pending Will D/C Zosyn and doxycycline for now since procalcitonin normal that r/o any bacterial infection CXR showed pulmonary edema 12/07 procalcitonin elevated today doxy and cefepime started this morning Will d/c abx since code status 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 measure only HHS Underlying DM type 2 Serum osmolality 314 was on insulin drip that was D/C On insulin coverage pharmacy consulted for glycemic coverage MIREILLE ON CKD STAGE III Possible cardiorenal syndrome Creat 2.4 on admission; was 1.9 on day of last discharge (Creat elevated to >3 during that admission) Creatine today 2.1 Nephrology consulted appreciated 3/31 Made EMERGENCY SERVICES 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 will d/c am lab MILDLY ELEVATED TROPONIN With atypical chest pain Hx CAD s/p CABG EKG- no evidence of acute ischemia Continue Plavix, statin continue monitor in telemetry 12/07 made EMERGENCY SERVICES 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 d/c tele monitor Family requested to transfer to a quiet room in the 4th fr PAROXYSMAL ATRIAL FIBRILLATION Currently in paced rhythm Continue amiodarone Continue Eliquis with current dose as per cardio 12/07 will d/c 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 HYPERTENSION BP is stable Continue lasix spironolactone on hold 12/07 Will d/c BP meds since made EMERGENCY SERVICES 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 HYPOTHYROIDISM Continue levothyroxine DYSLIPIDEMIA Continue statin DVT PROPHYLAXIS Was On Eliquis CODE STATUS DNR/DNI family changed to comfort measure only DISPOSITION Comfort measure only Consultants: Cardio Nephro Palliative care Current Inpatient Medications: Current Inpatient Medications Medications (Trade) Dose Ordered Sig/Mireille Route Start Time Stop Time Status Last Admin Dose Admin Ondansetron HCl (Zofran Inj) 4 mg Q6H PRN IV 12/05/16 20:30 01/04/17 20:29 12/07/16 18:44 4 MG Nitroglycerin 0.4 mg 0.4 mg UD PRN UT 12/05/16 21:00 01/04/17 20:59 Morphine Sulfate/ Dextrose (Morphine Sulf/ Nss 250MG/250ML) 250 ml @ 8 mls/hr Q24H PRN IV 12/07/16 17:00 12/21/16 16:59 12/09/16 05:33 8 MLS/HR Morphine Sulfate 2 mg 2 mg Q1H PRN IV 12/07/16 17:00 12/21/16 16:59 12/07/16 16:40 2 MG Lorazepam/Syringe (Ativan Inj/ Syringe) 1 ml @ 1 mls/min Q2H PRN IV 12/08/16 19:00 01/07/17 18:59 12/09/16 04:38 1 MLS/MIN Lorazepam (Ativan Inj) 0.5 mg Q2H PRN IV 12/08/16 19:00 01/07/17 18:59 12/09/16 15:31 0.5 MG Ipratropium [place] (Atrovent 0.02% 0.5MG/2.5ML Neb) 0.5 mg Q6R PRN INH 12/09/16 16:30 01/08/17 16:29 Levalbuterol (Xopenex 1.25MG/ 0.5ML Neb) 1.25 mg Q6R PRN INH 12/09/16 16:30 01/08/17 16:29
[2016-12-10] MEDS: MORPHINE SULF/NSS 250MG/250ML IV PRN (14:31)
--- NOTE | 2016-12-10 15:55 | Palliative Care Progress Note ---
Palliative Care Progress Note Date of Service Dec 10, 2016. Subjective Pt evaluation today including: conversation w/ family Brief follow up visit with patient and his /POA, Demi: Patient is obtunded, morphine gtt infusing at 8mg/hr. He has been unresponsive since Saturday evening/Saturday morning per nursing. His respirations are now shallow and irregular, rate is slowing. I stood at the bedside with Demi for a while and provided support. She has no questions or concerns and was very appreciate of the care her has received. No further recommendations at this time. She is aware that patient has hours, possibly 24-48 more hours, to live. In my opinion, patient is not stable for discharge for fear of not surviving the transfer. Please contact me with any further palliative needs.
--- NOTE | 2016-12-11 14:00 | Discharge Summary ---
Discharge Summary Date of Service Dec 11, 2016. Discharge Summary Admission Date: Dec 05, 2016 at 20:18 Discharge Disposition: Principal Diagnosis: Acute Hypoxic respiratory failure Secondary Diagnoses/Problems: ACUTE SYSTOLIC CHF Leukocytosis MIREILLE on CKD stage 3 MILDLY ELEVATED TROPONIN P. Afib HTN Consultations: Cardio Nephro Palliative care Critical care Admission Information HPI (per Admitting provider): This is an 81 year old male with PMH of CAD s/p CABG, systolic CHF EF <15% s/p pacemaker defibrillator, PAF on Eliquis, HTN, DM type 2, PVD, CKD stage III, and other problems listed below who presents to the ED for SOB. Pt was recently admitted 11/28-12/01 for MIREILLE and hyperkalemia. Pt's Lasix dose was to 20 mg BID, spironolactone continued, and lisinopril was stopped. Pt states he was initially feeling fine since discharge 4 days ago then today after 2 doctor appointments became SOB. At baseline patient is ROBERT[place] on ambulating across the room, but today was SOB at rest. Has chronic orthopnea. In the ER patient was hypoxic to 88% which improved on BiPAP. He reports chest pain while in the ER described as pulling and jabbing which starts in left chest near pacer and radiates across to R chest and to left axilla. Pt states he has similar pain on chronic basis which occurs randomly. States this pain feels different from prior MO. Pt reports cough with yellow sputum starting today. Had one posttussive vomiting episode. Had rhinorrhea past few weeks. He chronically feels cold. Pt's weight increased approx 1 kg since he was discharged. Denies diaphoresis, fever, sinus pressure, ear ache, sore throat, swallowing difficulty , palpitations, abdominal pain, diarrhea, dysuria, frequency, wounds or rashes, LE edema, calf pain. Denies recent infection or antibiotics. Physical Exam (per Admitting): General Appearance: + pertinent finding (alert elderly male lying in bed on BiPAP, family at bedside) Head: normocephalic, atraumatic Eyes: normal inspection, PERRL, EOMI ENT: hearing grossly normal, + pertinent finding (unable to examine pharynx due to BiPAP in place) Neck: supple, no JVD, trachea midline Respiratory/Chest: no respiratory distress, no accessory muscle use, + crackles (severe crackles bilateral bases ), + pertinent finding (saturating well on BiPAP. + reproducible anterior chest wall pain) Cardiovascular: regular rate, rhythm, no murmur Abdomen/GI: normal bowel sounds, non tender, soft Extremities/Musculoskelatal: no calf tenderness, no pedal edema Neurologic/Psych: alert, normal mood/affect, oriented x 3, + pertinent finding (grossly nonfocal) Skin: normal color, warm/dry Hospital Course ACUTE HYPOXIC RESPIRATORY FAILURE Mostly secondary to acute systolic CHF Pulmonary edema slightly improved radiographically from the prior study on 12/07 BiPAP was resumed, and later discontinue because pt and family refused and pt was made comfort measure only Patient and Family do not want any aggressive management. Family wants pt to go to transfer to a quiet place on the 4th floor Family made aware that pt will not be placed on a heart monitor since code status changed to comfort measure only Will d/c lab and will keep him comfortable. On comfort measure morphine pump ACUTE SYSTOLIC CHF Decompensated Ischemic cardiomyopathy with EF <15% s/p biventricular pacemaker/ defibrillator Lasix dose decreased on recent hospitalization due to MIREILLE Was on IV Lasix 40 mg Cardiology on board appreciate input monitor I/O Made comfort measure Leukocytosis R/O pneumonia WBC 22k on admission, trending down to 20K Received cefepime and Levaquin in ER On Zosyn on doxycycline Lactic acid elevated possible due to hypoxia Procalcitonin normal Flu negative Blood cultures pending Will D/C Zosyn and doxycycline for now since procalcitonin normal that r/o any bacterial infection CXR showed pulmonary edema 12/07 procalcitonin elevated today doxy and cefepime started this morning Will d/c abx since 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 HHS Underlying DM type 2 Serum osmolality 314 was on insulin drip that was D/C On insulin coverage pharmacy consulted for glycemic coverage MIREILLE ON CKD STAGE III Possible cardiorenal syndrome Creat 2.4 on admission; was 1.9 on day of last discharge (Creat elevated to >3 during that admission) Creatine today 2.1 Nephrology consulted appreciated 12/07 Made MANUFACTURING WORKER will d/c am lab MILDLY ELEVATED TROPONIN With atypical chest pain Hx CAD s/p CABG EKG- no evidence of acute ischemia Continue Plavix, statin continue monitor in telemetry 12/07 made MANUFACTURING WORKER d/c tele monitor Family requested to transfer to a quiet room in the 4th fr PAROXYSMAL ATRIAL FIBRILLATION Currently in paced rhythm Continue amiodarone Continue Eliquis with current dose as per cardio 12/07 will d/c anticoagulant since made intake rn HYPERTENSION BP is stable Continue lasix spironolactone on hold 12/07 Will d/c BP meds since 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 Discharge Instructions Pt was made comfort measure only and on 12/10/16. Additional Copies To Sobeida Cabrera M.D. Lombardo, Mark, PA-C
== END 2016-12-10 20:45 | disposition expired | DRG 291 ==
LOC: ENRESERVDT → ENRESERVTM → EDBD 17:43 → C.ED 17:44 → C.MSICU 20:18 → C.4E 12-07 16:35
PROVIDERS: ADMIT Internal Medicine; ATTEND Internal Medicine
DX: I50.23 Acute on chronic systolic (congestive) heart failure (principal); J96.01 Acute respiratory failure with hypoxia; N17.9 Acute kidney failure, unspecified; I13.0 Hypertensive heart and chronic kidney disease with heart failure and stage 1 through stage 4 chronic kidney disease, or unspecified chronic kidney disease; Z51.5 Encounter for palliative care; I25.10 Atherosclerotic heart disease of native coronary artery without angina pectoris; I48.0 Paroxysmal atrial fibrillation; N18.3 Chronic kidney disease, stage 3 (moderate); E03.9 Hypothyroidism, unspecified; E78.5 Hyperlipidemia, unspecified; Z83.3 Family history of diabetes mellitus; Z95.1 Presence of aortocoronary bypass graft; Z87.891 Personal history of nicotine dependence; Z95.810 Presence of automatic (implantable) cardiac defibrillator; Z95.0 Presence of cardiac pacemaker; Z80.1 Family history of malignant neoplasm of trachea, bronchus and lung; Z79.02 Long term (current) use of antithrombotics/antiplatelets; Z79.01 Long term (current) use of anticoagulants; I25.5 Ischemic cardiomyopathy; E11.22 Type 2 diabetes mellitus with diabetic chronic kidney disease; Z66 Do not resuscitate